=== PATIENT | female | born 1970 | race Caucasian/White ===

== ENCOUNTER 2021-11-19 15:20 | Inpatient (IN) ==
[2021-11-19 16:30] LABS: Basophils # (auto) 0.02 K/uL (0-0.2); Basophils % (auto) 0.1 %; Eosinophils # (auto) 0.03 K/uL (0-0.5); Eosinophils % (auto) 0.2 %; Hematocrit (blood only) 40.8 % (37-47); Hemoglobin 13.4 g/dL (12.0-16.0); Immature Granulocytes # (auto) 0.02 K/uL (0.00-0.02); Immature Granulocytes % (auto) 0.1 %; Lymphocytes # (auto) 1.17 K/uL (1.2-3.4); Lymphocytes % (auto) 8.3 %; Mean Corpuscular Hemoglobin 31.5 pg (25-34); Mean Corpuscular Hgb Conc 32.8 g/dL (32-36); Mean Corpuscular Volume 95.8 fL (80-100); Mean Platelet Volume 9.2 fL (7.4-10.4); Monocytes # (auto) 1.13 K/uL (0.11-0.59); Neutrophils # (auto) 11.68 K/uL (1.4-6.5); Neutrophils % (auto) 83.3 %; Platelet Count 266 K/uL (130-400); RDW Coefficient of Variation 13.1 % (11.5-14.5); RDW Standard Deviation 45.5 fL (36.4-46.3); Red Blood Count 4.26 M/uL (4.2-5.4); White Blood Count 14.05 K/uL (4.8-10.8)
[2021-11-19 16:52] LABS: Albumin Globulin Ratio 1.6 (0.9-2); Albumin Level 4.4 gm/dl (3.4-5.0); BUN Creatinine Ratio 13.8 (10-20); Bilirubin,Total 0.7 mg/dl (0.2-1.0); Calcium 9.5 mg/dl (8.5-10.1); Creatinine Clr Calc Pharmacy 90.8 ml/min; Est GFR (Non-African American) 105.2 ml/min; Globulin 2.8 gm/dl (2.5-4.0); Potassium 3.4 mmol/L (3.5-5.1); Total Protein 7.2 gm/dl (6.0-8.3)
[2021-11-19] MEDS ORDERED: KETOROLAC TROMETHAMINE 15 MG/ML VIAL IV STA ×2 (17:20→19:14)
[2021-11-19] MEDS ORDERED: ONDANSETRON INJ 2 MG/ML 2 ML VIAL IV STA (17:20)
[2021-11-19] MEDS ORDERED: SODIUM CHLORIDE 0.9% 1000ML 1,000 ML IV ONE (17:20)
[2021-11-19] MEDS ORDERED: OPTIRAY 320 100ml IV ONE (17:40)
--- NOTE | 2021-11-19 17:53 | CT Scan Report ---
ABDOMEN AND PELVIS CT WITH IV CONTRAST CT DOSE: 246.55 mGy.cm HISTORY: Left lower quadrant pain. TECHNIQUE: Multiaxial CT images of the abdomen and pelvis were performed following the use of intrave nous contrast. A dose lowering technique was utilized adhering to the principles of ALARA. COMPARISON STUDY: Abdomen and pelvis CT 02/13/2016. FINDINGS: The lung bases are clear. No pneumoperitoneum. No pneumatosis. No fractures within the visu alized osseous structures. The 6 mm stone versus polyp within the gallbladder on image 92. No gallbla dder wall thickening. The liver, spleen, adrenal glands, and pancreas are unremarkable. The kidneys e nhance normally. No hydronephrosis. The bladder, uterus, bilateral adnexa are within normal limits. T here is trace pelvic free fluid. This may be physiologic. No retroperitoneal lymphadenopathy. Normal caliber abdominal aorta. The main portal vein is patent. No pelvic lymphadenopathy. Prior sigmoid shakir stomosis. Scattered colonic diverticula. Focal thickening within the splenic flexure of the colon wit h pericolonic fat stranding within inflamed diverticulum. This is consistent with an acute diverticul itis. No perforation or abscess at this time. IMPRESSION: 1. Acute diverticulitis at the splenic flexure of the colon. No perforation or abscess at this time. Follow-up colonoscopy should be considered once the diverticulitis has resolved to exclude the less l ikely possibility of underlying colonic lesion. 2. A 6 mm stone versus polyp within the gallbladder. This can be further assessed with follow-up none mergent abdominal ultrasound. No gallbladder wall thickening. ACT 112: Positive. There are findings on this exam that require communication between the performing entity and the patient following Patient Test Result Information Act ([place] Act 112) guidelines. Electronically signed by: Tomer Stone M.D. 11/19/2021 5:52 PM
[2021-11-19] MEDS ORDERED: ERTAPENEM SODIUM 10 ML IV STA (18:11)
--- NOTE | 2021-11-19 18:53 | History & Physical Report ---
Date of Service November 19, 2021 History of Present Illness Chief Complaint: Abdominal pain Primary Care Provider: Sheron Gracia DO Patient is 51 y/o F with PMH Allergies Allergy/AdvReac Type Severity Reaction Status Date / Time metronidazole Allergy Severe Lip Verified 11/19/21 18:47 swelling, hives topiramate Allergy Severe SOB/HIVES Unverified 11/19/21 18:47 amoxicillin Allergy Unknown Rash Unverified 11/19/21 18:47 Cipro Allergy Unknown SWELLING Unverified 02/13/16 19:58 ciprofloxacin Allergy Unknown SWELLING Unverified 11/19/21 18:47 clavulanic acid Allergy Unknown RASH Unverified 11/19/21 18:47 propranolol Allergy Unknown Anxiety Unverified 11/19/21 18:47 morphine Allergy Hives Verified 11/19/21 18:47 imipenem AdvReac Mild Nausea Unverified 11/19/21 18:47 Home Medications Medication Instructions Recorded Confirmed Type Estrogen Cream 1 dose VAGINAL 2XWK 07/15/20 11/19/21 History ascorbic acid (vitamin C) 500 mg 500 mg PO QAM 07/15/20 11/19/21 History tablet (Vitamin C) multivitamin 1 tab PO QAM 07/15/20 11/19/21 History psyllium husk 3.4 gram/5.4 gram 1 tbsp PO HS 07/15/20 11/19/21 History oral powder (Metamucil) Turmeric Curcumin 1 tab PO DAILY 11/19/21 11/19/21 History acetaminophen 325 mg tablet 650 mg PO QID PRN 11/19/21 11/19/21 History (Tylenol) cholecalciferol (vitamin D3) 125 125 mcg PO DAILY 11/19/21 11/19/21 History mcg (5,000 unit) tablet (Vitamin D3) ibuprofen 200 mg tablet (Advil) 400 mg PO Q6H PRN 11/19/21 11/19/21 History Past Med/Surg History Medical History (Updated 11/19/21 @ 18:12 by Bryce Ospina) Carpal tunnel syndrome Diverticular disease Hearing deficit Rt HERNANDEZ History of melanoma Migraines Surgical History History of bowel resection History of colonoscopy History of D&C History of ear surgery History of melanoma excision History of wisdom tooth extraction Family History Grandmother (Paternal) Diabetes Other No family history of adverse response to anesthesia Social History Smoking Status: Never smoker Second Hand Exposure: Yes (as a child); Hx Alcohol Use: No Hx Substance Use: No Preferred Language: Portuguese Communication Ability: Effective Chiropractor Assistant Required: No Beliefs That Will Affect Care: None Current Living Situation: Spouse Feels Safe at Home: Yes Assistive Devices: Glasses and Hearing Aid - Right Results & Data Results & Data ([facility]) Vital Signs (Past 12 Hours) Vital Signs Temp Pulse Pulse Resp BP BP Pulse Ox 11/19/21 17:52 104 H 18 129/83 99 11/19/21 17:09 113 H 16 159/90 H 99 11/19/21 15:51 37.2 C 115 H 20 110/72 97
--- NOTE | 2021-11-19 19:42 | Emergency Department Note ---
History of Present Illness General Chief Complaint: GI Assessment Stated Complaint: LLQ ABDOMINAL PAIN, HX DIVERTICULITIS Time Seen by Provider: 11/19/21 16:59 History of Present Illness Provider Complaint: abdominal pain Onset (ago): day(s) Pain Consistency: intermittent Location: diffuse Severity: moderate Maximum Pain Intensity: 4 Current Pain Intensity: 4 Quality: + stabbing and + sharp Relieved By: + nothing Exacerbated By: + nothing Context: + history of similar episodes (Feels like diverticulitis but not located in the left lower quadrant); no foreign travel, no possible food poisoning, no sick contacts, no recent antibiotic use, no recent surger y/procedure or no recent injury Associated Symptoms: + nausea; no vomiting, no diarrhea, no fever, no chills, no constipation, no dysuria, no hematemesis, no hematochezia, no melena, no hematuria, no anorexia, no syncope, no headache, no neck pain, no back pain, no chest pain, no weakness, no breathing difficulty and no numbness Related Data Patient Confirmed : No Home Medications Medication Instructions Recorded Confirmed Type Estrogen Cream 1 dose VAGINAL 2XWK 07/15/20 11/19/21 History ascorbic acid (vitamin C) 500 mg 500 mg PO QAM 07/15/20 11/19/21 History tablet (Vitamin C) multivitamin 1 tab PO QAM 07/15/20 11/19/21 History psyllium husk 3.4 gram/5.4 gram 1 tbsp PO HS 07/15/20 11/19/21 History oral powder (Metamucil) Turmeric Curcumin 1 tab PO DAILY 11/19/21 11/19/21 History acetaminophen 325 mg tablet 650 mg PO QID PRN 11/19/21 11/19/21 History (Tylenol) cholecalciferol (vitamin D3) 125 125 mcg PO DAILY 11/19/21 11/19/21 History mcg (5,000 unit) tablet (Vitamin D3) ibuprofen 200 mg tablet (Advil) 400 mg PO Q6H PRN 11/19/21 11/19/21 History Allergies Allergy/AdvReac Type Severity Reaction Status Date / Time metronidazole Allergy Severe Lip Verified 11/19/21 18:47 swelling, hives topiramate Allergy Severe SOB/HIVES Unverified 11/19/21 18:47 amoxicillin Allergy Unknown Rash Unverified 11/19/21 18:47 Cipro Allergy Unknown SWELLING Unverified 02/13/16 19:58 ciprofloxacin Allergy Unknown SWELLING Unverified 11/19/21 18:47 clavulanic acid Allergy Unknown RASH Unverified 11/19/21 18:47 propranolol Allergy Unknown Anxiety Unverified 11/19/21 18:47 morphine Allergy Hives Verified 11/19/21 18:47 imipenem AdvReac Mild Nausea Unverified 11/19/21 18:47 Past Med/Surg History Medical History Carpal tunnel syndrome Diverticular disease Diverticulitis Hearing deficit Rt HERNANDEZ History of melanoma Migraines Surgical History History of bowel resection History of colonoscopy History of D&C History of ear surgery History of melanoma excision History of wisdom tooth extraction Family History Grandmother (Paternal) Diabetes Other No family history of adverse response to anesthesia Social History Smoking Status: Never smoker Second Hand Exposure: Yes (as a child); Hx Alcohol Use: No Hx Substance Use: No Preferred Language: Chilean Communication Ability: Effective Garment Sorter Required: No Beliefs That Will Affect Care: None Current Living Situation: Spouse Feels Safe at Home: Yes Assistive Devices: Glasses and Hearing Aid - Right Review of Systems A total of 10 systems reviewed and were otherwise negative Physical Exam Vital Signs: Vital Signs - 24 hr 11/19/21 15:51 11/19/21 17:09 11/19/21 17:52 Temperature 37.2 C Temperature Source Skin Pulse Rate 115 H Pulse Rate [Finger ] 113 H 104 H Pulse Rhythm Regular Pulse Strength Normal Respiratory Rate 20 16 18 Respiratory Effort / Characteristics Non-Labored Sponta neous Respiratory Depth Normal Respiratory Patter n Regular Blood Pressure 110/72 Blood Pressure [Le ft Arm] 159/90 H 129/83 Blood Pressure Fabiola n 84 Blood Pressure Fabiola n [Left Arm] 113 98 Pulse Oximetry 97 99 99 Oxygen Delivery Me thod Room Air Sepsis Recent Feve r Within 48 Hours No Sepsis New/Unexpla ined Change in Men lucy Status N/A Sepsis Action Take n by Nursing No Action Required Physical Exam: Physical Exam GENERAL: She is oriented to person, place, and time. She appears well-developed and well-nourished. She does not appear distressed. HENT: Exam performed. -Head: Normocephalic and atraumatic. -Right Ear: External ear normal. No mastoid tenderness. -Left Ear: External ear normal. No mastoid tenderness. -Mouth/Throat: The oropharynx is clear and moist. No trismus in the jaw. No dental abscesses or uvula swelling. No oropharyngeal exudate or tonsillar abscesses. EYES: Conjunctivae and EOM are normal. Pupils are equal, round, and reactive to light. Right eye exhibits no discharge. Left eye exhibits no discharge. No scleral icterus. NECK: Normal range of motion. Neck supple. No JVD present. No spinous process tenderness present. No carotid bruit present. No rigidity. No tracheal deviation and normal range of motion present. No Brudzinski's sign and no Kernig's sign noted. CV: Normal rate, regular rhythm, normal heart sounds and intact distal pulses. There is no peripheral edema. Palpable radial pulses bue. PULM/CHEST: Effort normal and breath sounds normal. No respiratory distress. No stridor. She has no wheezes. She has no rales. -Chest Wall: She exhibits no tenderness. ABD: The abdomen is soft. Bowel sounds are normal. She has no distension. No mass is present. There is tenderness to palpation of the abdomen diffusely There is no rebound, no guarding, no Bernstein's sign and no tenderness at McBurney's point. Rovsig negative MUSC/SKEL: Normal range of motion. There is no peripheral edema, tenderness or deformity. LYMPH: No cervical adenopathy. NEURO: She is alert and oriented to person, place, and time. She has normal strength. No cranial nerve deficit or sensory deficit. Coordination and gait normal. GCS eye subscore is 4. GCS verbal subscore is 5. GCS motor subscore is 6. Cerebellar tests wnl. SKIN: Skin is warm and dry. She is not diaphoretic. PSYCH: She has a normal mood and affect. Behavior is normal. Judgment and thought content normal. Course Course 1658: The patient was evaluated in room C6. A complete history and physical exam was performed Cardiac monitoring: An order was placed for continuous cardiac monitoring. The monitor shows a rate of 120 with sinus tachycardia rhythm 1852: Vital signs stable. Labs show leukocytosis of 14. CT shows sigmoid d iverticulitis. EMR reviewed. Patient has a history of diverticulitis and a history of diverticular perforation. Patient had to be on IV antibiotics for quite some time. Patient had her sigmoid colon removed at [place] due to her recurrent diverticulitis flares. Pharmacy assisted and suggested ertapenem for the patient given her allergies and previous history. Patient be admitted to the [facility] team spoke with Lisette who stated to admit to Dr. Quintero Administered Medications Discontinued Medications Sodium Chloride (Nss 1000ml) 1,000 mls @ 999 mls/hr IV .Q1H1M ONE Stop: 11/19/21 18:20 Last Admin: 11/19/21 17:25 Dose: 999 mls/hr Documented by: [id number] Ertapenem (Invanz) 10 mls @ 2 mls/min IV NOW STA Stop: 11/19/21 18:15 Last Admin: 11/19/21 18:16 Dose: 2 mls/min Documented by: [id number] Ioversol (Optiray 320 100ml) 93 ml IV ONCE ONE Stop: 11/19/21 17:41 Last Admin: 11/19/21 17:41 Dose: 93 ml Documented by: [id number] Ketorolac Tromethamine (Ketorolac Tromethamine 15 Mg/Ml Vial) 15 mg IV NOW STA Stop: 11/19/21 17:21 Last Admin: 11/19/21 17:25 Dose: 15 mg Documented by: [id number] Ketorolac Tromethamine (Ketorolac Tromethamine 15 Mg/Ml Vial) 15 mg IV NOW STA Stop: 11/19/21 19:15 Last Admin: 11/19/21 19:34 Dose: 15 mg Documented by: [id number] Ondansetron HCl (Ondansetron Inj 2 Mg/Ml 2 Ml Vial) 4 mg IV NOW STA Stop: 11/19/21 17:21 Last Admin: 11/19/21 17:25 Dose: 4 mg Documented by: [id number] Medical Decision Making Laboratory Data Result diagrams: 11/19/21 16:16 11/19/21 16:16 Lab Results 11/19/21 11/19/21 11/19/21 Range/Units 16:16 16:16 18:25 WBC 14.05 H (4.8-10.8) K/uL RBC 4.26 (4.2-5.4) M/uL Hgb 13.4 (12.0-16.0) g/dL Hct 40.8 (37-47) % MCV 95.8 (80-100) fL MCH 31.5 (25-34) pg MCHC 32.8 (32-36) g/dL RDW Std Deviation 45.5 (36.4-46.3) fL RDW Coeff of Bartolome 13.1 (11.5-14.5) % Plt Count 266 (130-400) K/uL MPV 9.2 (7.4-10.4) fL Immature Gran % (Auto) 0.1 % Neut % (Auto) 83.3 % Lymph % (Auto) 8.3 % Lynn % (Auto) 8.0 % Eos % (Auto) 0.2 % Baso % (Auto) 0.1 % Neut # (Auto) 11.68 H (1.4-6.5) K/uL Lymph # (Auto) 1.17 L (1.2-3.4) K/uL Lynn # (Auto) 1.13 H (0.11-0.59) K/uL Eos # (Auto) 0.03 (0-0.5) K/uL Baso # (Auto) 0.02 (0-0.2) K/uL Immature Gran # (Auto) 0.02 (0.00-0.02) K/uL Sodium 140 (136-145) mmol/L Potassium 3.4 L (3.5-5.1) mmol/L Chloride 106 (98-107) mmol/L Carbon Dioxide 26 (21-32) mmol/L Anion Gap 8 (3-11) BUN 8 (6-23) mg/dl Creatinine 0.58 L (0.6-1.2) mg/dl Est Cr Clr Drug Dosing 90.8 ml/min Est GFR ( Amer) 122.0 ml/min Est GFR (Non-Af Amer) 105.2 ml/min BUN/Creatinine Ratio 13.8 (10-20) Glucose 108 H (70-99(Fasting)) mg/dl Calcium 9.5 (8.5-10.1) mg/dl Total Bilirubin 0.7 (0.2-1.0) mg/dl AST 38 (13-39) U/L ALT 40 (7-52) U/L Alkaline Phosphatase 98 (34-104) U/L Total Protein 7.2 (6.0-8.3) gm/dl Albumin 4.4 (3.4-5.0) gm/dl Globulin 2.8 (2.5-4.0) gm/dl Albumin/Globulin Ratio 1.6 (0.9-2) Lipase 11 (11-82) U/L SARS-CoV-2, RNA, NAAT NEGATIVE (NEGATIVE) Imaging Data Radiologist's Impression: Abdomen/Pelvis CT 11/19/21 17:[address] WITH IV CONTRAST CT DOSE: 246.55 mGy.cm HISTORY: Left lower quadrant pain. TECHNIQUE: Multiaxial CT images of the abdomen and pelvis were performed following the use of intravenous contrast. A dose lowering technique was utilized adhering to the principles of ALARA. COMPARISON STUDY: Abdomen and pelvis CT 02/13/2016. FINDINGS: The lung bases are clear. No pneumoperitoneum. No pneumatosis. No fractures within the visualized osseous structures. The 6 mm stone versus polyp within the gallbladder on image 92. No gallbladder wall thickening. The liver, spleen, adrenal glands, and pancreas are unremarkable. The kidneys enhance normally. No hydronephrosis. The bladder, uterus, bilateral adnexa are within normal limits. There is trace pelvic free fluid. This may be physiologic. No retroperitoneal lymphadenopathy. Normal caliber abdominal aorta. The main portal vein is patent. No pelvic lymphadenopathy. Prior sigmoid anastomosis. Scattered colonic diverticula. Focal thickening within the splenic flexure of the colon with pericolonic fat stranding within inflamed diverticulum. This is consistent with an acute diverticulitis. No perforation or abscess at this time. IMPRESSION: 1. Acute diverticulitis at the splenic flexure of the colon. No perforation or abscess at this time. Follow-up colonoscopy should be considered once the diverticulitis has resolved to exclude the less likely possibility of underlying colonic lesion. 2. A 6 mm stone versus polyp within the gallbladder. This can be further assessed with follow-up nonemergent abdominal ultrasound. No gallbladder wall thickening. ACT 112: Positive. There are findings on this exam that require communication between the performing entity and the patient following Patient Test Result Information Act ([place] Act 112) guidelines. Electronically signed by: Tomer Stone M.D. 11/19/2021 5:52 PM MDM Narrative Vital signs stable. Labs show leukocytosis of 14. CT shows sigmoid diverticulitis. EMR reviewed. Patient has a history of diverticulitis and a history of diverticular perforation. Patient had to be on IV antibiotics for quite some time. Patient had her sigmoid colon removed at [place] due to her recurrent diverticulitis flares. Pharmacy assisted and suggested ertapenem for the patient given her allergies and previous history. Patient be admitted to the [facility] team spoke with Lisette who stated to admit to Dr. Quintero Impression & Plan Diverticulitis Discharge Plan Visit Data Chief Complaint: GI Assessment Stated Complaint: LLQ ABDOMINAL PAIN, HX DIVERTICULITIS ED Provider: Bryce Ospina Discharge Problem: Diverticulitis Patient Disposition: Admitted As Inpatient Forms Stand Alone Forms: [facility] [employer] Prescriptions Prescriptions: No Action ascorbic acid (vitamin C) [Vitamin C] 500 mg Tablet 500 mg PO QAM RF: 0 Metamucil 3.4 gram/5.4 gram Powder 1 tbsp PO HS RF: 0 Estrogen Cream 1 dose vaginal 2XWK RF: 0 multivitamin Tablet 1 tab PO QAM RF: 0 acetaminophen [Tylenol] 325 mg Tablet 650 mg PO QID PRN (Reason: Pain) RF: 0 ibuprofen [Advil] 200 mg Tablet 400 mg PO Q6H PRN (Reason: Pain) RF: 0 cholecalciferol (vitamin D3) [Vitamin D3] 125 mcg (5,000 unit) Tablet 125 mcg PO DAILY RF: 0 Turmeric Curcumin 1 tab PO DAILY RF: 0 Referrals Referrals: Sheron Gracia DO [Primary Care Provider] -
[2021-11-19] MEDS ORDERED: POTASSIUM CHLORIDE CRTAB 20 MEQ TABCR PO STA (19:54)
--- NOTE | 2021-11-19 20:36 | History and Physical Report ---
DATE OF ADMISSION: 11/19/2021. CHIEF COMPLAINT: Abdominal pain. HISTORY OF PRESENT ILLNESS: A 51-year-old female with past medical history significant for recurrent sinusitis, mixed hearing loss unilateral, eustachian tube dysfunction, seems to have history of diverticulitis, history of malignant melanoma, presents with abdominal pain. The pain started yesterday on the left side of abdomen radiating to the lower abdomen, moderate in severity, associated with nausea, no vomiting, no fever, no chills. She had a bowel movement today, it was normal. No blood in stool or black stools. Normal bladder movements. Currently, resting comfortably, hemodynamically stable. Denies any headache. No blurred visions, no earache, no runny nose, no sore throat, no cough, no chest pain, no shortness of breath. No neck pain. No swelling in the legs. ALLERGIES: METRONIDAZOLE, TOPIRAMATE, AMOXICILLIN, CIPRO, CLAVULANIC ACID, PROPRANOLOL, MORPHINE, IMIPENEM. PAST MEDICAL HISTORY: As mentioned above. PAST SURGICAL HISTORY: Colonoscopy, dental surgery, myringotomy, sigmoidectomy for diverticulitis, injection of lumbosacral spine, left leg knee-stage II melanoma. MEDICATIONS: The patient is on multivitamin daily, vitamin C 500 mg p.o. daily, Tylenol p.r.n. FAMILY HISTORY: Significant for mother had arthritis, hypertension; father has hypertension. Maternal grandmother had bladder and liver cancer, paternal grandmother had diabetes. PHYSICAL EXAMINATION: GENERAL: Alert and awake, not in acute distress. VITAL SIGNS: Temperature 37.2, pulse 104, respiratory rate 18, blood pressure 129/83, oxygen 99% on room air. HEENT: Pupils equal, round and reactive to light. Oral mucosa moist. NECK: No JVD. No neck masses. CARDIOVASCULAR: S1 and S2 heard. Regular rate and rhythm. No murmur, no gallop. RESPIRATORY SYSTEM: Normal AP diameter. No accessory muscle use. No wheezing, no crackles. ABDOMEN: Soft, bowel sounds present. Mild left lower quadrant discomfort, no guarding, no rigidity, no distention. CENTRAL NERVOUS SYSTEM: Cranial nerves II-XII grossly intact, nonfocal. EXTREMITIES: No edema, no erythema. LABORATORY DATA: WBC 14, hemoglobin 13.4, hematocrit 40.8, platelets 266. Sodium 140, potassium 3.4, chloride 106, bicarb 26, BUN 8, creatinine 0.5, serum glucose 108, calcium 9.5, total bilirubin 0.7, AST 38, ALT 40, alkaline phosphatase 98, lipase 11. SARS-CoV-2 negative. IMAGING DATA: CT of abdomen and pelvis shows acute diverticulitis at the splenic flexure of the colon. No perforation or abscess. A 6mm stone versus polyp within the gallbladder. ASSESSMENT AND PLAN: This is a 51-year-old female who presents with acute diverticulitis. 1. Acute diverticulitis: N.p.o., IV fluids, IV antiemetics, IV Invanz. Monitor kidney function while patient is on Invanz for any dose adjustments. Surgical consult in a.m. Pain control, IV fluids.Colonoscopy about 8 weeks later. 2. Gallbladder polyp versus stone: We will get a gallbladder ultrasound. 3. Deep venous thrombosis prophylaxis: Sequential compression devices. DISPOSITION: Admit to medical floor. Expect to discharge home and follow with family doctor. Job ID: [id number] [facility]
[2021-11-19] MEDS ORDERED: ACETAMINOPHEN 325 MG TAB PO PRN (21:03)
[2021-11-19] MEDS ORDERED: ONDANSETRON INJ 2 MG/ML 2 ML VIAL IV PRN (21:03)
[2021-11-19] MEDS: D5W AND 1/2NSS 1,000 ML IV SCH (21:47)
--- NOTE | 2021-11-19 23:58 | Surgery Consultation ---
Date of Consultation November 19, 2021 Assessment & Plan (1) Diverticulitis large intestine: pt is a 51 year-old female who presents to ER with left side abdominal pain, pt had sigmoid colectomy in 2016 at [facility], Plan, I agree with conservative treatment, NPO, IV fluid, iv antibiotic, control pain, repeat labs in morning, U/S study gallbladder, and colonoscopy( wait 2-3 months) out-patient setting, will F/U, pt agrees with the plan, I answered all questions, History of Present Illness Reason for Consultation: diverticulitis Requesting Physician: Ramy Quintero MD Attending Physician: Ramy Quintero MD History of Present Illness CHIEF COMPLAINT: Abdominal pain. HISTORY OF PRESENT ILLNESS: A 51-year-old female with past medical history significant for recurrent sinusitis, mixed hearing loss unilateral, eustachian tube dysfunction, seems to have history of diverticulitis, history of malignant melanoma, presents with abdominal pain. The pain started yesterday on the left side of abdomen radiating to the lower abdomen, moderate in severity, associated with nausea, no vomiting, no fever, no chills. She had a bowel movement today, it was normal. No blood in stool or black stools. Normal bladder movements. Currently, resting comfortably, hemodynamically stable. Denies any headache. No blurred visions, no earache, no runny nose, no sore throat, no cough, no chest pain, no shortness of breath. No neck pain. No swelling in the legs. I ( Luis Jiménez MD ) got a call for consult diverticulitis, I reviewed pt's H/P, labs, CT scan with pt, pt had sigmoid colo resection for diverticulitis in 2016, ALLERGIES: METRONIDAZOLE, TOPIRAMATE, AMOXICILLIN, CIPRO, CLAVULANIC ACID, PROPRANOLOL, MORPHINE, IMIPENEM. PAST MEDICAL HISTORY: As mentioned above. PAST SURGICAL HISTORY: Colonoscopy, dental surgery, myringotomy, sigmoidectomy for diverticulitis, injection of lumbosacral spine, left leg knee-stage II melanoma. MEDICATIONS: The patient is on multivitamin daily, vitamin C 500 mg p.o. daily, Tylenol p.r.n. FAMILY HISTORY: Significant for mother had arthritis, hypertension; father has hypertension. Maternal grandmother had bladder and liver cancer, paternal grandmother had diabetes. Allergies Allergy/AdvReac Type Severity Reaction Status Date / Time metronidazole Allergy Severe Lip Verified 11/19/21 18:47 swelling, hives topiramate Allergy Severe SOB/HIVES Unverified 11/19/21 18:47 amoxicillin Allergy Unknown Rash Unverified 11/19/21 18:47 Cipro Allergy Unknown SWELLING Unverified 02/13/16 19:58 ciprofloxacin Allergy Unknown SWELLING Unverified 11/19/21 18:47 clavulanic acid Allergy Unknown RASH Unverified 11/19/21 18:47 propranolol Allergy Unknown Anxiety Unverified 11/19/21 18:47 morphine Allergy Hives Verified 11/19/21 18:47 imipenem AdvReac Mild Nausea Unverified 11/19/21 18:47 Home Medications Medication Instructions Recorded Confirmed Type Estrogen Cream 1 dose VAGINAL [id number] 07/15/20 11/19/21 History ascorbic acid (vitamin C) 500 mg 500 mg PO QAM 07/15/20 11/19/21 History tablet (Vitamin C) multivitamin 1 tab PO QAM 07/15/20 11/19/21 History psyllium husk 3.4 gram/5.4 gram 1 tbsp PO HS 07/15/20 11/19/21 History oral powder (Metamucil) Turmeric Curcumin 1 tab PO DAILY 11/19/21 11/19/21 History acetaminophen 325 mg tablet 650 mg PO QID PRN 11/19/21 11/19/21 History (Tylenol) cholecalciferol (vitamin D3) 125 125 mcg PO DAILY 11/19/21 11/19/21 History mcg (5,000 unit) tablet (Vitamin D3) ibuprofen 200 mg tablet (Advil) 400 mg PO Q6H PRN 11/19/21 11/19/21 History Patient History Medical History Carpal tunnel syndrome Diverticular disease Diverticulitis Hearing deficit Rt HERNANDEZ History of melanoma Migraines Surgical History History of bowel resection History of colonoscopy History of D&C History of ear surgery History of melanoma excision History of wisdom tooth extraction Family History Grandmother (Paternal) Diabetes Other No family history of adverse response to anesthesia Social History Smoking Status: Never smoker Second Hand Exposure: No; Do You Dip or Chew Tobacco: No; Tobacco Cessation Education Requested by Patient: No Hx Alcohol Use: No Hx Substance Use: No Preferred Language: Nepalese Communication Ability: Effective Pens And Pencils Repairer Required: No Beliefs That Will Affect Care: None Current Living Situation: Spouse Other Information That Helps Us Care for You: No Feels Safe at Home: Yes Safety Concerns: Feels Safe At This Time Assistive Devices: Glasses and Hearing Aid - Right Physical Exam Constitutional: WD/WN, vitals as above Eyes: PERRL, conjunctivae normal, anicteric sclerae Neck: trachea midline, no thyromegaly Respiratory: normal respiratory effort, lungs clear to auscultation Cardiovascular: RRR, no murmur, no edema Gastrointestinal (Abdomen): soft, mild tenderness at left side abdomen, no rebound pain, no distend, BS + Musculoskeletal: no cyanosis or clubbing, extremities motor strength 5/5 Neurologic: patellar DTR's 2+ bilat, sensation intact Psychiatric: A+Ox3, euthymic affect Results & Data ([facility]) Vital Signs (Past 12 Hours) Vital Signs Temp Pulse Pulse Resp BP BP Pulse Ox 11/19/21 21:04 37.1 C 81 18 121/75 97 11/19/21 20:12 92 H 19 134/85 97 11/19/21 17:52 104 H 18 129/83 99 11/19/21 17:09 113 H 16 159/90 H 99 11/19/21 15:51 37.2 C 115 H 20 110/72 97 Laboratory Results Abnormal lab results 11/19/21 11/19/21 Range/Units 16:16 16:16 WBC 14.05 H (4.8-10.8) K/uL Neut # (Auto) 11.68 H (1.4-6.5) K/uL Lymph # (Auto) 1.17 L (1.2-3.4) K/uL [place] # (Auto) 1.13 H (0.11-0.59) K/uL Potassium 3.4 L (3.5-5.1) mmol/L Creatinine 0.58 L (0.6-1.2) mg/dl Glucose 108 H (70-99(Fasting)) mg/dl Diagnostic Findings ABDOMEN AND PELVIS CT WITH IV CONTRAST CT DOSE: 246.55 mGy.cm HISTORY: Left lower quadrant pain. TECHNIQUE: Multiaxial CT images of the abdomen and pelvis were performed following the use of intravenous contrast. A dose lowering technique was utilized adhering to the principles of ALARA. COMPARISON STUDY: Abdomen and pelvis CT 02/13/2016. FINDINGS: The lung bases are clear. No pneumoperitoneum. No pneumatosis. No fractures within the visualized osseous structures. The 6 mm stone versus polyp within the gallbladder on image 92. No gallbladder wall thickening. The liver, spleen, adrenal glands, and pancreas are unremarkable. The kidneys enhance normally. No hydronephrosis. The bladder, uterus, bilateral adnexa are within normal limits. There is trace pelvic free fluid. This may be physiologic. No retroperitoneal lymphadenopathy. Normal caliber abdominal aorta. The main portal vein is patent. No pelvic lymphadenopathy. Prior sigmoid anastomosis. Scattered colonic diverticula. Focal thickening within the splenic flexure of the colon with pericolonic fat stranding within inflamed diverticulum. This is consistent with an acute diverticulitis. No perforation or abscess at this time. IMPRESSION: 1. Acute diverticulitis at the splenic flexure of the colon. No perforation or abscess at this time. Follow-up colonoscopy should be considered once the diverticulitis has resolved to exclude the less likely possibility of underlying colonic lesion. 2. A 6 mm stone versus polyp within the gallbladder. This can be further assessed with follow-up nonemergent abdominal ultrasound. No gallbladder wall thickening.
[2021-11-20] MEDS: KETOROLAC 30 MG/ML VIAL IV PRN ×2 (03:30→15:10)
[2021-11-20] MEDS: D5W AND 1/2NSS 1,000 ML IV SCH ×3 (05:26→20:05)
[2021-11-20 06:07] LABS: Basophils # (auto) 0.02 K/uL (0-0.2); Basophils % (auto) 0.2 %; Eosinophils # (auto) 0.15 K/uL (0-0.5); Eosinophils % (auto) 1.4 %; Hematocrit (blood only) 34.4 % (37-47); Hemoglobin 11.1 g/dL (12.0-16.0); Immature Granulocytes # (auto) 0.02 K/uL (0.00-0.02); Immature Granulocytes % (auto) 0.2 %; Lymphocytes % (auto) 12.3 %; Mean Corpuscular Hemoglobin 31.3 pg (25-34); Mean Corpuscular Hgb Conc 32.3 g/dL (32-36); Mean Corpuscular Volume 96.9 fL (80-100); Mean Platelet Volume 9.4 fL (7.4-10.4); Monocytes # (auto) 0.96 K/uL (0.11-0.59); Monocytes % (auto) 9.1 %; Neutrophils # (auto) 8.11 K/uL (1.4-6.5); Neutrophils % (auto) 76.8 %; Platelet Count 239 K/uL (130-400); RDW Coefficient of Variation 13.3 % (11.5-14.5); RDW Standard Deviation 46.5 fL (36.4-46.3); Red Blood Count 3.55 M/uL (4.2-5.4); White Blood Count 10.56 K/uL (4.8-10.8)
[2021-11-20 06:41] LABS: Calcium 8.5 mg/dl (8.5-10.1); Creatinine Clr Calc Pharmacy 114.5 ml/min; Est GFR (African American) 131.6 ml/min; Est GFR (Non-African American) 113.6 ml/min; Magnesium 1.9 mg/dl (1.7-2.4); Potassium 3.5 mmol/L (3.5-5.1)
--- NOTE | 2021-11-20 10:29 | Ultrasound Report ---
US gallbladder CLINICAL HISTORY: gallbladder polyp vs stone COMPARISON STUDY: CT of the abdomen and pelvis November 19, 2021. FINDINGS: Liver is sonographically normal. There is no biliary ductal dilatation. Common bile duct me asures 3 mm in caliber. There is no gallbladder wall thickening. No sonographic Bernstein sign was elici mc. Multiple nonmobile echogenic foci adherent to the gallbladder wall are suggestive of polyps. The largest measures 1.3 cm. This contains color flow. No gallstones are identified. Pancreas is unremar kable by sonography. There is no right hydronephrosis. IMPRESSION: 1. Multiple gallbladder polyps that measure up to 1.3 cm. Nonemergent Surgical consultation is recomm ended as cholecystectomy is typically indicated for polyps larger than 1 cm. 2. No biliary ductal dilatation. ACT 112: Negative or not required by law. Electronically signed by: Johnny Perez M.D. 11/20/2021 10:28 AM
[2021-11-20] MEDS: ADVANCED PROBIOTIC 1250 MG CAPSULE PO SCH (10:51)
[2021-11-20] MEDS: MULTIVITAMIN TAB PO SCH (10:52)
[2021-11-20] MEDS: CHOLECALCIFEROL 5,000 UNITS 125 MCG TAB PO SCH (10:53)
--- NOTE | 2021-11-20 12:48 | Hospitalist Progress Note ---
Date of Service November 20, 2021 Assessment & Plan (1) Diverticulitis large intestine: Plan: 51-year-old female with past medical history significant for recurrent sinusitis, mixed hearing loss unilateral, eustachian tube dysfunction,rec diverticulitis, malignant melanoma, C. 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 She is being managed for the followin. Acute diverticulitis: History of recurrent diverticulitis, allergies to metronidazole/ciprofloxacin/Augmentin in the past. History of recurrent C. difficile in the past. History of colon resection 2016 for complicated diverticulitis with perforation. Patient does not smoke tobacco/does not drink alcohol/does not use illegal drugs. Patient uses laxatives daily to avoid constipation. Admitting CTAP: Acute diverticulitis at the splenic flexure of the colon. Surgery on board, appreciate recommendations. N.p.o., plan to transition to clear liquid diet if pain improves. Patient reports improving pain, IV fluids, IV antibiotics, IV ertapenem, monitor kidney function while patient on ertapenem Follow-up with GI or surgery as an outpatient for colonoscopy in 2 to 3 months. 2. Gallbladder polyp: 11/20 USG gallbladder: Multiple gallbladder polyps that measures up to 1.3 cm Follow-up with surgery for likely cholecystectomy. Surgery on board, appreciate recommendations. 3. Deep venous thrombosis prophylaxis: Heparin Disposition: Downgrade to MedSurg, likely DC in 1 to 2 days with improvement of pain and if she tolerates diet. She will likely need current IV antibiotics upon discharge. Admission and Anticipated Discharge Date Admission Date: November 19, 2021 Subjective Patient seen and examined at bedside as a follow-up for acute diverticulitis and gallbladder polyp. Patient lying in bed, on room air, NAD, no new acute events overnight. Patient reports improving belly pain. Patient has not moved bowel since yesterday morning. Patient remains n.p.o. Plan to initiate clear liquid diet later in the day if pain continues to be better. Patient reports headache [patient does have migraine and she gets those headaches on and off with lack of sleep and lack of caffeine], patient given Tylenol, continue to monitor. Patient denies dizziness/cough/chest pain/palpitations/pain or burning with passing urine/other review of symptoms. Physical Exam Physical Exam: GENERAL: Alert and oriented x3. NAD, on RA. HEENT: No pallor, no icterus. Pupils equal, round and reactive to light. Oral mucosa moist. NECK: No JVD, no neck masses. HEART: S1 and S2 heard. Regular rate and rhythm. No murmur, no gallop. RESPIRATORY SYSTEM: Normal AP diameter. No accessory muscle use. No wheezing, no crackles. ABDOMEN: Soft, bowel sounds present, LLQ tender, no distention. CENTRAL NERVOUS SYSTEM: No facial droop. Speech is clear. Obeys simple commands. Moves extremities. EXTREMITIES: No edema, no erythema seen. Results & Data Results & Data ([facility]) Vital Signs (Past 12 Hours) Vital Signs Temp Pulse Pulse Resp BP BP Pulse Ox 11/20/21 07:32 90 11/20/21 07:20 36.6 C 76 19 114/75 96 11/20/21 04:11 36.9 C 85 20 124/85 98 11/20/21 03:56 82
--- NOTE | 2021-11-20 13:26 | Surgery Progress Note ---
Date of Service November 20, 2021 Assessment & Plan (1) Diverticulitis large intestine: Plan: pt is a 51 year-old female who presents to ER with left side abdominal pain, pt had sigmoid colectomy in 2016 at [facility], Plan, I agree with conservative treatment, NPO, IV fluid, iv antibiotic, control pain, repeat labs in morning, U/S study gallbladder, and colonoscopy( wait 2-3 months) out-patient setting, will F/U, pt agrees with the plan, I answered all questions, 11/20/2021 1:24PM, Dr. Jiménez F/U diverticulitis, doing better, less abdominal pain, clear diet today, possible D/C home tomorrow with po antibiotic will F/U Admission and Anticipated Discharge Date Admission Date: November 19, 2021 Subjective Patient seen and examined at bedside as a follow-up for acute diverticulitis and gallbladder polyp. Patient lying in bed, on room air, NAD, no new acute events overnight. Patient reports improving belly pain. Patient has not moved bowel since yesterday morning. Patient remains n.p.o. Plan to initiate clear liquid diet later in the day if pain continues to be better. Patient reports headache [patient does have migraine and she gets those headaches on and off with lack of sleep and lack of caffeine], patient given Tylenol, continue to monitor. Patient denies dizziness/cough/chest pain/palpitations/pain or burning with passing urine/other review of symptoms. 11/20/2021 1:22PM, Dr. Jiménez, F/U diverticulitis, pt feels better, less abdominal pain, no fever, Physical Exam Constitutional: WD/WN, vitals as above Eyes: PERRL, conjunctivae normal, anicteric sclerae Neck: trachea midline, no thyromegaly Respiratory: normal respiratory effort, lungs clear to auscultation Cardiovascular: RRR, no murmur, no edema Gastrointestinal (Abdomen): soft, mild tenderness at left side abdomen, no rebound pain, no distend, BS + Musculoskeletal: no cyanosis or clubbing, extremities motor strength 5/5 Neurologic: patellar DTR's 2+ bilat, sensation intact Psychiatric: A+Ox3, euthymic affect Results & Data ([facility]) Vital Signs (Past 12 Hours) Vital Signs Temp Pulse Pulse Resp BP BP Pulse Ox 11/20/21 07:32 90 11/20/21 07:20 36.6 C 76 19 114/75 96 11/20/21 04:11 36.9 C 85 20 124/85 98 11/20/21 03:56 82 Laboratory Results Abnormal lab results 11/19/21 11/19/21 11/20/21 Range/Units 16:16 16:16 05:22 WBC 14.05 H (4.8-10.8) K/uL RBC 3.55 L (4.2-5.4) M/uL Hgb 11.1 L (12.0-16.0) g/dL Hct 34.4 L (37-47) % RDW Std Deviation 46.5 H (36.4-46.3) fL Neut # (Auto) 11.68 H 8.11 H (1.4-6.5) K/uL Lymph # (Auto) 1.17 L (1.2-3.4) K/uL [place] # (Auto) 1.13 H 0.96 H (0.11-0.59) K/uL Potassium 3.4 L (3.5-5.1) mmol/L Ch[place]ide (98-107) mmol/L Creatinine 0.58 L (0.6-1.2) mg/dl Glucose 108 H (70-99(Fasting)) mg/dl 11/20/21 Range/Units 05:22 WBC (4.8-10.8) K/uL RBC (4.2-5.4) M/uL Hgb (12.0-16.0) g/dL Hct (37-47) % RDW Std Deviation (36.4-46.3) fL Neut # (Auto) (1.4-6.5) K/uL Lymph # (Auto) (1.2-3.4) K/uL [place] # (Auto) (0.11-0.59) K/uL Potassium (3.5-5.1) mmol/L Chloride 111 H (98-107) mmol/L Creatinine 0.46 L (0.6-1.2) mg/dl Glucose 109 H (70-99(Fasting)) mg/dl
[2021-11-20] MEDS: ERTAPENEM SODIUM 1,000 MG in SYRINGE 0 ML IV SCH (17:44)
[2021-11-20] MEDS: HEPARIN SOD 5,000 UNIT/0.5 ML VIAL SQ SCH (20:05)
[2021-11-21] MEDS: D5W AND 1/2NSS 1,000 ML IV SCH ×2 (03:48→11:50)
[2021-11-21 06:27] LABS: Hematocrit (blood only) 34.9 % (37-47); Hemoglobin 11.1 g/dL (12.0-16.0); Mean Corpuscular Hgb Conc 31.8 g/dL (32-36); Mean Corpuscular Volume 97.5 fL (80-100); Platelet Count 237 K/uL (130-400); RDW Coefficient of Variation 13.1 % (11.5-14.5); RDW Standard Deviation 46.9 fL (36.4-46.3); Red Blood Count 3.58 M/uL (4.2-5.4); White Blood Count 5.61 K/uL (4.8-10.8)
[2021-11-21 06:48] LABS: BUN Creatinine Ratio 8.2 (10-20); Calcium 8.5 mg/dl (8.5-10.1); Creatinine Clr Calc Pharmacy 109.2 ml/min; Est GFR (African American) 128.9 ml/min; Est GFR (Non-African American) 111.2 ml/min; Magnesium 1.8 mg/dl (1.7-2.4); Phosphorus 2.6 mg/dl (2.5-4.9); Potassium 3.8 mmol/L (3.5-5.1)
[2021-11-21] MEDS: MULTIVITAMIN TAB PO SCH (09:54)
[2021-11-21] MEDS: CHOLECALCIFEROL 5,000 UNITS 125 MCG TAB PO SCH (09:54)
[2021-11-21] MEDS: HEPARIN SOD 5,000 UNIT/0.5 ML VIAL SQ SCH ×2 (09:54→20:48)
[2021-11-21] MEDS: ADVANCED PROBIOTIC 1250 MG CAPSULE PO SCH (09:54)
--- NOTE | 2021-11-21 13:47 | Surgery Progress Note ---
Date of Service November 21, 2021 Assessment & Plan (1) Diverticulitis large intestine: Plan: pt is a 51 year-old female who presents to ER with left side abdominal pain, pt had sigmoid colectomy in 2016 at [facility], Plan, I agree with conservative treatment, NPO, IV fluid, iv antibiotic, control pain, repeat labs in morning, U/S study gallbladder, and colonoscopy( wait 2-3 months) out-patient setting, will F/U, pt agrees with the plan, I answered all questions, 11/20/2021 1:24PM, Dr. Jiménez F/Jacquelyn diverticulitis, doing better, less abdominal pain, clear diet today, possible D/C home tomorrow with po antibiotic will F/U 11/21/2021 1: 48PM Dr. Jiménez, uncomplicated diverticulitis,- tolerated diet, continue antibiotic treatment, sign off today, gallbladder polyps- recommend to do cholecystectomy out-patient sitting, F/U me or other surgeon in 2-4 weeks, , please call with questions, thanks, Admission and Anticipated Discharge Date Admission Date: November 19, 2021 Subjective Patient seen and examined at bedside as a follow-up for acute diverticulitis and gallbladder polyp. Patient lying in bed, on room air, NAD, no new acute events overnight. Patient reports improving belly pain. Patient has not moved bowel since yesterday morning. Patient remains n.p.o. Plan to initiate clear liquid diet later in the day if pain continues to be better. Patient reports headache [patient does have migraine and she gets those headaches on and off with lack of sleep and lack of caffeine], patient given Tylenol, continue to monitor. Patient denies dizziness/cough/chest pain/palpitations/pain or burning with passing urine/other review of symptoms. 11/20/2021 1:22PM, Dr. Jiménez, Valentine/Jacquelyn diverticulitis, pt feels better, less abdominal pain, no fever, 11/21/2021 1;46Pm, Dr. anais Grijalva/Jacquelyn diverticulitis, pt feels better, less abdominal pain, no fever, tolerated clear diet, Physical Exam Constitutional: WD/WN, vitals as above Eyes: PERRL, conjunctivae normal, anicteric sclerae Neck: trachea midline, no thyromegaly Respiratory: normal respiratory effort, lungs clear to auscultation Cardiovascular: RRR, no murmur, no edema Gastrointestinal (Abdomen): soft, mild tenderness at left side abdomen, no rebound pain, no distend, Bs + Musculoskeletal: no cyanosis or clubbing, extremities motor strength 5/5 Neurologic: patellar DTR's 2+ bilat, sensation intact Psychiatric: A+Ox3, euthymic affect Results & Data ([facility]) Vital Signs (Past 12 Hours) Vital Signs Temp Pulse Pulse Resp BP BP Pulse Ox 11/21/21 11:29 77 11/21/21 11:10 36.7 C 71 21 133/82 99 11/21/21 04:10 36.9 C 78 18 109/69 97 11/21/21 01:48 69 Laboratory Results Abnormal lab results 11/21/21 11/21/21 Range/Units 06:09 06:09 RBC 3.58 L (4.2-5.4) M/uL Hgb 11.1 L (12.0-16.0) g/dL Hct 34.9 L (37-47) % MCHC 31.8 L (32-36) g/dL RDW Std Deviation 46.9 H (36.4-46.3) fL Chloride 111 H (98-107) mmol/L BUN 4 L (6-23) mg/dl Creatinine 0.49 L (0.6-1.2) mg/dl BUN/Creatinine Ratio 8.2 L (10-20) Glucose 102 H (70-99(Fasting)) mg/dl Diagnostic Findings US gallbladder CLINICAL HISTORY: gallbladder polyp vs stone COMPARISON STUDY: CT of the abdomen and pelvis November 19, 2021. FINDINGS: Liver is sonographically normal. There is no biliary ductal dilatation. Common bile duct measures 3 mm in caliber. There is no gallbladder wall thickening. No sonographic Bernstein sign was elicited. Multiple nonmobile echogenic foci adherent to the gallbladder wall are suggestive of polyps. The largest measures 1.3 cm. This contains color flow. No gallstones are identified. Pancreas is unremarkable by sonography. There is no right hydronephrosis. IMPRESSION: 1. Multiple gallbladder polyps that measure up to 1.3 cm. Nonemergent Surgical consultation is recommended as cholecystectomy is typically indicated for polyps larger than 1 cm. 2. No biliary ductal dilatation.
--- NOTE | 2021-11-21 18:31 | Hospitalist Progress Note ---
Date of Service November 21, 2021 Assessment & Plan (1) Diverticulitis large intestine: Plan: 51-year-old female with past medical history significant for recurrent sinusitis, mixed hearing loss unilateral, eustachian tube dysfunction,rec diverticulitis, malignant melanoma, C. 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 She is being managed for the followin. Acute diverticulitis: History of recurrent diverticulitis, allergies to metronidazole/ciprofloxacin/Augmentin in the past. History of recurrent C. difficile in the past. History of colon resection 2016 for complicated diverticulitis with perforation. Patient does not smoke tobacco/does not drink alcohol/does not use illegal drugs. Patient uses laxatives daily to avoid constipation. Admitting CTAP: Acute diverticulitis at the splenic flexure of the colon. Surgery on board, appreciate recommendations. Tolerating diet, patient had 2 diarrheal movements in the evening, send C. difficile if multiple diarrheal movements. Patient reports improving pain, IV antibiotics, IV ertapenem, monitor kidney function while patient on ertapenem Follow-up with GI or surgery as an outpatient for colonoscopy in 2 to 3 months. 2. Gallbladder polyp: 11/20 USG gallbladder: Multiple gallbladder polyps that measures up to 1.3 cm Follow-up with surgery for likely cholecystectomy. Surgery on board, appreciate recommendations. Follow-up with surgery as an outpatient. 3. Deep venous thrombosis prophylaxis: Heparin Disposition: Downgrade to [facility], was probable DC today, patient started having diarrhea in the evening, patient concerned, will observe overnight. Admission and Anticipated Discharge Date Admission Date: November 19, 2021 Subjective Patient seen and examined at bedside as a follow-up for acute diverticulitis and gallbladder polyp. Patient lying in bed, on room air, NAD, no new acute events overnight. Patient reports improving belly pain. Patient tolerating advancement of diet. Patient reports having 2 diarrheal bowel movements in the evening, hence discharge held, observe overnight. Patient denies dizziness/cough/chest pain/palpitations/pain or burning with passing urine/other review of symptoms. Physical Exam Physical Exam: GENERAL: Alert and oriented x3. NAD, on RA. HEENT: No pallor, no icterus. Pupils equal, round and reactive to light. Oral mucosa moist. NECK: No JVD, no neck masses. HEART: S1 and S2 heard. Regular rate and rhythm. No murmur, no gallop. RESPIRATORY SYSTEM: Normal AP diameter. No accessory muscle use. No wheezing, no crackles. ABDOMEN: Soft, bowel sounds present, LLQ tender--> improved, no distention. CENTRAL NERVOUS SYSTEM: No facial droop. Speech is clear. Obeys simple commands. Moves extremities. EXTREMITIES: No edema, no erythema seen. Results & Data Results & Data ([facility]) Vital Signs (Past 12 Hours) Vital Signs Temp Pulse Pulse Resp BP Pulse Ox 11/21/21 17:27 82 11/21/21 15:27 36.5 C 84 20 135/88 96 11/21/21 11:29 77 11/21/21 11:10 36.7 C 71 21 133/82 99
[2021-11-21] MEDS: ERTAPENEM SODIUM 1,000 MG in SYRINGE 0 ML IV SCH (18:50)
[2021-11-22 06:59] LABS: Hematocrit (blood only) 36.9 % (37-47); Mean Corpuscular Hemoglobin 31.3 pg (25-34); Mean Corpuscular Hgb Conc 32.5 g/dL (32-36); Mean Corpuscular Volume 96.1 fL (80-100); Mean Platelet Volume 9.2 fL (7.4-10.4); Platelet Count 282 K/uL (130-400); RDW Standard Deviation 45.1 fL (36.4-46.3); Red Blood Count 3.84 M/uL (4.2-5.4)
[2021-11-22 07:32] LABS: BUN Creatinine Ratio 14.1 (10-20); Calcium 8.8 mg/dl (8.5-10.1); Creatinine Clr Calc Pharmacy 83.6 ml/min; Est GFR (African American) 118.1 ml/min; Est GFR (Non-African American) 101.9 ml/min; Magnesium 1.8 mg/dl (1.7-2.4); Potassium 3.5 mmol/L (3.5-5.1)
[2021-11-22] MEDS: MULTIVITAMIN TAB PO SCH (08:41)
[2021-11-22] MEDS: CHOLECALCIFEROL 5,000 UNITS 125 MCG TAB PO SCH (08:41)
[2021-11-22] MEDS: ADVANCED PROBIOTIC 1250 MG CAPSULE PO SCH (08:41)
[2021-11-22] MEDS: HEPARIN SOD 5,000 UNIT/0.5 ML VIAL SQ SCH (12:55)
--- NOTE | 2021-11-22 13:33 | Discharge Summary ---
Date of Service November 22, 2021 Admission HPI Per Admitting Provider DATE OF ADMISSION: 11/19/2021. CHIEF COMPLAINT: Abdominal pain. HISTORY OF PRESENT ILLNESS: A 51-year-old female with past medical history significant for recurrent sinusitis, mixed hearing loss unilateral, eustachian tube dysfunction, seems to have history of diverticulitis, history of malignant melanoma, presents with abdominal pain. The pain started yesterday on the left side of abdomen radiating to the lower abdomen, moderate in severity, associated with nausea, no vomiting, no fever, no chills. She had a bowel movement today, it was normal. No blood in stool or black stools. Normal bladder movements. Currently, resting comfortably, hemodynamically stable. Denies any headache. No blurred visions, no earache, no runny nose, no sore throat, no cough, no chest pain, no shortness of breath. No neck pain. No swelling in the legs. ALLERGIES: METRONIDAZOLE, TOPIRAMATE, AMOXICILLIN, CIPRO, CLAVULANIC ACID, PROPRANOLOL, MORPHINE, IMIPENEM. PAST MEDICAL HISTORY: As mentioned above. PAST SURGICAL HISTORY: Colonoscopy, dental surgery, myringotomy, sigmoidectomy for diverticulitis, injection of lumbosacral spine, left leg knee-stage II melanoma. MEDICATIONS: The patient is on multivitamin daily, vitamin C 500 mg p.o. daily, Tylenol p.r.n. FAMILY HISTORY: Significant for mother had arthritis, hypertension; father has hypertension. Maternal grandmother had bladder and liver cancer, paternal grandmother had diabetes. Admission Exam Per Admitting Provider GENERAL: Alert and awake, not in acute distress. VITAL SIGNS: Temperature 37.2, pulse 104, respiratory rate 18, blood pressure 129/83, oxygen 99% on room air. HEENT: Pupils equal, round and reactive to light. Oral mucosa moist. NECK: No JVD. No neck masses. CARDIOVASCULAR: S1 and S2 heard. Regular rate and rhythm. No murmur, no gallop. RESPIRATORY SYSTEM: Normal AP diameter. No accessory muscle use. No wheezing, no crackles. ABDOMEN: Soft, bowel sounds present. Mild left lower quadrant discomfort, no guarding, no rigidity, no distention. CENTRAL NERVOUS SYSTEM: Cranial nerves II-XII grossly intact, nonfocal. EXTREMITIES: No edema, no erythema. Principal Diagnosis Acute diverticulitis Gallbladder polyp Discharge Exam GENERAL: Alert and oriented x3. NAD, on RA. HEENT: No pallor, no icterus. Pupils equal, round and reactive to light. Oral mucosa moist. NECK: No JVD, no neck masses. HEART: S1 and S2 heard. Regular rate and rhythm. No murmur, no gallop. RESPIRATORY SYSTEM: Normal AP diameter. No accessory muscle use. No wheezing, no crackles. ABDOMEN: Soft, bowel sounds present, LLQ non tender, no distention. CENTRAL NERVOUS SYSTEM: No facial droop. Speech is clear. Obeys simple commands. Moves extremities. EXTREMITIES: No edema, no erythema seen. Discharge Data Allergies Allergy/AdvReac Type Severity Reaction Status Date / Time metronidazole Allergy Severe Lip Verified 11/19/21 18:47 swelling, hives topiramate Allergy Severe SOB/HIVES Unverified 11/19/21 18:47 amoxicillin Allergy Unknown Rash Unverified 11/19/21 18:47 Cipro Allergy Unknown SWELLING Unverified 02/13/16 19:58 ciprofloxacin Allergy Unknown SWELLING Unverified 11/19/21 18:47 clavulanic acid Allergy Unknown RASH Unverified 11/19/21 18:47 propranolol Allergy Unknown Anxiety Unverified 11/19/21 18:47 morphine Allergy Hives Verified 11/19/21 18:47 imipenem AdvReac Mild Nausea Unverified 11/19/21 18:47 Consultations 11/19/21 18:20 ED Decision to Admit Stat 11/20/21 08:00 Consult General Surgery Routine Ordered Studies 11/19/21 17:00 CT abd pelvis IV con only Stat 11/20/21 08:00 US gallbladder Routine Hospital Course (1) Diverticulitis large intestine: 51-year-old female with past medical history significant for recurrent sinusitis, mixed hearing loss unilateral, eustachian tube dysfunction,rec diverticulitis, malignant melanoma, C. diff x2 in the past presented 11/19 with abdominal pain x 1 day FOREIGN DIPLOMAT X LLQ and a/w N but no V, fever or chills. She was being managed for the followin. Acute diverticulitis: History of recurrent diverticulitis, allergies to metronidazol e/ciprofloxacin/Augmentin in the past. History of recurrent C. difficile in the past. History of colon resection 2016 for complicated diverticulitis with perforation. Patient does not smoke tobacco/does not drink alcohol/does not use illegal drugs. Patient uses laxatives daily to avoid constipation. Admitting CTAP: Acute diverticulitis at the splenic flexure of the colon. Surgery evaluated, appreciate recommendations. Tolerating diet, pt reporting improvement in bowel movements Patient reports no pain, IV antibiotics, IV ertapenem, monitor kidney function while patient on ertapenem Follow-up with GI or surgery as an outpatient for colonoscopy in 2 to 3 months. IV ertapenem upon DC. US guided peripheral iv line. 2. Gallbladder polyp: 11/20 USG gallbladder: Multiple gallbladder polyps that measures up to 1.3 cm Follow-up with surgery for likely cholecystectomy. Surgery evaluated, appreciate recommendations. Follow-up with surgery as an outpatient. Patient being discharged home with following instruction at the point of discharge: Follow-up with your primary care physician within a week time. Continue with IV antibiotics as an outpatient. You will need to follow-up with GI in 6 to 8 weeks due to your recent diverticulitis. You will need to follow-up with surgery as an outpatient for setting of cholecystectomy for your gallbladder polyp. Get your blood work CMP done 1 week upon discharge and at the completion of your IV antibiotic. Continue with probiotic for the same duration of your antibiotic. Take medications as prescribed. Total Time Total Time Spent Total Time Spent (In Minutes): 33 Discharge Plan Discharge Items Patient Disposition: Home - Self-Care Reason For Visit: DIVERTICULITIS Discharge Diagnosis: Acute diverticulitis Gallbladder polyp Activity: Resume your previous activity Non-emergency contact: Primary Care Provider Call non-emergency contact if: you have any medication questions, your symptoms worsen, your pain is not controlled and your temperature is above 101 Follow-up/Referrals: [facility] [Other] (The [facility] Office will call you for an appointment ) Medical Treatment Unit [Other] ([facility] 11/22/21 @1430 for outpatient eErtapenem daily for 10 days) Sheron Gracia DO [Primary Care Provider] - (Date & Time 11/29/2021 11:20 AM Provider Sheron Gracia DO Department [facility] ) Luis Jiménez MD [Physician] - (The [facility] Surgery Office will call you for an appointment for follow up ) Diet: Regular Diet Texture: Dental soft (bite-sized) Diet Comment: Soft diet upon discharge, advance as tolerated. Addtl Attending Provider Instructions: Follow-up with your primary care physician within a week time. Continue with IV antibiotics as an outpatient. You will need to follow-up with GI in 6 to 8 weeks due to your recent diverticulitis. You will need to follow-up with surgery as an outpatient for setting of cholecystectomy for your gallbladder polyp. Get your blood work CMP done 1 week upon discharge and at the completion of your IV antibiotic. Continue with probiotic for the same duration of your antibiotic. Take medications as prescribed. Pending Studies at Discharge: No Stand-Alone Forms: [facility] [employer], Smoking Cessation Medications and DC Order Prescriptions: New ertapenem 1 gram recon soln 1 g IV DAILY 10 Days Qty: 10 RF: 0 Advanced Probiotic 625 mg (10 billion cell) Capsule 2 cap PO DAILY 10 Days Qty: 20 RF: 0 Continued ascorbic acid (vitamin C) [Vitamin C] 500 mg Tablet 500 mg PO QAM RF: 0 Metamucil 3.4 gram/5.4 gram Powder 1 tbsp PO HS RF: 0 Estrogen Cream 1 dose vaginal [id number] RF: 0 multivitamin Tablet 1 tab PO QAM RF: 0 acetaminophen [Tylenol] 325 mg Tablet 650 mg PO QID PRN (Reason: Pain) RF: 0 ibuprofen [Advil] 200 mg Tablet 400 mg PO Q6H PRN (Reason: Pain) RF: 0 cholecalciferol (vitamin D3) [Vitamin D3] 125 mcg (5,000 unit) Tablet 125 mcg PO DAILY RF: 0 Turmeric Curcumin 1 tab PO DAILY RF: 0 Discharge Orders: Discharge Order (Routine); Ordered 11/22/21 Ordered By: Vincenzo Vasquez Admission Data Admit Date/Time: 11/19/21 19:04 Attending Provider: Vincenzo Vasquez Admit Provider: Ramy Quintero Primary Care Provider: Sheron Gracia Other Providers: Ramy Quintero ; Yevgeniy Garcia ; Taj Real ; Delmy Hamm ; Alicia Rainey ; Javi Queen ; Marco Coello ; Crystal Williamson ; Leena Schulz ; Jarrod Stern Jr ; Luis Jiménez ; Felix Qiu ; Padma Walton
[2021-11-22] MEDS: ERTAPENEM SODIUM 1,000 MG in SYRINGE 0 ML IV SCH (15:36)
== END 2021-11-22 16:31 | disposition home or self-care (01) | DRG 392 ==
LOC: ED 15:20 → SUATTDRO 19:04 → 2N 19:04 → UNDODISIN 11-22 14:28

== ENCOUNTER 2023-02-28 23:08 | Inpatient (IN) ==
[2023-02-28] MEDS ORDERED: SODIUM CHLORIDE 0.9% 1000ML 1,000 ML IV STA (23:22)
[2023-02-28] MEDS ORDERED: KETOROLAC 30 MG/ML VIAL IV STA (23:27)
--- NOTE | 2023-02-28 23:30 | Emergency Department Note ---
History of Present Illness General Chief complaint: Abdominal Pain Stated complaint: ABD PAIN,HX DIVERTICULITIS Time Seen by Provider: 02/28/23 23:21 History of Present Illness Maximum Pain Intensity: 8 52-year-old female with a history of diverticulitis and some chronic diarrhea presents with knee 10-hour history of lower quadrant abdominal pain with associated diarrhea. Patient is followed by GI and had taken cholestyramine this morning after she had diarrhea. Patient denies any nausea vomiting denies back pain denies urinary symptoms denies fever. Patient states that the crampy abdominal pain is located in the lower quadrants. There are no other mitigating or alleviating factors. Patient denies bloody diarrhea. Home Medications Medication Instructions Recorded Confirmed Type multivitamin 1 tab PO QAM 07/15/20 02/28/23 History psyllium husk 3.4 gram/5.4 gram 1 tbsp PO HS 07/15/20 02/28/23 History oral powder (Metamucil) acetaminophen 325 mg tablet 650 mg PO QID PRN Pain 11/19/21 02/28/23 History (Tylenol) cholecalciferol (vitamin D3) 125 125 mcg PO QAM 11/19/21 02/28/23 History mcg (5,000 unit) tablet (Vitamin D3) loratadine 10 mg capsule 10 mg PO QAM PRN Congestion 01/13/22 02/28/23 History lorazepam 0.5 mg tablet 0.5 mg PO HS PRN Sleep 01/13/22 02/28/23 History Calcium Gummy 1 tab PO DAILY 10/12/22 02/28/23 History cholestyramine (with sugar) 4 gram 1 ea PO DAILY 02/28/23 02/28/23 History powder for susp in a packet clobetasol 0.05 % topical cream 1 applic topical DIRECTED PRN 02/28/23 02/28/23 History Skin Irritation estradiol 10 mcg vaginal tablet 10 mcg vaginal DIRECTED 02/28/23 02/28/23 History fluticasone propionate 50 2 spray intranasal DAILY PRN 02/28/23 02/28/23 History mcg/actuation nasal Congestion spray,suspension omeprazole 20 mg capsule,delayed 20 mg PO DAILY 02/28/23 02/28/23 History release rimegepant 75 mg disintegrating 75 mg PO DIRECTED PRN Migraine 02/28/23 02/28/23 History tablet (Nurtec ODT) Headache Allergies Allergy/AdvReac Type Severity Reaction Status Date / Time metronidazole Allergy Severe Lip Verified 02/28/23 23:41 swelling, hives topiramate Allergy Severe SOB/HIVES Verified 02/28/23 23:41 amoxicillin Allergy Intermediate Rash Verified 02/28/23 23:41 ciprofloxacin Allergy Intermediate SWELLING Verified 02/28/23 23:41 clavulanic acid Allergy Intermediate RASH Verified 02/28/23 23:41 morphine Allergy Intermediate Hives Verified 02/28/23 23:41 imipenem AdvReac Intermediate Nausea Verified 02/28/23 23:41 propranolol AdvReac Intermediate Anxiety Verified 02/28/23 23:41 Past Med/Surg History Medical History Anxiety Carpal tunnel syndrome Diverticular disease Diverticulitis Hearing deficit Rt HERNANDEZ History of melanoma Migraines HX Surgical History History of anesthesia reaction VERTIGO DAY ONE POST OP WITH BOWEL RESECTION History of bowel resection 2016 History of carpal tunnel release LEFT History of cholecystectomy History of colonoscopy 2006 History of D&C History of ear surgery RIGHT TYMPANOPLASTY WITH PROSTHESIS History of melanoma excision LEFT LEG/ARM History of wisdom tooth extraction Family History Grandmother (Paternal) Diabetes Other No family history of adverse response to anesthesia Social History Smoking Status: Never smoker Second Hand Exposure: No; Do You Dip or Chew Tobacco: No; Hx Alcohol Use: Yes Alcohol type: wine and hard liquor Hx Substance Use: No Preferred Language: Libyan Communication Ability: Effective Skin Care Therapist Required: No Beliefs That Will Affect Care: None marital status: Current Living Situation: Spouse and Family current occupational status: employed 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 How many Children do You have: 1 Feels Safe at Home: Yes Assistive Devices: Glasses and Hearing Aid - Right Review of Systems A total of 10 systems reviewed and were otherwise negative Gastrointestinal: + abdominal pain and + diarrhea/loose stools; no nausea Physical Exam Vital Signs Vital Signs - 24 hr 02/28/23 23:11 02/28/23 23:29 02/28/23 23:29 Temperature 36.4 C L Temperature Source Temporal Artery Scan Pulse Rate 103 H Pulse Rate [Finger] 98 H Pulse Rhythm [Finger] Regular Respiratory Rate 18 18 Respiratory Effort / Characteristics Non-Labored Spontaneous Non-Labored Spontaneous Respiratory Depth Normal Normal Respiratory Pattern Regular Blood Pressure 114/88 Blood Pressure [Left Arm] 143/87 H Blood Pressure Mean 96 Blood Pressure Mean [Left Arm] 105 Blood Pressure Position Sitting Pulse Oximetry 97 98 Oxygen Delivery Method Room Air Room Air Room Air Sepsis Recent Fever Within 48 Hours No Sepsis New/Unexplained Change in Mental Status N/A Sepsis Action Taken by Nursing No Action Required 02/28/23 23:36 Temperature Temperature Source Pulse Rate 87 Pulse Rate [Finger] Pulse Rhythm [Finger] Respiratory Rate Respiratory Effort / Characteristics Respiratory Depth Respiratory Pattern Blood Pressure Blood Pressure [Left Arm] Blood Pressure Mean Blood Pressure Mean [Left Arm] Blood Pressure Position Pulse Oximetry Oxygen Delivery Method Sepsis Recent Fever Within 48 Hours Sepsis New/Unexplained Change in Mental Status Sepsis Action Taken by Nursing GENERAL: Patient is awake alert in no acute distress patient is resting comfortably and showing no signs of anxiety EYES: The conjunctivae are clear. The pupils are round and reactive. EARS, NOSE, MOUTH AND THROAT: The nose is without any evidence of any deformity. Mucous membranes are moist. Tongue is midline. NECK: The neck is nontender and supple. RESPIRATORY: Normal respiratory effort is noted there is no evidence of wheezing rhonchi or rales CARDIOVASCULAR: Regular rate and rhythm noted there no murmurs rubs or gallops normal S1 normal S2. GASTROINTESTINAL: The abdomen is soft. Abdomen is nontender. There is no rebound rigidity guarding; there are no masses palpated BACK: Full range of motion MUSCULOSKELETAL/EXTREMITIES: There is no evidence of gross deformity full range of motion is noted in the hips and shoulders. SKIN: There is no obvious evidence of any rash. There are no petechiae, pallor or cyanosis noted. NEUROLOGIC: Patient is awake alert and oriented x3 strength is symmetric Course Reevaluation(s) Reevaluation #1: Patient was started on IV fluids IV Toradol. Patient has significant allergies to multiple antibiotics used to treat diverticulitis. I discussed evaluation with the patient at bedside; she states that she is required admission before due to her allergies to receive IV antibiotics. Time: 01:56 Consultations Consultation #1: Case was discussed with the [facility] Hospitalist for admission Time: 01:57 Administered Medications Discontinued Medications Sodium Chloride (Nss 1000ml) 1,000 mls @ 999 mls/hr IV .Q1H1M STA Stop: 03/01/23 00:22 Last Infusion: 03/01/23 01:25 Dose: 0 mls/hr Documented By: Admin: 02/28/23 23:34 Dose: 999 mls/hr Documented By: LIBERTY Ioversol (Optiray 320 500ml) 100 ml IV ONCE ONE Stop: 03/01/23 00:53 Last Admin: 03/01/23 00:52 Dose: 95 ml Documented By: GERBER Ketorolac Tromethamine (Ketorolac 30 Mg/Ml Vial) 30 mg IV NOW STA Stop: 02/28/23 23:28 Last Admin: 02/28/23 23:34 Dose: 30 mg Documented By: LIBERTY Medical Decision Making Medical Records Attestation: I reviewed the patient's medical records. Home Medications Current Medication List: was personally reviewed by Laboratory Data Attestation: I reviewed the patient's lab results. Patient has an elevated white blood cell count as interpreted by me 02/28/23 23:33 02/28/23 23:33 Lab Results 02/28/23 02/28/23 02/28/23 Range/Units 23:33 23:33 23:33 WBC 14.40 H (4.8-10.8) K/ul RBC 4.18 L (4.20-5.40) M/uL Hgb 13.2 (12.0-16.0) g/dl Hct 39.8 (37.0-47.0) % MCV 95.2 (80.0-100.0) fL MCH 31.6 (25.0-34.0) pg MCHC 33.2 (32.0-36.0) g/dL RDW Std Deviation 43.5 (36.4-46.3) fL RDW Coeff of Bartolome 12.4 (11.5-14.5) % Plt Count 253 (130-400) K/uL MPV 9.5 (9.4-12.4) fL Immature Gran % (Auto) 0.5 % Neut % (Auto) 74.4 % Lymph % (Auto) 15.6 % [place] % (Auto) 8.2 % Eos % (Auto) 0.9 % Baso % (Auto) 0.4 % Neut # (Auto) 10.71 H (1.40-6.50) K/uL Lymph # (Auto) 2.25 (1.2-3.4) K/uL [place] # (Auto) 1.18 H (0.11-0.59) K/uL Eos # (Auto) 0.13 (0-0.50) K/uL Baso # (Auto) 0.06 (0-0.2) K/uL Immature Gran # (Auto) 0.07 (0.01-0.20) K/uL Sodium 139 (136-145) mmol/L Potassium 3.4 L (3.5-5.1) mmol/L Chloride 106 (98-107) mmol/L Carbon Dioxide 26 (21-32) mmol/L Anion Gap 7 (3-11) BUN 17 (6-23) mg/dl Creatinine 0.68 (0.6-1.2) mg/dl Est Cr Clr Drug Dosing 67.9 ml/min Est GFR ( Amer) 114.9 ml/min Est GFR (Non-Af Amer) 99.2 ml/min BUN/Creatinine Ratio 25.0 H (10-20) Glucose 108 H (70-99(Fasting)) mg/dl Calcium 9.5 (8.6-10.3) mg/dl Magnesium 2.0 (1.7-2.4) mg/dl Total Bilirubin 0.5 (0.2-1.0) mg/dl AST 20 (13-39) U/L ALT 27 (7-52) U/L Alkaline Phosphatase 80 (34-104) U/L Total Protein 7.0 (6.0-8.3) gm/dl Albumin 4.5 (3.4-5.0) gm/dl Globulin 2.5 (2.5-4.0) gm/dl Albumin/Globulin Ratio 1.8 (0.9-2) Urine Color Yellow Urine Appearance Clear (Clear) Urine pH 6.0 (4.5-7.5) Ur Specific [place] 1.006 (1.000-1.030) Urine Protein Negative (Negative) Urine Glucose (UA) Negative (Negative) Urine Ketones Negative (Negative) Urine Blood Trace H (Negative) Urine Nitrite Negative (Negative) Urine Bilirubin Negative (Negative) Urine Urobilinogen Negative (Negative) Ur Leukocyte Esterase 1+ H (Negative) Urine WBC (Auto) 0 (0-5) /hpf Urine RBC (Auto) 0-4 (0-4) /hpf U Hyaline Cast (Auto) 0 (0-5) /lpf U Epithel Cells (Auto) 0-5 (0-5) /lpf Urine Bacteria (Auto) Negative (Negative) Imaging Data My Impression: CT abdomen pelvis interpreted by me negative for bowel obstruction Radiologist's Impression: Abdomen/Pelvis CT 02/28/23 23:22 Exam(s): CT ABDOMEN + PELVIS With Contrast IV Amt: 95 ML OPTIRAY 320 EXAM: CT Abdomen and Pelvis With Intravenous Contrast CLINICAL HISTORY: Reason for exam: lower abd pain, diverticulitis hx. TECHNIQUE: Axial computed tomography images of the abdomen and pelvis with intravenous contrast. CTDI is I have always found a fire to reach somebody and I do not trust them within the first couple minutes I just hang up; and then get someone else. 7.29 mGy and DLP is 319.38 mGy-cm. Automated exposure control was utilized for the study. A dose lowering technique was utilized adhering to the principles of ALARA. CONTRAST: Patient received 95 ML OPTIRAY 320 of IV contrast COMPARISON: CT November 30, 2021 FINDINGS: Lung bases: Unremarkable. No mass. No consolidation. ABDOMEN: Liver: Unremarkable. No mass. Gallbladder and bile ducts: Cholecystectomy. No ductal dilation. Pancreas: Unremarkable. No mass. No ductal dilation. Spleen: Unremarkable. No splenomegaly. Adrenals: Unremarkable. No mass. Kidneys and ureters: Unremarkable. No solid mass. No hydronephrosis. Stomach and bowel: Diverticulosis. There is no lesion affecting a short segment of the proximal sigmoid colon consistent with diverticulitis. No obstruction. PELVIS: Appendix: No findings to suggest acute appendicitis. Bladder: Unremarkable. No mass. Reproductive: Unremarkable as visualized. ABDOMEN and PELVIS: Intraperitoneal space: Unremarkable. No free air. No significant fluid collection. Bones/joints: No acute fracture. No dislocation. Soft tissues: Unremarkable. Vasculature: Unremarkable. No abdominal aortic aneurysm. Lymph nodes: Unremarkable. No enlarged lymph nodes. IMPRESSION: Sigmoid diverticulitis. No evidence of abscess or perforation. Electronically signed by: Jarrod Peng MD 03/01/23 01:23 AM [facility] Narrative Medical decision making differential diagnosis includes gastritis, gastroenteritis, colitis, diverticulitis, electrolyte abnormality, small bowel obstruction Plan is to check labs, CT abdomen pelvis, give IV fluids, IV Toradol External medical records were reviewed by me Patient will be admitted for IV antibiotics, the case was discussed with the [facility] hospitalist who accepts the patient for admission. The patient requires admission to the fact that she has a multitude of allergies of antibiotics that would typically treat diverticulitis that is uncomplicated as an outpatient. Impression & Plan Diverticulitis Discharge Plan Visit Data Chief Complaint: Abdominal Pain Stated Complaint: ABD PAIN,HX DIVERTICULITIS ED Provider: Walter Pearce Discharge Problem: Diverticulitis Patient Disposition: Admitted As Inpatient Forms Stand Alone Forms: [facility] [place] [employer] Prescriptions Prescriptions: No Action Metamucil 3.4 gram/5.4 gram Powder 1 tbsp PO HS multivitamin Tablet 1 tab PO QAM Calcium Gummy 1 tab PO DAILY clobetasol 0.05 % cream 1 applic TOPICAL DIRECTED PRN (Reason: Skin Irritation) omeprazole 20 mg capsule,delayed release(DR/EC) 20 mg PO DAILY fluticasone propionate 50 mcg/actuation spray,suspension 2 spray INTRANASAL DAILY PRN (Reason: Congestion) cholestyramine (with sugar) 4 gram powder in packet 1 ea PO DAILY estradiol 10 mcg tablet 10 mcg VAGINAL DIRECTED Rx Instructions: PER PT "HAVEN'T USED IN A WHILE". Nurtec ODT 75 mg tablet,disintegrating 75 mg PO DIRECTED PRN (Reason: Migraine Headache) acetaminophen [Tylenol] 325 mg Tablet 650 mg PO QID PRN (Reason: Pain) cholecalciferol (vitamin D3) [Vitamin D3] 125 mcg (5,000 unit) Tablet 125 mcg PO QAM loratadine 10 mg Capsule 10 mg PO QAM PRN (Reason: Congestion) lorazepam 0.5 mg Tablet 0.5 mg PO HS PRN (Reason: Sleep) Referrals Referrals: Sheron Gracia, [Primary Care Provider] -
[2023-02-28 23:48] LABS: Appearance Urine Clear (Clear); Bilirubin Urine Negative (Negative); Blood Urine Trace (Negative); Color Urine Yellow; Glucose Urine UA Negative (Negative); Ketones Urine Negative (Negative); Leukocyte Esterase Urine 1+ (Negative); Nitrite Urine Negative (Negative); Protein Urine Negative (Negative); Specific Gravity Urine 1.006 (1.000-1.030); Urobilinogen Urine Negative (Negative)
[2023-02-28 23:54] LABS: Basophils # (auto) 0.06 K/uL (0-0.2); Basophils % (auto) 0.4 %; Eosinophils # (auto) 0.13 K/uL (0-0.50); Eosinophils % (auto) 0.9 %; Hematocrit (blood only) 39.8 % (37.0-47.0); Hemoglobin 13.2 g/dl (12.0-16.0); Immature Granulocytes # (auto) 0.07 K/uL (0.01-0.20); Immature Granulocytes % (auto) 0.5 %; Lymphocytes # (auto) 2.25 K/uL (1.2-3.4); Lymphocytes % (auto) 15.6 %; Mean Corpuscular Hemoglobin 31.6 pg (25.0-34.0); Mean Corpuscular Hgb Conc 33.2 g/dL (32.0-36.0); Mean Corpuscular Volume 95.2 fL (80.0-100.0); Mean Platelet Volume 9.5 fL (9.4-12.4); Monocytes # (auto) 1.18 K/uL (0.11-0.59); Monocytes % (auto) 8.2 %; Neutrophils # (auto) 10.71 K/uL (1.40-6.50); Neutrophils % (auto) 74.4 %; Platelet Count 253 K/uL (130-400); RDW Coefficient of Variation 12.4 % (11.5-14.5); RDW Standard Deviation 43.5 fL (36.4-46.3); Red Blood Count 4.18 M/uL (4.20-5.40)
[2023-03-01 00:06] LABS: Albumin Globulin Ratio 1.8 (0.9-2); Albumin Level 4.5 gm/dl (3.4-5.0); Bilirubin,Total 0.5 mg/dl (0.2-1.0); Calcium 9.5 mg/dl (8.6-10.3); Creatinine Clr Calc Pharmacy 67.9 ml/min; Est GFR (African American) 114.9 ml/min; Est GFR (Non-African American) 99.2 ml/min; Globulin 2.5 gm/dl (2.5-4.0); Potassium 3.4 mmol/L (3.5-5.1)
[2023-03-01 00:09] LABS: Bacteria Urine Automated Negative (Negative); Cast Urine Automated 0 /lpf (0-5); Epithelial Cell Urine Auto 0-5 /lpf (0-5); RBC Urine Automated 0-4 /hpf (0-4); WBC Urine Automated 0 /hpf (0-5)
[2023-03-01] MEDS ORDERED: OPTIRAY 320 500ml IV ONE (00:52)
--- NOTE | 2023-03-01 01:24 | CT Scan Report ---
Exam(s): CT ABDOMEN + PELVIS With Contrast IV Amt: 95 ML OPTIRAY 320 EXAM: CT Abdomen and Pelvis With Intravenous Contrast CLINICAL HISTORY: Reason for exam: lower abd pain, diverticulitis hx. TECHNIQUE: Axial computed tomography images of the abdomen and pelvis with intravenous contrast. CTDI is I have always found a fire to reach somebody and I do not trust them within the first couple minutes I just hang up; and then get someone else. 7.29 mGy and DLP is 319.38 mGy-cm. Automated exposure control was utilized for the study. A dose lowering technique was utilized adhering to the principles of ALARA. CONTRAST: Patient received 95 ML OPTIRAY 320 of IV contrast COMPARISON: CT November 30, 2021 FINDINGS: Lung bases: Unremarkable. No mass. No consolidation. ABDOMEN: Liver: Unremarkable. No mass. Gallbladder and bile ducts: Cholecystectomy. No ductal dilation. Pancreas: Unremarkable. No mass. No ductal dilation. Spleen: Unremarkable. No splenomegaly. Adrenals: Unremarkable. No mass. Kidneys and ureters: Unremarkable. No solid mass. No hydronephrosis. Stomach and bowel: Diverticulosis. There is no lesion affecting a short segment of the proximal sigmoid colon consistent with diverticulitis. No obstruction. PELVIS: Appendix: No findings to suggest acute appendicitis. Bladder: Unremarkable. No mass. Reproductive: Unremarkable as visualized. ABDOMEN and PELVIS: Intraperitoneal space: Unremarkable. No free air. No significant fluid collection. Bones/joints: No acute fracture. No dislocation. Soft tissues: Unremarkable. Vasculature: Unremarkable. No abdominal aortic aneurysm. Lymph nodes: Unremarkable. No enlarged lymph nodes. IMPRESSION: Sigmoid diverticulitis. No evidence of abscess or perforation. Electronically signed by: Jarrod Peng MD 03/01/23 01:23 AM
[2023-03-01] MEDS ORDERED: ERTAPENEM SODIUM 10 ML IV STA (01:49)
[2023-03-01] MEDS ORDERED: POTASSIUM CHLORIDE CRTAB 20 MEQ TABCR PO STA (01:52)
[2023-03-01] MEDS ORDERED: NSS + 20MEQ KCL 20 MEQ/1,000 ML BAG IV ONE (01:52)
--- NOTE | 2023-03-01 02:21 | History & Physical Report ---
Date of Service March 01, 2023 Assessment & Plan (1) Sepsis: Plan: Secondary to recurrent diverticulitis History bowel surgery Chronic diarrhea Noted 1 year postcholecystectomy Patient presenting with malnutrition/low BMI. hx malignant melanoma status post surgery Hypokalemia secondary diarrhea GMF CS, Ertapenem (owing to patient's multiple allergies) GI consult Re: Recurrent diverticulitis Stool work-up as requested by GI outpatient Replace potassium Nutrition consult Re: Low BMI DVT prophylaxis. Heparin subcu Full code Text document was generated using [employer] voice recognition software. It may contain grammatical or spelling errors. Kindly contact undersigned for clarification of any documentation item in question. History of Present Illness Chief Complaint: Abdominal pain Primary Care Provider: Sheron Gracia, History obtained from patient, family, and records. Medical history significant for recurrent diverticulitis status post surgery, past history C. difficile as per records, malignant melanoma status post surgery, migraine, anxiety disorder. Last confinement October 2021 for recurrent diverticulitis. IV ertapenem course completed due to patient's multiple antibiotic allergies. Patient has had diarrhea, poor appetite since cholecystectomy last year. About 20 pound weight loss. On colonoscopy last year. Denies depression. Patient seen at [facility] office last week. Provider recommended imaging and endoscopy, stool work-up. Patient prescribed PPI in question trial. Patient had first dose of Questran yesterday morning. She later on noted achy lower abdominal pain reminiscent of diverticulitis attack. Some nausea, no vomiting. No fever, no chills. Patient brought to ER by for evaluation. IV Ertapenem administered at the ER for diverticulitis due to patient's multiple allergies. Medical History as above 2021 colonoscopy showed diverticulosis, end-to-side anastomosis at 15 cm. Ascending colon polyp. Hemorrhoids. 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 Allergies Allergy/AdvReac Type Severity Reaction Status Date / Time metronidazole Allergy Severe Lip Verified 02/28/23 23:41 swelling, hives topiramate Allergy Severe SOB/HIVES Verified 02/28/23 23:41 amoxicillin Allergy Intermediate Rash Verified 02/28/23 23:41 ciprofloxacin Allergy Intermediate SWELLING Verified 02/28/23 23:41 clavulanic acid Allergy Intermediate RASH Verified 02/28/23 23:41 morphine Allergy Intermediate Hives Verified 02/28/23 23:41 imipenem AdvReac Intermediate Nausea Verified 02/28/23 23:41 propranolol AdvReac Intermediate Anxiety Verified 02/28/23 23:41 Home Medications Medication Instructions Recorded Confirmed Type multivitamin 1 tab PO QAM 07/15/20 02/28/23 History psyllium husk 3.4 gram/5.4 gram 1 tbsp PO HS 07/15/20 02/28/23 History oral powder (Metamucil) acetaminophen 325 mg tablet 650 mg PO QID PRN Pain 11/19/21 02/28/23 History (Tylenol) cholecalciferol (vitamin D3) 125 125 mcg PO QAM 11/19/21 02/28/23 History mcg (5,000 unit) tablet (Vitamin D3) loratadine 10 mg capsule 10 mg PO QAM PRN Congestion 01/13/22 02/28/23 History lorazepam 0.5 mg tablet 0.5 mg PO HS PRN Sleep 01/13/22 02/28/23 History Calcium Gummy 1 tab PO DAILY 10/12/22 02/28/23 History cholestyramine (with sugar) 4 gram 1 ea PO DAILY 02/28/23 02/28/23 History powder for susp in a packet clobetasol 0.05 % topical cream 1 applic topical DIRECTED PRN 02/28/23 02/28/23 History Skin Irritation estradiol 10 mcg vaginal tablet 10 mcg vaginal DIRECTED 02/28/23 02/28/23 History fluticasone propionate 50 2 spray intranasal DAILY PRN 02/28/23 02/28/23 History mcg/actuation nasal Congestion spray,suspension omeprazole 20 mg capsule,delayed 20 mg PO DAILY 02/28/23 02/28/23 History release rimegepant 75 mg disintegrating 75 mg PO DIRECTED PRN Migraine 02/28/23 02/28/23 History tablet (Nurtec ODT) Headache Past Med/Surg History Medical History Anxiety Carpal tunnel syndrome Diverticular disease Diverticulitis Hearing deficit Rt HERNNADEZ History of melanoma Migraines HX Surgical History History of anesthesia reaction VERTIGO DAY ONE POST OP WITH BOWEL RESECTION History of bowel resection 2016 History of carpal tunnel release LEFT History of cholecystectomy History of colonoscopy 2006 History of D&C History of ear surgery RIGHT TYMPANOPLASTY WITH PROSTHESIS History of melanoma excision LEFT LEG/ARM History of wisdom tooth extraction Family History Grandmother (Paternal) Diabetes Other No family history of adverse response to anesthesia Social History Smoking Status: Never smoker Second Hand Exposure: No; Do You Dip or Chew Tobacco: No; Hx Alcohol Use: Yes Alcohol type: wine and hard liquor Hx Substance Use: No Preferred Language: Kazakh Communication Ability: Effective Soda Worker Required: No Beliefs That Will Affect Care: None marital status: Current Living Situation: Spouse current occupational status: employed 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 How many Children do You have: 1 Other Information That Helps Us Care for You: No Feels Safe at Home: Yes Safety Concerns: Feels Safe At This Time Assistive Devices: None Review of Systems Review of Systems: As per HPI, all other systems reviewed and negative Physical Exam Physical Exam: GENERAL: Comfortable, pleasant, slightly anxious, underweight, no respiratory distress SKIN: Normal color, warm HEENT: [place] palpebral conjunctivae, no ptosis, dry buccal mucosa NECK : Supple, no tenderness CHEST : CTA, no tenderness HEART : RRR, no obvious murmurs ABDOMEN: Some distention, minimal hypogastric tenderness EXTREMITIES : No LE swelling/tenderness, no other conspicuous deformities noted NEUROLOGIC : Coherent, no facial asymmetry, no other gross focality Results & Data Results & Data Vital Signs (Past 12 Hours) Vital Signs Temp Pulse Pulse Resp BP BP Pulse Ox 02/28/23 23:36 87 02/28/23 23:29 02/28/23 23:29 98 H 18 143/87 H 98 02/28/23 23:11 36.4 C L 103 H 18 114/88 97 O2 Del Method 02/28/23 23:36 02/28/23 23:29 Room Air 02/28/23 23:29 Room Air 02/28/23 23:11 Room Air Laboratory Results Laboratory Results WBC 14.40 K/ul (4.8-10.8) H 02/28/23 23:33 RBC 4.18 M/uL (4.20-5.40) L 02/28/23 23:33 Hgb 13.2 g/dl (12.0-16.0) 02/28/23 23: Hct 39.8 % (37.0-47.0) 02/28/23 23:33 MCV 95.2 fL (80.0-100.0) 02/28/23 23: MCH 31.6 pg (25.0-34.0) 02/28/23 23: MCHC 33.2 g/dL (32.0-36.0) 02/28/23: RDW Std Deviation 43.5 fL (36.4-46.3) 02/28/23: RDW Coeff of Bartolome 12.4 % (11.5-14.5) 02/28/23: Plt Count 253 K/uL (130-400) 02/28/23: MPV 9.5 fL (9.4-12.4) 02/28/23 23:33 Immature Gran % (Auto) 0.5 % 02/28/23 23:33 Neut % (Auto) 74.4 % 02/28/23 23:33 Lymph % (Auto) 15.6 % 02/28/23 23:33 [place] % (Auto) 8.2 % 02/28/23 23:33 Eos % (Auto) 0.9 % 02/28/23 23: Baso % (Auto) 0.4 % 02/28/23 23:33 Neut # (Auto) 10.71 K/uL (1.40-6.50) H 02/28/23 23:33 Lymph # (Auto) 2.25 K/uL (1.2-3.4) 02/28/23 23:33 [place] # (Auto) 1.18 K/uL (0.11-0.59) H 02/28/23 23:33 Eos # (Auto) 0.13 K/uL (0-0.50) 02/28/23 23:33 Baso # (Auto) 0.06 K/uL (0-0.2) 02/28/23 23: Immature Gran # (Auto) 0.07 K/uL (0.01-0.20) 02/28/23 23:33 Sodium 139 mmol/L (136-145) 02/28/23 23:33 Potassium 3.4 mmol/L (3.5-5.1) L 02/28/23 23:33 Chloride 106 mmol/L (98-107) 02/28/23 23:33 Carbon Dioxide 26 mmol/L (21-32) 02/28/23 23:33 Anion Gap 7 (3-11) 02/28/23 23:33 BUN 17 mg/dl (6-23) 02/28/23 23:33 Creatinine 0.68 mg/dl (0.6-1.2) 02/28/23 23:33 Est Cr Clr Drug Dosing 67.9 ml/min 02/28/23 23:33 Est GFR ( Amer) 114.9 ml/min 02/28/23 23:33 Est GFR (Non-Af Amer) 99.2 ml/min 02/28/23 23:33 BUN/Creatinine Ratio 25.0 (10-20) H 02/28/23 23:33 Glucose 108 mg/dl (70-99(Fasting)) H 02/28/23 23:33 Calcium 9.5 mg/dl (8.6-10.3) 02/28/23 23:33 Total Bilirubin 0.5 mg/dl (0.2-1.0) 02/28/23 23:33 AST 20 U/L (13-39) 02/28/23 23:33 ALT 27 U/L (7-52) 02/28/23 23:33 Alkaline Phosphatase 80 U/L (34-104) 02/28/23 23:33 Total Protein 7.0 gm/dl (6.0-8.3) 02/28/23 23:33 Albumin 4.5 gm/dl (3.4-5.0) 02/28/23 23:33 Globulin 2.5 gm/dl (2.5-4.0) 02/28/23 23:33 Albumin/Globulin Ratio 1.8 (0.9-2) 02/28/23 23:33 Urine Color Yellow 02/28/23 23:33 Urine Appearance Clear (Clear) 02/28/23 23:33 Urine pH 6.0 (4.5-7.5) 02/28/23 23:33 Ur Specific [place] 1.006 (1.000-1.030) 02/28/23 23:33 Urine Protein Negative (Negative) 02/28/23 23:33 Urine Glucose (UA) Negative (Negative) 02/28/23 23:33 Urine Ketones Negative (Negative) 02/28/23 23:33 Urine Blood Trace (Negative) H 02/28/23 23:33 Urine Nitrite Negative (Negative) 02/28/23 23:33 Urine Bilirubin Negative (Negative) 02/28/23 23:33 Urine Urobilinogen Negative (Negative) 02/28/23 23:33 Ur Leukocyte Esterase 1+ (Negative) H 02/28/23 23:33 Urine WBC (Auto) 0 /hpf (0-5) 02/28/23 23:33 Urine RBC (Auto) 0-4 /hpf (0-4) 02/28/23 23:33 U Hyaline Cast (Auto) 0 /lpf (0-5) 02/28/23 23:33 U Epithel Cells (Auto) 0-5 /lpf (0-5) 02/28/23 23:33 Urine Bacteria (Auto) Negative (Negative) 02/28/23 23:33 Impressions Abdomen/Pelvis CT 02/28/23 23:22 Exam(s): CT ABDOMEN + PELVIS With Contrast IV Amt: 95 ML OPTIRAY 320 EXAM: CT Abdomen and Pelvis With Intravenous Contrast CLINICAL HISTORY: Reason for exam: lower abd pain, diverticulitis hx. TECHNIQUE: Axial computed tomography images of the abdomen and pelvis with intravenous contrast. CTDI is I have always found a fire to reach somebody and I do not trust them within the first couple minutes I just hang up; and then get someone else. 7.29 mGy and DLP is 319.38 mGy-cm. Automated exposure control was utilized for the study. A dose lowering technique was utilized adhering to the principles of ALARA. CONTRAST: Patient received 95 ML OPTIRAY 320 of IV contrast COMPARISON: CT November 30, 2021 FINDINGS: Lung bases: Unremarkable. No mass. No consolidation. ABDOMEN: Liver: Unremarkable. No mass. Gallbladder and bile ducts: Cholecystectomy. No ductal dilation. Pancreas: Unremarkable. No mass. No ductal dilation. Spleen: Unremarkable. No splenomegaly. Adrenals: Unremarkable. No mass. Kidneys and ureters: Unremarkable. No solid mass. No hydronephrosis. Stomach and bowel: Diverticulosis. There is no lesion affecting a short segment of the proximal sigmoid colon consistent with diverticulitis. No obstruction. PELVIS: Appendix: No findings to suggest acute appendicitis. Bladder: Unremarkable. No mass. Reproductive: Unremarkable as visualized. ABDOMEN and PELVIS: Intraperitoneal space: Unremarkable. No free air. No significant fluid collection. Bones/joints: No acute fracture. No dislocation. Soft tissues: Unremarkable. Vasculature: Unremarkable. No abdominal aortic aneurysm. Lymph nodes: Unremarkable. No enlarged lymph nodes. IMPRESSION: Sigmoid diverticulitis. No evidence of abscess or perforation. Electronically signed by: Jarrod Peng MD 03/01/23 01:23 AM
[2023-03-01] MEDS ORDERED: KETOROLAC TROMETHAMINE 15 MG/ML VIAL IV PRN (02:31)
[2023-03-01] MEDS ORDERED: LORazepam 0.5 MG TAB PO PRN ×2 (02:31→04:25)
[2023-03-01] MEDS ORDERED: traMADol HCL 50 MG TABLET PO PRN (02:31)
[2023-03-01] MEDS ORDERED: PROMETHAZINE HCL 6.25 MG in SODIUM CHLORIDE 0.9% 50 ML IV PRN (02:31)
[2023-03-01] MEDS: PROMETHAZINE 6.25 MG/50.25 ML NSS IV ONE ×2 (03:33→03:55)
[2023-03-01] MEDS ORDERED: FLUTICASONE PROPIONATE NA SPR 16 GM BTL PRN (04:25)
[2023-03-01] MEDS ORDERED: ACETAMINOPHEN 325 MG TAB PO PRN (04:25)
[2023-03-01] MEDS ORDERED: LORATADINE 10 MG TAB PO PRN (04:27)
[2023-03-01] MEDS: HEPARIN SOD 5,000 UNIT/0.5 ML VIAL SQ SCH ×3 (06:27→19:52)
[2023-03-01] MEDS: PANTOprazole 40 MG TAB PO SCH (08:00)
[2023-03-01] MEDS: MULTIVITAMIN TAB PO SCH (08:00)
[2023-03-01 09:35] LABS: Basophils # (auto) 0.04 K/uL (0-0.2); Basophils % (auto) 0.4 %; Eosinophils # (auto) 0.08 K/uL (0-0.50); Eosinophils % (auto) 0.7 %; Hematocrit (blood only) 33.8 % (37.0-47.0); Hemoglobin 10.9 g/dl (12.0-16.0); Immature Granulocytes # (auto) 0.03 K/uL (0.01-0.20); Immature Granulocytes % (auto) 0.3 %; Lymphocytes % (auto) 12.8 %; Mean Corpuscular Hemoglobin 31.3 pg (25.0-34.0); Mean Corpuscular Hgb Conc 32.2 g/dL (32.0-36.0); Mean Corpuscular Volume 97.1 fL (80.0-100.0); Mean Platelet Volume 9.4 fL (9.4-12.4); Monocytes # (auto) 0.88 K/uL (0.11-0.59); Neutrophils # (auto) 8.54 K/uL (1.40-6.50); Neutrophils % (auto) 77.8 %; Platelet Count 214 K/uL (130-400); RDW Coefficient of Variation 12.4 % (11.5-14.5); RDW Standard Deviation 43.8 fL (36.4-46.3); Red Blood Count 3.48 M/uL (4.20-5.40); White Blood Count 10.97 K/ul (4.8-10.8)
[2023-03-01 10:02] LABS: BUN Creatinine Ratio 15.5 (10-20); Calcium 8.4 mg/dl (8.6-10.3); Creatinine Clr Calc Pharmacy 78.7 ml/min; Est GFR (African American) 121.1 ml/min; Est GFR (Non-African American) 104.5 ml/min; Potassium 3.8 mmol/L (3.5-5.1)
--- NOTE | 2023-03-01 10:31 | Gastrointestinal Consultation ---
Date of Consultation March 01, 2023 Assessment & Plan (1) Diverticulitis: Pt is a 52 yo female w symptoms of lower abd cramping, nausea wo vomiting, noted to have sigmoid diverticulitis on CT w contrast study, without perforation or abscess. Hx of L hemicolectomy in 2016 for diverticulitis. Last diverticulitis before this admission was 11/2021. She is already taking fiber daily at home. - Advance diet as tolerated - Continue Ertapenem IV - Monitor blood ct, leukocytosis - Last colonoscopy within 1 year - If 3 or more episode of diverticulitis within a year, will refer to Surgery for surgical intervention - GI to sign off; pls recall prn Supervising Physician Co-Signing Physician Notes Sleepy but arousable on my exam, agree with pe as documented Prior presumed anastomosis at 15 cm noted on last colonoscopy presumed distal resection with preserved left side/sigmoid. History of diverticulitis at the splenic flexure in 2021, current episode in the sigmoid area. If additional recurrence after this admission, consider surgical input. Given recent colonoscopy- would not repeat unless patient wants to in 6-8 weeks times. Agree with further plan of care as documented. History of Present Illness Reason for Consultation: Recurrent diverticulitis Requesting Physician: Dr. All Larose Attending Physician: Dr. Padma Gonzalez History of Present Illness Patient is a 52 years old female who presented yesterday with complaints of lower abdominal cramping and pain similar to previous diverticulitis attack. She had been seen in outpatient GI clinic last week with suspected bile acid diarrhea and weight loss. She had cholecystectomy in December 2021, since then states that her stools are always on the looser side and she has poor appetite and weight loss up to 20 pounds within the last year. She was given a trial of Questran and just started it yesterday morning. Later on during the day she started having lower abdominal cramping with some nausea but no vomiting. Denies any associated fever or chills. She eventually passed a bowel movement that is loose but without any rectal bleeding. Upon evaluation, labs showed that she has leukocytosis but mild anemia. Chemistry panel including electroly armin, kidney and liver functions are all unremarkable. CT abdomen pelvis with contrast showed signs of sigmoid diverticulitis but no abscess or perforation. Patient reports that she had a history of left hemicolectomy for diverticulitis. Since November 2021 she has had 2 episodes of diverticulitis. She has multiple antibiotic allergies and had been treated previously with ertapenem IV during her diverticulitis episode. She is currently on this antibiotic as well. Her last colonoscopy was in 2021 which showed diverticulosis entire colon. She is taking fiber on a daily basis. Denies any family history of IBD or colorectal cancer. Allergies Allergy/AdvReac Type Severity Reaction Status Date / Time metronidazole Allergy Severe Lip Verified 02/28/23 23:41 swelling, hives topiramate Allergy Severe SOB/HIVES Verified 02/28/23 23:41 amoxicillin Allergy Intermediate Rash Verified 02/28/23 23:41 ciprofloxacin Allergy Intermediate SWELLING Verified 02/28/23 23:41 clavulanic acid Allergy Intermediate RASH Verified 02/28/23 23:41 morphine Allergy Intermediate Hives Verified 02/28/23 23:41 imipenem AdvReac Intermediate Nausea Verified 02/28/23 23:41 propranolol AdvReac Intermediate Anxiety Verified 02/28/23 23:41 Home Medications Medication Instructions Recorded Confirmed Type multivitamin 1 tab PO QAM 07/15/20 02/28/23 History psyllium husk 3.4 gram/5.4 gram 1 tbsp PO HS 07/15/20 02/28/23 History oral powder (Metamucil) acetaminophen 325 mg tablet 650 mg PO QID PRN Pain 11/19/21 02/28/23 History (Tylenol) cholecalciferol (vitamin D3) 125 125 mcg PO QAM 11/19/21 02/28/23 History mcg (5,000 unit) tablet (Vitamin D3) loratadine 10 mg capsule 10 mg PO QAM PRN Congestion 01/13/22 02/28/23 History lorazepam 0.5 mg tablet 0.5 mg PO HS PRN Sleep 01/13/22 02/28/23 History Calcium Gummy 1 tab PO DAILY 10/12/22 02/28/23 History cholestyramine (with sugar) 4 gram 1 ea PO DAILY 02/28/23 02/28/23 History powder for susp in a packet clobetasol 0.05 % topical cream 1 applic topical DIRECTED PRN 02/28/23 02/28/23 History Skin Irritation estradiol 10 mcg vaginal tablet 10 mcg vaginal DIRECTED 02/28/23 02/28/23 History fluticasone propionate 50 2 spray intranasal DAILY PRN 02/28/23 02/28/23 History mcg/actuation nasal Congestion spray,suspension omeprazole 20 mg capsule,delayed 20 mg PO DAILY 02/28/23 02/28/23 History release rimegepant 75 mg disintegrating 75 mg PO DIRECTED PRN Migraine 02/28/23 02/28/23 History tablet (Nurtec ODT) Headache Patient History Medical History Anxiety Carpal tunnel syndrome Diverticular disease Diverticulitis Hearing deficit Rt HERNANDEZ History of melanoma Migraines HX Surgical History History of anesthesia reaction VERTIGO DAY ONE POST OP WITH BOWEL RESECTION History of bowel resection 2016 History of carpal tunnel release LEFT History of cholecystectomy History of colonoscopy 2005 History of D&C History of ear surgery RIGHT TYMPANOPLASTY WITH PROSTHESIS History of melanoma excision LEFT LEG/ARM History of wisdom tooth extraction Family History Grandmother (Paternal) Diabetes Other No family history of adverse response to anesthesia Social History Smoking Status: Never smoker Second Hand Exposure: No; Do You Dip or Chew Tobacco: No; Hx Alcohol Use: Yes Alcohol type: wine and hard liquor Hx Substance Use: No Preferred Language: Surinamese Communication Ability: Effective High Lift Mule Operator Required: No Beliefs That Will Affect Care: None marital status: Current Living Situation: Spouse 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 occupational status: 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 How many Children do You have: 1 Other Information That Helps Us Care for You: No Feels Safe at Home: Yes Safety Concerns: Feels Safe At This Time Assistive Devices: None Review of Systems Review of Systems: All systems reviewed & are unremarkable except as noted in HPI & below Physical Exam Constitutional: WD/WN, vitals as above well groomed, cooperative and comfortable Eyes: PERRL, conjunctivae normal, anicteric sclerae ENMT: external ear and nose normal, oropharynx normal Respiratory: normal respiratory effort, lungs clear to auscultation Cardiovascular: RRR, no murmur, no edema Gastrointestinal (Abdomen): TTP across lower abd, soft, BS present Skin: no rashes, warm and dry no jaundice Psychiatric: A+Ox3, euthymic affect Lymphatic: no lymphedema Results & Data Vital Signs (Past 12 Hours) Vital Signs Temp Pulse Pulse Pulse Resp BP BP 03/01/23 07:30 37.3 C 89 16 115/71 03/01/23 05:12 36.8 C 84 20 129/76 03/01/23 04:25 36.8 C 84 18 129/76 03/01/23 03:31 88 18 03/01/23 02:30 85 12 03/01/23 02:30 125/84 03/01/23 02:00 87 17 03/01/23 02:00 131/85 03/01/23 01:30 84 14 03/01/23 01:30 118/77 03/01/23 01:00 93 H 20 03/01/23 01:00 129/86 03/01/23 00:58 103 H 25 H 03/01/23 00:00 89 12 03/01/23 00:00 122/76 02/28/23 23:36 89 18 02/28/23 23:36 87 02/28/23 23:29 02/28/23 23:29 98 H 18 143/87 H 02/28/23 23:11 36.4 C L 103 H 18 114/88 Pulse Ox O2 Del Method 03/01/23 07:30 98 Room Air 03/01/23 05:12 99 Room Air 03/01/23 04:25 99 Room Air 03/01/23 03:31 03/01/23 02:30 97 03/01/23 02:30 03/01/23 02:00 98 03/01/23 02:00 03/01/23 01:30 97 03/01/23 01:30 03/01/23 01:00 97 03/01/23 01:00 03/01/23 00:58 03/01/23 00:00 99 03/01/23 00:00 02/28/23 23:36 98 02/28/23 23:36 02/28/23 23:29 Room Air 02/28/23 23:29 98 Room Air 02/28/23 23:11 97 Room Air
[2023-03-01] MEDS: NSS + 20MEQ KCL 20 MEQ/1,000 ML BAG IV SCH (15:37)
[2023-03-01 15:53] LABS: Adenovirus F 40/41 PCR Not Detected (NotDetected); Astrovirus PCR Not Detected (NotDetected); Campylobacter PCR Not Detected (NotDetected); Cryptosporidium PCR Not Detected (NotDetected); Cyclospora cayetanensis PCR Not Detected (NotDetected); Entamoeba histolytica PCR Not Detected (NotDetected); Enteroaggregative E.coli(EAEC) Not Detected (NotDetected); Enteropathogenic E.coli (EPEC) Not Detected (NotDetected); Enterotoxigenic E.coli (ETEC) Not Detected (NotDetected); Giardia lamblia PCR Not Detected (NotDetected); Norovirus GI/GII PCR Not Detected (NotDetected); Plesiomonas shigelloides PCR Not Detected (NotDetected); Rotavirus A PCR Not Detected (NotDetected); Salmonella PCR Not Detected (NotDetected); Sapovirus PCR Not Detected (NotDetected); Shiga-like Toxin E.coli (STEC) Not Detected (NotDetected); Shigella/Enteroinvasive E.coli Not Detected (NotDetected); Vibrio cholerae PCR Not Detected (NotDetected); Vibrio species PCR Not Detected (NotDetected); Yersinia enterocolitica PCR Not Detected (NotDetected)
[2023-03-02] MEDS ORDERED: ERTAPENEM SODIUM 1,000 MG in SYRINGE 0 ML IV SCH (03:00)
[2023-03-02] MEDS: NSS + 20MEQ KCL 20 MEQ/1,000 ML BAG IV SCH (04:41)
[2023-03-02] MEDS: HEPARIN SOD 5,000 UNIT/0.5 ML VIAL SQ SCH ×2 (05:26→14:59)
[2023-03-02] MEDS: PANTOprazole 40 MG TAB PO SCH (08:27)
[2023-03-02] MEDS: MULTIVITAMIN TAB PO SCH (08:27)
[2023-03-02 08:49] LABS: Hematocrit (blood only) 35.7 % (37.0-47.0); Hemoglobin 11.5 g/dl (12.0-16.0); Mean Corpuscular Hemoglobin 31.3 pg (25.0-34.0); Mean Corpuscular Hgb Conc 32.2 g/dL (32.0-36.0); Mean Platelet Volume 9.8 fL (9.4-12.4); Platelet Count 226 K/uL (130-400); RDW Coefficient of Variation 12.4 % (11.5-14.5); RDW Standard Deviation 44.1 fL (36.4-46.3); Red Blood Count 3.68 M/uL (4.20-5.40); White Blood Count 5.49 K/ul (4.8-10.8)
[2023-03-02 09:52] LABS: HBSAG NON-REACTIVE (NON-REACTIVE); Hepatitis A Antibody IgM NON-REACTIVE (NON-REACTIVE); Hepatitis B Core Antibody IgM NON-REACTIVE (NON-REACTIVE)
[2023-03-02 09:53] LABS: Calcium 9.1 mg/dl (8.6-10.3); Magnesium 1.9 mg/dl (1.7-2.4); Potassium 4.1 mmol/L (3.5-5.1)
[2023-03-02 09:59] LABS: BUN Creatinine Ratio 14.5 (10-20); Est GFR (African American) 123.2 ml/min; Est GFR (Non-African American) 106.3 ml/min; Phosphorus 2.6 mg/dl (2.5-4.9)
--- NOTE | 2023-03-02 15:57 | Discharge Summary ---
Date of Service March 02, 2023 Admission HPI Per Admitting Provider History obtained from patient, family, and records. Medical history significant for recurrent diverticulitis status post surgery, past history C. difficile as per records, malignant melanoma status post surgery, migraine, anxiety disorder. Last confinement October 2021 for recurrent diverticulitis. IV ertapenem course completed due to patient's multiple antibiotic allergies. Patient has had diarrhea, poor appetite since cholecystectomy last year. About 20 pound weight loss. On colonoscopy last year. Denies depression. Patient seen at [facility] office last week. Provider recommended imaging and endoscopy, stool work-up. Patient prescribed PPI in question trial. Patient had first dose of Questran yesterday morning. She later on noted achy lower abdominal pain reminiscent of diverticulitis attack. Some nausea, no vomiting. No fever, no chills. Patient brought to ER by for evaluation. IV Ertapenem administered at the ER for diverticulitis due to patient's multiple allergies. Medical History as above 2021 colonoscopy showed diverticulosis, end-to-side anastomosis at 15 cm. Ascending colon polyp. Hemorrhoids. 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 Exam Per Admitting Provider GENERAL: Comfortable, pleasant, slightly anxious, underweight, no respiratory distress SKIN: Normal color, warm HEENT: [place] palpebral conjunctivae, no ptosis, dry buccal mucosa NECK : Supple, no tenderness CHEST : CTA, no tenderness HEART : RRR, no obvious murmurs ABDOMEN: Some distention, minimal hypogastric tenderness EXTREMITIES : No LE swelling/tenderness, no other conspicuous deformities noted NEUROLOGIC : Coherent, no facial asymmetry, no other gross focality Principal Diagnosis Diverticulitis Discharge Exam Constitutional + thin; no acute distress ENMT external ear and nose normal, oropharynx normal Respiratory normal respiratory effort, lungs clear to auscultation Cardiovascular Rate/Rhythm: regular rate and regular rhythm Vessels: normal peripheral pulses Extremities: no edema Gastrointestinal (Abdomen) normal bowel sounds, soft, nontender, no hepatosplenomegaly Skin no rashes, warm and dry Neurologic no focal motor deficits Psychiatric A+Ox3, euthymic affect Discharge Data Allergies Allergy/AdvReac Type Severity Reaction Status Date / Time metronidazole Allergy Severe Lip Verified 02/28/23 23:41 swelling, hives topiramate Allergy Severe SOB/HIVES Verified 02/28/23 23:41 amoxicillin Allergy Intermediate Rash Verified 02/28/23 23:41 ciprofloxacin Allergy Intermediate SWELLING Verified 02/28/23 23:41 clavulanic acid Allergy Intermediate RASH Verified 02/28/23 23:41 morphine Allergy Intermediate Hives Verified 02/28/23 23:41 imipenem AdvReac Intermediate Nausea Verified 02/28/23 23:41 propranolol AdvReac Intermediate Anxiety Verified 02/28/23 23:41 Consultations 03/01/23 04:25 Consult Gastroenterology Routine Ordered Studies Laboratory Results WBC 5.49 K/ul (4.8-10.8) 03/02/23 08:00 RBC 3.68 M/uL (4.20-5.40) L 03/02/23 08:00 Hgb 11.5 g/dl (12.0-16.0) L 03/02/23 08:00 Hct 35.7 % (37.0-47.0) L 03/02/23 08:00 MCV 97.0 fL (80.0-100.0) 03/02/23 08:00 MCH 31.3 pg (25.0-34.0) 03/02/23 08:00 MCHC 32.2 g/dL (32.0-36.0) 03/02/23 08:00 RDW Std Deviation 44.1 fL (36.4-46.3) 03/02/23 08:00 RDW Coeff of Bartol[place] 12.4 % (11.5-14.5) 03/02/23 08:00 Plt Count 226 K/uL (130-400) 03/02/23 08:00 MPV 9.8 fL (9.4-12.4) 03/02/23 08:00 Immature Gran % (Auto) 0.3 % 03/01/23 09:13 Neut % (Auto) 77.8 % 03/01/23 09:13 Lymph % (Auto) 12.8 % 03/01/23 09:13 [place] % (Auto) 8.0 % 03/01/23 09:13 Eos % (Auto) 0.7 % 03/01/23 09:13 Baso % (Auto) 0.4 % 03/01/23 09:13 Neut # (Auto) 8.54 K/uL (1.40-6.50) H 03/01/23 09:13 Lymph # (Auto) 1.40 K/uL (1.2-3.4) 03/01/23 09:13 [place] # (Auto) 0.88 K/uL (0.11-0.59) H 03/01/23 09:13 Eos # (Auto) 0.08 K/uL (0-0.50) 03/01/23 09:13 Baso # (Auto) 0.04 K/uL (0-0.2) 03/01/23 09:13 Immature Gran # (Auto) 0.03 K/uL (0.01-0.20) 03/01/23 09:13 Sodium 139 mmol/L (136-145) 03/02/23 08:00 Potassium 4.1 mmol/L (3.5-5.1) 03/02/23 08:00 Chloride 109 mmol/L (98-107) H 03/02/23 08:00 Carbon Dioxide 27 mmol/L (21-32) 03/02/23 08:00 Anion Gap 3 (3-11) 03/02/23 08:00 BUN 8 mg/dl (6-23) 03/02/23 08:00 Creatinine 0.55 mg/dl (0.6-1.2) L 03/02/23 08:00 Est Cr Clr Drug Dosing 83.0 ml/min 03/02/23 08:00 Est GFR ( Amer) 123.2 ml/min 03/02/23 08:00 Est GFR (Non-Af Amer) 106.3 ml/min 03/02/23 08:00 BUN/Creatinine Ratio 14.5 (10-20) 03/02/23 08:00 Glucose 89 mg/dl (70-99(Fasting)) 03/02/23 08:00 Calcium 9.1 mg/dl (8.6-10.3) 03/02/23 08:00 Phosphorus 2.6 mg/dl (2.5-4.9) 03/02/23 08:00 Magnesium 1.9 mg/dl (1.7-2.4) 03/02/23 08:00 Total Bilirubin 0.5 mg/dl (0.2-1.0) 02/28/23 23:33 AST 20 U/L (13-39) 02/28/23 23:33 ALT 27 U/L (7-52) 02/28/23 23:33 Alkaline Phosphatase 80 U/L (34-104) 02/28/23 23:33 Total Protein 7.0 gm/dl (6.0-8.3) 02/28/23 23:33 Albumin 4.5 gm/dl (3.4-5.0) 02/28/23 23: Globulin 2.5 gm/dl (2.5-4.0) 02/28/23 23:33 Albumin/Globulin Ratio 1.8 (0.9-2) 02/28/23 23:33 Urine Color Yellow 02/28/23 23:33 Urine Appearance Clear (Clear) 02/28/23 23:33 Urine pH 6.0 (4.5-7.5) 02/28/23 23:33 Ur Specific [place] 1.006 (1.000-1.030) 02/28/23 23:33 Urine Protein Negative (Negative) 02/28/23 23:33 Urine Glucose (UA) Negative (Negative) 02/28/23 23:33 Urine Ketones Negative (Negative) 02/28/23 23:33 Urine Blood Trace (Negative) H 02/28/23 23:33 Urine Nitrite Negative (Negative) 02/28/23 23:33 Urine Bilirubin Negative (Negative) 02/28/23 23:33 Urine Urobilinogen Negative (Negative) 02/28/23 23:33 Ur Leukocyte Esterase 1+ (Negative) H 02/28/23 23:33 Urine WBC (Auto) 0 /hpf (0-5) 02/28/23 23:33 Urine RBC (Auto) 0-4 /hpf (0-4) 02/28/23 23:33 U Hyaline Cast (Auto) 0 /lpf (0-5) 02/28/23 23:33 U Epithel Cells (Auto) 0-5 /lpf (0-5) 02/28/23 23:33 Urine Bacteria (Auto) Negative (Negative) 02/28/23 23:33 Stl C. cayetanensis PCR Not Detected (NotDetected) 03/01/23 Unknown Stool Rotavirus A PCR Not Detected (NotDetected) 03/01/23 Unknown Stl Adenov F 40/41 PCR Not Detected (NotDetected) 03/01/23 Unknown Stool Astrovirus (PCR) Not Detected (NotDetected) 03/01/23 Unknown Stool Campylobacter PCR Not Detected (NotDetected) 03/01/23 Unknown Stl C. diff Tox B Gene TNP 03/01/23 Unknown Stool Cryptosporidium PCR Not Detected (NotDetected) 03/01/23 Unknown Stl E.coli Shiga Tox PCR Not Detected (NotDetected) 03/01/23 Unknown Stl Enterotoxigenic E PCR Not Detected (NotDetected) 03/01/23 Unknown Stool EPEC (PCR) Not Detected (NotDetected) 03/01/23 Unknown Stool EAEC (PCR) Not Detected (NotDetected) 03/01/23 Unknown Stl E. histolytica PCR Not Detected (NotDetected) 03/01/23 Unknown Stool Giardia Lamblia PCR Not Detected (NotDetected) 03/01/23 Unknown Stool Salmonella PCR Not Detected (NotDetected) 03/01/23 Unknown Stool Sapovirus (PCR) Not Detected (NotDetected) 03/01/23 Unknown Stl P. shigelloides PCR Not Detected (NotDetected) 03/01/23 Unknown Stl Shigella/EIEC PCR Not Detected (NotDetected) 03/01/[address].enterocolitica PCR Not Detected (NotDetected) 03/01/23 Unknown Stool Vibrio (PCR) Not Detected (NotDetected) 03/01/23 Unknown Stl Vibrio cholerae PCR Not Detected (NotDetected) 03/01/23 Unknown Stl Norovirus GI/GII PCR Not Detected (NotDetected) 03/01/23 Unknown Hepatitis A IgM Ab NON-REACTIVE (NON-REACTIVE) 03/01/23 12:21 Hep Bs Antigen NON-REACTIVE (NON-REACTIVE) 03/01/23 12:21 Hep Bs Ag Confirmation TNP 03/01/23 12:21 Hep B Core IgM Ab NON-REACTIVE (NON-REACTIVE) 03/01/23 12:21 Hepatitis C Ab (EIA) NON-REACTIVE (NON-REACTIVE) 03/01/23 12:21 Hep C Ab Signal/Cutoff 0.03 (<1.00) 03/01/23 12:21 SARS-CoV-2, RNA, NAAT NEGATIVE (NEGATIVE) 03/01/23 02:44 Impressions Abdomen/Pelvis CT 02/28/23 23:22 Exam(s): CT ABDOMEN + PELVIS With Contrast IV Amt: 95 ML OPTIRAY 320 EXAM: CT Abdomen and Pelvis With Intravenous Contrast CLINICAL HISTORY: Reason for exam: lower abd pain, diverticulitis hx. TECHNIQUE: Axial computed tomography images of the abdomen and pelvis with intravenous contrast. CTDI is I have always found a fire to reach somebody and I do not trust them within the first couple minutes I just hang up; and then get someone else. 7.29 mGy and DLP is 319.38 mGy-cm. Automated exposure control was utilized for the study. A dose lowering technique was utilized adhering to the principles of ALARA. CONTRAST: Patient received 95 ML OPTIRAY 320 of IV contrast COMPARISON: CT November 30, 2021 FINDINGS: Lung bases: Unremarkable. No mass. No consolidation. ABDOMEN: Liver: Unremarkable. No mass. Gallbladder and bile ducts: Cholecystectomy. No ductal dilation. Pancreas: Unremarkable. No mass. No ductal dilation. Spleen: Unremarkable. No splenomegaly. Adrenals: Unremarkable. No mass. Kidneys and ureters: Unremarkable. No solid mass. No hydronephrosis. Stomach and bowel: Diverticulosis. There is no lesion affecting a short segment of the proximal sigmoid colon consistent with diverticulitis. No obstruction. PELVIS: Appendix: No findings to suggest acute appendicitis. Bladder: Unremarkable. No mass. Reproductive: Unremarkable as visualized. ABDOMEN and PELVIS: Intraperitoneal space: Unremarkable. No free air. No significant fluid collection. Bones/joints: No acute fracture. No dislocation. Soft tissues: Unremarkable. Vasculature: Unremarkable. No abdominal aortic aneurysm. Lymph nodes: Unremarkable. No enlarged lymph nodes. IMPRESSION: Sigmoid diverticulitis. No evidence of abscess or perforation. Electronically signed by: Jarrod Peng MD 03/01/23 01:23 AM Hospital Course (1) Sigmoid diverticulitis: Presented with abdominal pain reminiscent of prior diverticulitis attacks. History of recurrent diverticulitis s/p bowel resection. CT ABD/pelvis showed sigmoid diverticulitis without evidence of abscess or perforation. Stool studies negative Started on IV ertapenem due to patient's allergy profile. IV ertapenem 1 g daily to be continued at discharge to complete a 10-day course (last dose on 03/10/2023). Midline placed. Patient will receive through [facility]. Low-fat, low fiber diet History of chronic diarrhea since cholecystectomy last year. Started on Questran recently for bile acid diarrhea. Discussed with GI, patient can resume Questran in 2 weeks. Total Time Total Time Spent Total Time Spent (In Minutes): 35 Discharge Plan Discharge Items Patient Disposition: Home - Self-Care Reason For Visit: Abdominal pain Discharge Diagnosis: Diverticulitis Activity: Per Instructions section Non-emergency contact: Primary Care Provider and New Car Make Ready Mechanic Call non-emergency contact if: you have any medication questions, your symptoms worsen, your pain is not controlled and you have a fever Follow-up/Referrals: Sheron Gracia DO [Primary Care Provider] - 03/07/23 10:20 am (Date & Time 03/07/2023 10:20 AM Provider Sheron Gracia DO Department [facility] ) Nesha Leos CRNP [Nurse Practitioner] - (Date & Time 04/03/2023 8:00 AM Provider [facility] Diet: Low Fiber and Low Fat Addtl Attending Provider Instructions: You came to the hospital for evaluation abdominal pain and was found to have diverticulitis. Due to allergies, you received antibiotic IV ertapenem and will be discharged on IV ertapenem until 03/10/23. You will receive this medication at the medical treatment unit here at the hospital, next dose on 03/03/2023. Your appointment time is 7 AM. You had a midline IV catheter placed to receive your IV antibiotic. Limit the use of this arm while IV catheter is in place. Take a probiotic daily for the next 10 days. You were given a prescription for Diflucan if needed for yeast infection. You may resume taking Questran in 2 weeks. Follow-up with PCP and GI as scheduled. It was a pleasure taking care of you. If you need to reach a member of the [facility] hospitalist team at [facility], please call [phone]. SHANKAR Kumar Pending Studies at Discharge: No Stand-Alone Forms: [facility], Smoking Cessation Medications and DC Order Prescriptions: New Probiotic 3 billion cell capsule 3,000 mmu cells PO DAILY Qty: 10 0RF Rx Instructions: administer with a meal fluconazole [Diflucan] 150 mg tablet 150 mg PO DAILY PRN (Reason: yeast infection) 2 Days Qty: 2 0RF Rx Instructions: Take 1 tablet for a single dose at the onset of vaginal yeast infection. Continued multivitamin Tablet 1 tab PO QAM Calcium Gummy 1 tab PO DAILY clobetasol 0.05 % cream 1 applic TOPICAL DIRECTED PRN (Reason: Skin Irritation) omeprazole 20 mg capsule,delayed release(DR/EC) 20 mg PO DAILY fluticasone propionate 50 mcg/actuation spray,suspension 2 spray INTRANASAL DAILY PRN (Reason: Congestion) estradiol 10 mcg tablet 10 mcg VAGINAL DIRECTED Rx Instructions: PER PT "HAVEN'T USED IN A WHILE". Nurtec ODT 75 mg tablet,disintegrating 75 mg PO DIRECTED PRN (Reason: Migraine Headache) acetaminophen [Tylenol] 325 mg Tablet 650 mg PO QID PRN (Reason: Pain) cholecalciferol (vitamin D3) [Vitamin D3] 125 mcg (5,000 unit) Tablet 125 mcg PO QAM loratadine 10 mg Capsule 10 mg PO QAM PRN (Reason: Congestion) lorazepam 0.5 mg Tablet 0.5 mg PO HS PRN (Reason: Sleep) Held Metamucil 3.4 gram/5.4 gram Powder 1 tbsp PO HS Hold Instructions: until you receive instruction from GI cholestyramine (with sugar) 4 gram powder in packet 1 ea PO DAILY Hold Instructions: Resume on 03/16/23. Discharge Orders: Discharge Order (Routine); Ordered 03/02/23 Ordered By: Edie Walker/Other Patient Handouts: Midline Catheter Dc, Diverticulosis and Dive rticulitis, Anatomy of the Digestive System Admission Data Admit Date/Time: 03/01/23 02:29 Attending Provider: All Larose Admit Provider: Pepito Begum Primary Care Provider: Sheron Gracia Other Providers: Pepito Begum ; Vivian Ahmadi ; Steve Lara ; Corrine Pierson ; Leena Bolton ; Jennifer Pedraza ; Ramila Cadet ; Preston Chadwick ; Atul Mina ; Dominguez Rainey ; Keven Scott ; Eduard Michael ; Nesha Leos ; Treva Allred ; Keyana Khan ; Padma Gonzalez ; Leigh Saeed ; Justin Gould ; Jonathon Harris ; Peri Gilliam ; Daysi Larios Jr Other Interventions: Discharge Summary Assessment (RN) Last Done: 03/02/23 16:46 Supervising Physician Co-Signing Physician Notes Patient seen and examined by me, care coordinated with SHANKAR Kumar, please refer to her note above for further detail. Patient was admitted due to recurrent diverticulitis, she is currently sitting up in bed, in no acute distress, abdominal pain much improved, and also on physical exam abdominal tenderness improved on palpation. She is able to tolerate low fiber diet. She is having bowel movements. No blood in the stool. No fevers chills, no chest pain shortness of breath. Discussed in detail IV antibiotics due to her multiple antibiotic allergies. [facility] was set up. Patient will need to follow-up with PCP and GI upon discharge. MD Thuan
--- NOTE | 2023-03-04 09:54 | Coding Query ---
MALNUTRITION To promote full compliance with coding requirements relating to patient care, physician participation is requested in all cases of glass enamel mixer uncertainty. Please assist us with the question(s) below: Please place an X within the parenthesis (x). If other, please document: "Malnutrition" is documented in this record. The H/P stated malnutrition with low BMI. Pt adm with acute sigmoid diverticulitis. If possible, please check the box that provides a more specific diagnosis: ( ) Mild malnutrition (x ) Moderate malnutrition ( ) Severe malnutrition ( ) Protein malnutrition (kwashiorkor) ( ) Severe protein calorie malnutrition ( ) Protein calorie malnutrition, unspecified ( ) Other (please specify): Was this diagnosis present on admission? Please place an X within the parenthesis (x). ( ) Present on admission ( ) Not present on admission ( ) Unable to be clinically determined Thank you MILLER Greco [facility]
== END 2023-03-02 18:08 | disposition home or self-care (01) | DRG 392 ==
LOC: ED 23:08 → 3W 03-01 02:29

== ENCOUNTER 2023-03-06 16:00 | Observation (INO) ==
[2023-03-06] MEDS ORDERED: SODIUM CHLORIDE 0.9% 1000ML 1,000 ML IV STA (16:15)
--- NOTE | 2023-03-06 16:23 | Emergency Department Note ---
ED Provider Note History of Present Illness Chief Complaint: Abdominal Pain Stated Complaint: NAUSEA, ABDOMINAL PAIN Time Seen by Provider: 03/06/23 16:04 52-year-old female, recent history of uncomplicated diverticulitis, who was admitted to our hospital for diverticulitis, and discharged on . The patient has multiple antibiotic allergies, and is currently being treated with IV ertapenem through the [facility]. The patient reports worsening left lower quadrant pain, generalized abdominal cramping, persistent nausea and fatigue. The patient did take some Zofran at 2:50 PM (15 minutes prior to arrival), and does have some relief of her nausea. Patient does report some pain radiating into the left lower back. The patient was seen by her chiropractor today without any relief of her back symptoms. Patient denies any urinary symptoms. The patient rates her discomfort a 6 out of 10. The patient has a prior history of bowel resection due to diverticulitis. She also has a prior history of C. difficile colitis. Home Medications Medication Instructions Recorded Confirmed Type multivitamin 1 tab PO QAM 07/15/20 03/06/23 History psyllium husk 3.4 gram/5.4 gram 1 tbsp PO HS 07/15/20 03/06/23 History oral powder (Metamucil) acetaminophen 325 mg tablet 650 mg PO QID PRN Pain 11/19/21 03/06/23 History (Tylenol) cholecalciferol (vitamin D3) 125 125 mcg PO QAM 11/19/21 03/06/23 History mcg (5,000 unit) tablet (Vitamin D3) loratadine 10 mg capsule 10 mg PO QAM PRN Congestion 01/13/22 03/06/23 History lorazepam 0.5 mg tablet 0.5 mg PO HS PRN Sleep 01/13/22 03/06/23 History Calcium Gummy 1 tab PO DAILY 10/12/22 03/06/23 History cholestyramine (with sugar) 4 gram 1 ea PO DAILY 02/28/23 03/06/23 History powder for susp in a packet clobetasol 0.05 % topical cream 1 applic topical DIRECTED PRN 02/28/23 03/06/23 History Skin Irritation fluticasone propionate 50 2 spray intranasal DAILY PRN 02/28/23 03/06/23 History mcg/actuation nasal Congestion spray,suspension omeprazole 20 mg capsule,delayed 20 mg PO DAILY 02/28/23 03/06/23 History release rimegepant 75 mg disintegrating 75 mg PO DIRECTED PRN Migraine 02/28/23 03/06/23 History tablet (Nurtec ODT) Headache lactobacillus combination no.4 3 3,000 mmu cells PO DAILY #10 caps 03/02/23 03/06/23 Rx billion cell capsule (Probiotic) etodolac 200 mg capsule 200 mg PO Q12H PRN pain #14 caps 03/03/23 03/06/23 Rx ondansetron 4 mg disintegrating 4 mg PO Q8H PRN nausea and 03/03/23 03/06/23 Rx tablet vomiting #30 tabs Allergies Allergy/AdvReac Type Severity Reaction Status Date / Time metronidazole Allergy Severe Lip Verified 03/06/23 17:50 swelling, hives topiramate Allergy Severe SOB/HIVES Verified 03/06/23 17:50 amoxicillin Allergy Intermediate Rash Verified 03/06/23 17:50 ciprofloxacin Allergy Intermediate SWELLING Verified 03/06/23 17:50 clavulanic acid Allergy Intermediate RASH Verified 03/06/23 17:50 morphine Allergy Intermediate Hives Verified 03/06/23 17:50 imipenem AdvReac Intermediate Nausea Verified 03/06/23 17:50 propranolol AdvReac Intermediate Anxiety Verified 03/06/23 17:50 Past Med/Surg History Medical History Anxiety Carpal tunnel syndrome Diverticular disease Diverticulitis Hearing deficit Rt HERNANDEZ History of Clostridioides difficile infection History of melanoma Migraines HX Surgical History History of anesthesia reaction VERTIGO DAY ONE POST OP WITH BOWEL RESECTION History of bowel resection 2016 History of carpal tunnel release LEFT History of cholecystectomy History of colonoscopy 2006 History of D&C History of ear surgery RIGHT TYMPANOPLASTY WITH PROSTHESIS History of melanoma excision LEFT LEG/ARM History of wisdom tooth extraction Family History Grandmother (Paternal) Diabetes Other No family history of adverse response to anesthesia Social History Smoking Status: Never smoker Second Hand Exposure: No; Do You Dip or Chew Tobacco: No; Hx Alcohol Use: Yes Alcohol type: wine and hard liquor Hx Substance Use: No Preferred Language: Romanian Communication Ability: Effective Electric[employer] Required: No Beliefs That Will Affect Care: None marital status: Current Living Situation: Spouse current occupational status: employed 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 How many Children do You have: 1 Feels Safe at Home: Yes Assistive Devices: None Physical Exam Vital Signs Vital Signs - 24 hr 03/06/23 16:00 03/06/23 16:20 03/06/23 17:53 Temperature 37.2 C Temperature Source Temporal Artery Scan Pulse Rate 103 H 102 H 95 H Respiratory Rate 20 20 Respiratory Effort / Characteristics Non-Labored Spontaneous Respiratory Depth Normal Blood Pressure 155/100 H 137/87 Blood Pressure Mean 118 103 Pulse Oximetry 97 98 Oxygen Delivery Method Room Air Room Air Sepsis Recent Fever Within 48 Hours No Sepsis New/Unexplained Change in Mental Status No Sepsis Action Taken by Nursing No Action Required 03/06/23 18:00 Temperature Temperature Source Pulse Rate 98 H Respiratory Rate 16 Respiratory Effort / Characteristics Respiratory Depth Blood Pressure 134/85 Blood Pressure Mean 101 Pulse Oximetry 99 Oxygen Delivery Method Room Air Sepsis Recent Fever Within 48 Hours Sepsis New/Unexplained Change in Mental Status Sepsis Action Taken by Nursing CONSTITUTIONAL: Healthy and well nourished. Alert and oriented X 3. Patient appears in moderate discomfort. HEENT: No scleral icterus or conjunctival injection. Mucous membranes are dry. RESPIRATORY: Clear to auscultation bilaterally with no wheezing, crackles, rhonchi or stridor. CARDIOVASCULAR: Regular rate and rhythm with no murmurs, rubs or gallops. GASTROINTESTINAL: Bowel sounds present in all quadrants. Patient has minimal left lower quadrant tenderness to palpation without rigidity, guarding or rebound. MUSCULOSKELETAL: Full range of motion of all joints without discomfort. INTEGUMENTARY: No rash or other significant dermatologic conditions noted. HEMATOLOGIC: No ecchymosis or petechiae. PSYCHIATRIC: Positive affect. NEUROLOGIC: No focal neurologic deficits noted. Course Course Patient history and physical exam were performed. Nurses notes were reviewed. Vital signs were reviewed and, showing an elevated blood pressure. The patient is mildly tachycardic. She is not febrile. I did review prior medical records, including the patient's last admission to our facility for an uncomplicated diverticulitis. She was discharged from our facility on 03/02, and has been following through [facility] for daily ertapenem 1 g IV injections. IV access was established, and labs were drawn. The patient was hydrated with a liter normal saline. She initially refused any analgesics or antiemetics. Review of labs shows a bump in the patient's lipase of 479, with no prior history of an elevated lipase. Remaining CMP does not show any transaminitis or elevated total bilirubin. CBC was normal. Repeat CT with IV contrast of the abdomen and pelvis shows an improving diverticulitis, and no evidence for pancreatitis, bowel obstruction or other concerning findings. Findings were discussed with the patient. She did request something for pain, and was administered IV Toradol. She continued to refuse any antiemetics. At this point, I discussed the case further with the patient, as well as Case Management, who [facility] They will come to evaluate the patient. Please see their dictation for further treatment and final disposition. Administered Medications Lactated Ringer's (Lr) 1,000 mls @ 150 mls/hr IV .Q6H40M LUIS Stop: 04/05/23 20:43 Last Admin: 03/06/23 20:52 Dose: 150 mls/hr Documented By: GANGA Discontinued Medications Sodium Chloride (Nss 1000ml) 1,000 mls @ 999 mls/hr IV .Q1H1M STA Stop: 03/06/23 17:15 Last Infusion: 03/06/23 17:36 Dose: 0 mls/hr Documented By: Admin: 03/06/23 16:30 Dose: 999 mls/hr Documented By: [facility] Ioversol (Optiray 320 100ml) 90 ml IV ONCE ONE Stop: 03/06/23 17:29 Last Admin: 03/06/23 17:29 Dose: 90 ml Documented By: SHARRON Ketorolac Tromethamine (Ketorolac Tromethamine 15 Mg/Ml Vial) 15 mg IV NOW STA Stop: 03/06/23 18:10 Last Admin: 03/06/23 18:14 Dose: 15 mg Documented By: [facility] Medical Decision Making Medical Records Attestation: I reviewed the patient's medical records. Home Medications was personally reviewed by me Laboratory Data Attestation: I reviewed the patient's lab results. 03/06/23 16:19 03/06/23 16:19 Lab Results 03/06/23 03/06/23 03/06/23 Range/Units 16:19 16:19 18:16 WBC 8.43 (4.8-10.8) K/ul RBC 4.02 L (4.20-5.40) M/uL Hgb 12.5 (12.0-16.0) g/dl Hct 38.9 (37.0-47.0) % MCV 96.8 (80.0-100.0) fL MCH 31.1 (25.0-34.0) pg MCHC 32.1 (32.0-36.0) g/dL RDW Std Deviation 43.1 (36.4-46.3) fL RDW Coeff of Bartolome 12.1 (11.5-14.5) % Plt Count 294 (130-400) K/uL MPV 9.8 (9.4-12.4) fL Immature Gran % (Auto) 0.2 % Neut % (Auto) 72.8 % Lymph % (Auto) 17.3 % [place] % (Auto) 7.8 % Eos % (Auto) 1.1 % Baso % (Auto) 0.8 % Neut # (Auto) 6.13 (1.40-6.50) K/uL Lymph # (Auto) 1.46 (1.2-3.4) K/uL [place] # (Auto) 0.66 H (0.11-0.59) K/uL Eos # (Auto) 0.09 (0-0.50) K/uL Baso # (Auto) 0.07 (0-0.2) K/uL Immature Gran # (Auto) 0.02 (0.01-0.20) K/uL Sodium 141 (136-145) mmol/L Potassium 3.7 (3.5-5.1) mmol/L Chloride 107 (98-107) mmol/L Carbon Dioxide 27 (21-32) mmol/L Anion Gap 7 (3-11) BUN 17 (6-23) mg/dl Creatinine 0.65 (0.6-1.2) mg/dl Est Cr Clr Drug Dosing 70.0 ml/min Est GFR ( Amer) 116.7 ml/min Est GFR (Non-Af Amer) 100.7 ml/min BUN/Creatinine Ratio 26.2 H (10-20) Glucose 102 H (70-99(Fasting)) mg/dl Calcium 9.6 (8.6-10.3) mg/dl Total Bilirubin 0.3 (0.2-1.0) mg/dl AST 22 (13-39) U/L ALT 33 (7-52) U/L Alkaline Phosphatase 88 (34-104) U/L Total Protein 6.8 (6.0-8.3) gm/dl Albumin 4.3 (3.4-5.0) gm/dl Globulin 2.5 (2.5-4.0) gm/dl Albumin/Globulin Ratio 1.7 (0.9-2) Lipase 479 H (11-82) U/L SARS-CoV-2, RNA, NAAT NEGATIVE (NEGATIVE) Imaging Data Attestation: I personally reviewed and interpreted this imaging study as follows: My Impression: My interpretation of the CT with IV contrast of the abdomen and pelvis shows improving diverticulitis without any evidence for acute pancreatitis, bowel o bstruction, free air or appendicitis. Radiologist report was also reviewed with concurrence. Radiologist's Impression: Abdomen/Pelvis CT 03/06/23 16:[address] WITH IV CONTRAST CT DOSE: 407.23 mGy.cm HISTORY: Acute left lower quadrant abdominal pain LLQ pain - worsening diverticulitis pain TECHNIQUE: Multiaxial CT images of the abdomen and pelvis were performed following the IV administration of 90 cc of Optiray, A dose lowering technique was utilized adhering to the principles of ALARA. COMPARISON STUDY: 03/01/2023 FINDINGS: Clear lung bases. Unremarkable spleen, pancreas and adrenal glands. Cholecystectomy. Unremarkable liver. Patency of the hepatic and portal veins. Unchanged appearance of the mild bilateral hydroureteronephrosis. Urinary bladder wall thickening with partial distention. Unchanged appearance of uterus and adnexa. No abdominal aortic aneurysm or lymphadenopathy. No bowel obstruction. Colonic diverticulosis. Partial sigmoidectomy with choledocho colonic anastomosis. Resolving acute sigmoid diverticulitis. No abscess or pneumoperitoneum. No CT evidence of acute appendicitis. Unremarkable soft tissues. Lumbar levoscoliosis. No acute fracture. IMPRESSION: 1. Resolving acute sigmoid diverticulitis. 2. No bowel obstruction, pneumoperitoneum or fluid collection to suggest abscess. 3. Mild bilateral hydroureteronephrosis. ACT 112: Negative or not required by law. The above report was generated using voice recognition software. It may contain grammatical, syntax or spelling errors. Electronically signed by: Drew Mcgowan M.D. 03/06/2023 5:52 PM MDM Narrative See ED Course section for further details of today's visit. The patient has had a recent history of diverticulitis, and was admitted to our facility with recent discharge and outpatient administration of IV ertapenem through our [facility]. Patient presents with worsening abdominal pain now rating into the left lower b ack region. Today's work-up shows an elevated lipase of unknown etiology. CT does not show evidence for acute pancreatitis. The patient was hydrated with normal saline in case she may be dry. She does have a mild hyponatremia as well. CT imaging also shows an improving diverticulitis. Impression Acute pancreatitis, Diverticulitis Discharge Plan Visit Data Chief Complaint: Abdominal Pain Stated Complaint: NAUSEA, ABDOMINAL PAIN ED Provider: Jeffrey Lopez ED Midlevel Provider: Young Richard Discharge Problem: Acute pancreatitis, Diverticulitis Patient Disposition: Admitted As Inpatient Discharge Instructions Interventions: ED Discharge Assessment Last Done: 03/06/23 20:32
[2023-03-06 16:56] LABS: Albumin Globulin Ratio 1.7 (0.9-2); Albumin Level 4.3 gm/dl (3.4-5.0); BUN Creatinine Ratio 26.2 (10-20); Bilirubin,Total 0.3 mg/dl (0.2-1.0); Calcium 9.6 mg/dl (8.6-10.3); Est GFR (African American) 116.7 ml/min; Est GFR (Non-African American) 100.7 ml/min; Globulin 2.5 gm/dl (2.5-4.0); Potassium 3.7 mmol/L (3.5-5.1); Total Protein 6.8 gm/dl (6.0-8.3)
[2023-03-06 17:06] LABS: Basophils # (auto) 0.07 K/uL (0-0.2); Basophils % (auto) 0.8 %; Eosinophils # (auto) 0.09 K/uL (0-0.50); Eosinophils % (auto) 1.1 %; Hematocrit (blood only) 38.9 % (37.0-47.0); Hemoglobin 12.5 g/dl (12.0-16.0); Immature Granulocytes # (auto) 0.02 K/uL (0.01-0.20); Immature Granulocytes % (auto) 0.2 %; Lymphocytes # (auto) 1.46 K/uL (1.2-3.4); Lymphocytes % (auto) 17.3 %; Mean Corpuscular Hemoglobin 31.1 pg (25.0-34.0); Mean Corpuscular Hgb Conc 32.1 g/dL (32.0-36.0); Mean Corpuscular Volume 96.8 fL (80.0-100.0); Mean Platelet Volume 9.8 fL (9.4-12.4); Monocytes # (auto) 0.66 K/uL (0.11-0.59); Monocytes % (auto) 7.8 %; Neutrophils # (auto) 6.13 K/uL (1.40-6.50); Neutrophils % (auto) 72.8 %; Platelet Count 294 K/uL (130-400); RDW Coefficient of Variation 12.1 % (11.5-14.5); RDW Standard Deviation 43.1 fL (36.4-46.3); Red Blood Count 4.02 M/uL (4.20-5.40); White Blood Count 8.43 K/ul (4.8-10.8)
[2023-03-06] MEDS ORDERED: OPTIRAY 320 100ml IV ONE (17:28)
--- NOTE | 2023-03-06 17:54 | CT Scan Report ---
ABDOMEN AND PELVIS CT WITH IV CONTRAST CT DOSE: 407.23 mGy.cm HISTORY: Acute left lower quadrant abdominal pain LLQ pain - worsening diverticulitis pain TECHNIQUE: Multiaxial CT images of the abdomen and pelvis were performed following the IV administrat ion of 90 cc of Optiray, A dose lowering technique was utilized adhering to the principles of ALARA. COMPARISON STUDY: 03/01/2023 FINDINGS: Clear lung bases. Unremarkable spleen, pancreas and adrenal glands. Cholecystectomy. Unrema rkable liver. Patency of the hepatic and portal veins. Unchanged appearance of the mild bilateral hyd roureteronephrosis. Urinary bladder wall thickening with partial distention. Unchanged appearance of uterus and adnexa. No abdominal aortic aneurysm or lymphadenopathy. No bowel obstruction. Colonic diverticulosis. Partial sigmoidectomy with choledocho colonic anastomos is. Resolving acute sigmoid diverticulitis. No abscess or pneumoperitoneum. No CT evidence of acute a ppendicitis. Unremarkable soft tissues. Lumbar levoscoliosis. No acute fracture. IMPRESSION: 1. Resolving acute sigmoid diverticulitis. 2. No bowel obstruction, pneumoperitoneum or fluid collection to suggest abscess. 3. Mild bilateral hydroureteronephrosis. ACT 112: Negative or not required by law. The above report was generated using voice recognition software. It may contain grammatical, syntax o r spelling errors. Electronically signed by: Drew Mcgowan M.D. 03/06/2023 5:52 PM
[2023-03-06] MEDS ORDERED: KETOROLAC TROMETHAMINE 15 MG/ML VIAL IV STA (18:09)
--- NOTE | 2023-03-06 20:19 | History & Physical Report ---
Date of Service March 06, 2023 Assessment & Plan (1) Abdominal pain: Plan: Admit to [facility] Patient presenting from home with reports of recurring abdominal pain after being recently admitted for acute sigmoid diverticulitis. In the ED, labs show lipase 479. No evidence of acute pancreatitis on CT scan, shows resolving acute sigmoid diverticulitis. LFTs WNL ? elevated lipase due to ongoing nausea/poor oral intake/dehydration Continue supportive care with IVF, pain and nausea control, repeat labs in AM GI consult (2) Elevated lipase: (3) Sigmoid diverticulitis: Plan: Discharged on 03/02 on IV ertapenem to complete a 10-day course. IV ertapenem use due to extensive allergy profile and history of recurring diverticulitis. Continue IV ertapenem to complete course (4) Diarrhea: Plan: Hx of chronic bilious diarrhea since cholecystectomy last year No change per patient Stool studies negative during last admission, will repeat GI recommended holding Questran for 2 weeks after diverticulitis flare DVT PROPHYLAXIS SCDs Patient seen in collaboration with Dr. Altamirano. I spent a total of 75 minutes coordinating, documenting, and providing care for this patient excluding time spent in the performance of separately billed services. This included personally reviewing all current laboratories and imaging studies, medication reconciliation, outpatient chart review, and discussion with specialists. History of Present Illness Chief Complaint: Abdominal pain Primary Care Provider: Sheron Gracia, 52-year-old female with PMH recurrent diverticulitis s/p bowel resection in 2016, anxiety, history of cholecystectomy, and other problems listed below who presents to the ED for evaluation of abdominal pain. History obtained from the patient and review of outpatient PCP and recent admission records. Patient recently admitted to [facility] 03/01 through 03/02 for acute sigmoid diverticulitis. Due to large allergy profile, patient was discharged on IV ertapenem to complete a 10-day course. Patient was seen in the ED on 03/03 for complaints of abdominal pain. Patient's lab work was unremarkable and she was discharged home. Patient reports ongoing lower cramping abdominal pain. She also reports severe nausea and poor p.o. intake. No vomiting. Reports bilious like diarrhea which has been ongoing since her cholecystectomy last year. She denies bright red bleeding per rectum and dark tarry stools. No fevers or chills. Denies chest pain or shortness of breath. No lightheadedness, dizziness, diaphoresis, syncopal events. No urinary symptoms. In the ED today, patient is hemodynamically stable. Labs are unremarkable with the exception of lipase 479. CT ABD/pelvis shows resolving acute sigmoid diverticulitis. Patient was given IVF and IV ketorolac. Allergies Allergy/AdvReac Type Severity Reaction Status Date / Time metronidazole Allergy Severe Lip Verified 03/06/23 17:50 swelling, hives topiramate Allergy Severe SOB/HIVES Verified 03/06/23 17:50 amoxicillin Allergy Intermediate Rash Verified 03/06/23 17:50 ciprofloxacin Allergy Intermediate SWELLING Verified 03/06/23 17:50 clavulanic acid Allergy Intermediate RASH Verified 03/06/23 17:50 morphine Allergy Intermediate Hives Verified 03/06/23 17:50 imipenem AdvReac Intermediate Nausea Verified 03/06/23 17:50 propranolol AdvReac Intermediate Anxiety Verified 03/06/23 17:50 Home Medications Medication Instructions Recorded Confirmed Type multivitamin 1 tab PO QAM 07/15/20 03/06/23 History psyllium husk 3.4 gram/5.4 gram 1 tbsp PO HS 07/15/20 03/06/23 History oral powder (Metamucil) acetaminophen 325 mg tablet 650 mg PO QID PRN Pain 11/19/21 03/06/23 History (Tylenol) cholecalciferol (vitamin D3) 125 125 mcg PO QAM 11/19/21 03/06/23 History mcg (5,000 unit) tablet (Vitamin D3) loratadine 10 mg capsule 10 mg PO QAM PRN Congestion 01/13/22 03/06/23 History lorazepam 0.5 mg tablet 0.5 mg PO HS PRN Sleep 01/13/22 03/06/23 History Calcium Gummy 1 tab PO DAILY 10/12/22 03/06/23 History cholestyramine (with sugar) 4 gram 1 ea PO DAILY 02/28/23 03/06/23 History powder for susp in a packet clobetasol 0.05 % topical cream 1 applic topical DIRECTED PRN 02/28/23 03/06/23 History Skin Irritation fluticasone propionate 50 2 spray intranasal DAILY PRN 02/28/23 03/06/23 History mcg/actuation nasal Congestion spray,suspension omeprazole 20 mg capsule,delayed 20 mg PO DAILY 02/28/23 03/06/23 History release rimegepant 75 mg disintegrating 75 mg PO DIRECTED PRN Migraine 02/28/23 03/06/23 History tablet (Nurtec ODT) Headache lactobacillus combination no.4 3 3,000 mmu cells PO DAILY #10 caps 03/02/23 03/06/23 Rx billion cell capsule (Probiotic) etodolac 200 mg capsule 200 mg PO Q12H PRN pain #14 caps 03/03/23 03/06/23 Rx ondansetron 4 mg disintegrating 4 mg PO Q8H PRN nausea and 03/03/23 03/06/23 Rx tablet vomiting #30 tabs Past Med/Surg History Medical History Anxiety Carpal tunnel syndrome Diverticular disease Diverticulitis Hearing deficit Rt HERNANDEZ History of Clostridioides difficile infection History of melanoma Migraines HX Surgical History History of anesthesia reaction VERTIGO DAY ONE POST OP WITH BOWEL RESECTION History of bowel resection 2016 History of carpal tunnel release LEFT History of cholecystectomy History of colonoscopy 2005 History of D&C History of ear surgery RIGHT TYMPANOPLASTY WITH PROSTHESIS History of melanoma excision LEFT LEG/ARM History of wisdom tooth extraction Family History Grandmother (Paternal) Diabetes Other No family history of adverse response to anesthesia Social History Smoking Status: Never smoker Second Hand Exposure: No; Do You Dip or Chew Tobacco: No; Hx Alcohol Use: Yes Alcohol type: wine and hard liquor Hx Substance Use: No Preferred Language: [place] Communication Ability: Effective Cook Helper Dessert Required: No Beliefs That Will Affect Care: None marital status: Current Living Situation: Spouse current occupational status: employed 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 How many Children do You have: 1 Feels Safe at Home: Yes Assistive Devices: None Review of Systems Review of Systems: ROS per HPI, all other systems reviewed and negative Physical Exam Constitutional: WD/WN, vitals as above Eyes: PERRL, conjunctivae normal, anicteric sclerae ENMT: external ear and nose normal, oropharynx normal Respiratory: normal respiratory effort, lungs clear to auscultation Cardiovascular: Rate/Rhythm: regular rate and regular rhythm Vessels: normal peripheral pulses Extremities: no edema Gastrointestinal (Abdomen): normal bowel sounds, soft, nontender, no hepatosplenomegaly Musculoskeletal: no cyanosis or clubbing, extremities motor strength 5/5 Skin: no rashes, warm and dry Neurologic: PERRL, EOMI, accommodation nl, no face palsy, no dysarthria Psychiatric: A+Ox3, euthymic affect Results & Data Results & Data Vital Signs (Past 12 Hours) Vital Signs Temp Pulse Resp BP Pulse Ox O2 Del Method 03/06/23 19:00 84 17 127/83 96 03/06/23 18:00 98 H 16 134/85 99 Room Air 03/06/23 17:53 95 H 20 137/87 98 Room Air 03/06/23 16:20 102 H 03/06/23 16:00 37.2 C 103 H 20 155/100 H 97 Room Air Laboratory Results Short CBC 03/06/23 Range/Units 16:19 WBC 8.43 (4.8-10.8) K/ul Hgb 12.5 (12.0-16.0) g/dl Hct 38.9 (37.0-47.0) % Plt Count 294 (130-400) K/uL BMP 03/06/23 16:19 Sodium 141 Potassium 3.7 Chloride 107 Carbon Dioxide 27 BUN 17 Creatinine 0.65 Glucose 102 H Calcium 9.6 Liver Function 03/06/23 Range/Units 16:19 Total Bilirubin 0.3 (0.2-1.0) mg/dl AST 22 (13-39) U/L ALT 33 (7-52) U/L Alkaline Phosphatase 88 (34-104) U/L Albumin 4.3 (3.4-5.0) gm/dl Diagnostic Findings Abdomen/Pelvis CT 03/06/23 16:[address] WITH IV CONTRAST CT DOSE: 407.23 mGy.cm HISTORY: Acute left lower quadrant abdominal pain LLQ pain - worsening diverticulitis pain TECHNIQUE: Multiaxial CT images of the abdomen and pelvis were performed following the IV administration of 90 cc of Optiray, A dose lowering technique was utilized adhering to the principles of ALARA. COMPARISON STUDY: 03/01/2023 FINDINGS: Clear lung bases. Unremarkable spleen, pancreas and adrenal glands. Cholecystectomy. Unremarkable liver. Patency of the hepatic and portal veins. Unchanged appearance of the mild bilateral hydroureteronephrosis. Urinary bladder wall thickening with partial distention. Unchanged appearance of uterus and adnexa. No abdominal aortic aneurysm or lymphadenopathy. No bowel obstruction. Colonic diverticulosis. Partial sigmoidectomy with choledocho colonic anastomosis. Resolving acute sigmoid diverticulitis. No abscess or pneumoperitoneum. No CT evidence of acute appendicitis. Unremarkable soft tissues. Lumbar levoscoliosis. No acute fracture. IMPRESSION: 1. Resolving acute sigmoid diverticulitis. 2. No bowel obstruction, pneumoperitoneum or fluid collection to suggest abscess. 3. Mild bilateral hydroureteronephrosis. ACT 112: Negative or not required by law. The above report was generated using voice recognition software. It may contain grammatical, syntax or spelling errors. Electronically signed by: Drew Mcgowan M.D. 03/06/2023 5:52 PM Supervising Physician Co-Signing Physician Notes I have seen and examined the patient and have discussed the case with the provider above. I agree with the assessment and plan as stated with the following exceptions. 52-year-old female with chronic diarrhea presents with crampy abdominal pain. She was recently admitted for acute diverticulitis as noted above and discharged on daily IV ertapenem. She reports feeling better on day of discharge and tolerating the antibiotic without issue until the last couple of days. Today she reports worsening abdominal cramping that was generalized but in the upper abdomen along with dry heaving. She denies any hematemesis. She denies any blood per rectum. As noted diarrhea is chronic status postcholecystectomy. She has had recurrent diverticulitis historically and is seen by [facility] gastroenterology. She is underweight with a BMI of 17 and has reportedly lost 20 pounds since 2020. She takes omeprazole, Questran regularly. After Zofran and Toradol given in the ER, she reports no further nausea and is reporting some hunger. She does report poor p.o. intake over the last couple of days. Physical exam reveals a thin female in no acute distress. Abdomen is soft nontender nondistended. Cardiopulmonary exam is within normal limits. No gross focal neurologic deficits. Skin is warm and dry. Work-up includes a CBC within normal limits with no evidence of leukocytosis. CHEM panel is normal, lipase is elevated at 479 in the setting of dry heaving. A repeat CT of the abdomen pelvis with IV contrast reveals a resolving acute direct sigmoid diverticulitis with no bowel obstruction no pneumoperitoneum or fluid collection to suggest abscess. Overall she is a 52-year-old female with crampy abdominal pain after treatment for sigmoid diverticulitis with ongoing daily ertapenem. Abdominal pain may be secondary to side effect from the antibiotic in the setting of chronic diarrhea, resolving inflammation in the sigmoid colon, or other issue. It appears her pain is now resolved after treatment in the ER and she is hungry. We will continue to monitor and give supportive care overnight. Continue ertapenem as scheduled until Monday. However, if patient continues to have abdominal cramping after her morning dose of ertapenem, consider discontinuation of antibiotics. DO Adarsh (1) Abdominal pain Abdominal location: unspecified location Qualified Code(s): R10.9 - Unspecified abdominal pain
[2023-03-06] MEDS ORDERED: ACETAMINOPHEN 325 MG TAB PO PRN (20:44)
[2023-03-06] MEDS ORDERED: KETOROLAC TROMETHAMINE 15 MG/ML VIAL IV PRN (20:44)
[2023-03-06] MEDS ORDERED: ONDANSETRON INJ 2 MG/ML 2 ML VIAL IV PRN (20:44)
[2023-03-06] MEDS: LACTATED RINGER'S 1,000 ML IV SCH (20:52)
[2023-03-06] MEDS: LORazepam 0.5 MG TAB PO PRN (21:56)
[2023-03-07 02:32] LABS: Appearance Urine Clear (Clear); Bilirubin Urine Negative (Negative); Blood Urine Negative (Negative); Color Urine Yellow; Glucose Urine UA Negative (Negative); Ketones Urine Negative (Negative); Leukocyte Esterase Urine Negative (Negative); Nitrite Urine Negative (Negative); Protein Urine Negative (Negative); Specific Gravity Urine 1.044 (1.000-1.030); Urobilinogen Urine Negative (Negative); pH Urine 7.5 (4.5-7.5)
[2023-03-07] MEDS: LACTATED RINGER'S 1,000 ML IV SCH ×3 (03:51→17:25)
[2023-03-07 06:49] LABS: Hematocrit (blood only) 32.5 % (37.0-47.0); Hemoglobin 10.6 g/dl (12.0-16.0); Mean Corpuscular Hemoglobin 31.1 pg (25.0-34.0); Mean Corpuscular Hgb Conc 32.6 g/dL (32.0-36.0); Mean Corpuscular Volume 95.3 fL (80.0-100.0); Mean Platelet Volume 9.3 fL (9.4-12.4); Platelet Count 231 K/uL (130-400); RDW Coefficient of Variation 12.2 % (11.5-14.5); RDW Standard Deviation 42.2 fL (36.4-46.3); Red Blood Count 3.41 M/uL (4.20-5.40); White Blood Count 5.96 K/ul (4.8-10.8)
[2023-03-07 07:11] LABS: Albumin Globulin Ratio 1.8 (0.9-2); Albumin Level 3.5 gm/dl (3.4-5.0); BUN Creatinine Ratio 16.4 (10-20); Bilirubin,Total 0.4 mg/dl (0.2-1.0); Calcium 8.7 mg/dl (8.6-10.3); Creatinine Clr Calc Pharmacy 82.1 ml/min; Est GFR (African American) 123.2 ml/min; Est GFR (Non-African American) 106.3 ml/min; Potassium 3.9 mmol/L (3.5-5.1); Total Protein 5.5 gm/dl (6.0-8.3)
[2023-03-07 08:03] LABS: Adenovirus F 40/41 PCR Not Detected (NotDetected); Astrovirus PCR Not Detected (NotDetected); Campylobacter PCR Not Detected (NotDetected); Cryptosporidium PCR Not Detected (NotDetected); Cyclospora cayetanensis PCR Not Detected (NotDetected); Entamoeba histolytica PCR Not Detected (NotDetected); Enteroaggregative E.coli(EAEC) Not Detected (NotDetected); Enteropathogenic E.coli (EPEC) Not Detected (NotDetected); Enterotoxigenic E.coli (ETEC) Not Detected (NotDetected); Giardia lamblia PCR Not Detected (NotDetected); Norovirus GI/GII PCR Not Detected (NotDetected); Plesiomonas shigelloides PCR Not Detected (NotDetected); Rotavirus A PCR Not Detected (NotDetected); Salmonella PCR Not Detected (NotDetected); Sapovirus PCR Not Detected (NotDetected); Shiga-like Toxin E.coli (STEC) Not Detected (NotDetected); Shigella/Enteroinvasive E.coli Not Detected (NotDetected); Vibrio cholerae PCR Not Detected (NotDetected); Vibrio species PCR Not Detected (NotDetected); Yersinia enterocolitica PCR Not Detected (NotDetected)
[2023-03-07] MEDS ORDERED: ERTAPENEM SODIUM 1,000 MG in SYRINGE 0 ML IV SCH (09:00)
--- NOTE | 2023-03-07 09:09 | Gastrointestinal Consultation ---
Date of Consultation March 07, 2023 Assessment & Plan (1) Elevated lipase: 52 year old female admitted with abd pain, nausea following IV ABX for treatment of diverticulitis. On admission, CTAP without any acute findings, improving known diverticulitis without any other pathology identified. Her lipase this AM has returned to normal. For persistent symptoms, consider OP EUS History of diverticulitis - numerous ABX allergies - not tolerating ertapenem - No abscess, fluid collection or perforation on intial CT - Updated imaging showing improvement of diverticulitis - Would continue holding future doses of ertapenemas she is on day 8 of ABX therapy - Low residue diet for now --> then advance to high fiber over the next 2-4 weeks Thank you for allowing us to participate in the care of this patient. Please call with any acute changes, questions or concerns. Please see addendum below with additional recommendation from my supervising physician. Supervising Physician Co-Signing Physician Notes Attending attestation I have seen, examined this patient, and agree with the findings and above by our mid-level provider SHANKAR Ibanez, with the following additions: Pain totally resolved ? Possible mild pancreatitis Eating solid foods Ok for d/c to home and d/c of abx History of Present Illness Reason for Consultation: abd pain Requesting Physician: Thuan Attending Physician: All Larose MD History of Present Illness 52 year old female with history of left hemicolectomy in 2015 for diverticulitis, s/p CCY in 2021 for gallbladder polyps and recent admission 03/01 for diverticulitis, discharged on IV Ertapenem admitted through the ED with abd pain. GI was asked to evaluate. She notes that her lower abd pain which she associated with diverticulitis episode resolved. Monday, when she was getting her IV ABX she felt nauseated and had mid/upper abd pain/cramping. There was no vomiting but did feel quite close. Reports she has a semi-formed BM in the morning followed by 1-2 looser stools but no report of black or bloody stools. Lipase 479 --> 34 LFTs normal CTAP 2022:Unremarkable spleen, pancreas and adrenal glands. Cholecystectomy Resolving acute sigmoid diverticulitis. No bowel obstruction, pneumoperitoneum or fluid collection to suggest abscess.Mild bilateral hydroureteronephrosis. CTAP 2022: sigmoid diverticulitis. No evidence of abscess or perforation. Allergies Allergy/AdvReac Type Severity Reaction Status Date / Time metronidazole Allergy Severe Lip Verified 03/06/23 17:50 swelling, hives topiramate Allergy Severe SOB/HIVES Verified 03/06/23 17:50 amoxicillin Allergy Intermediate Rash Verified 03/06/23 17:50 ciprofloxacin Allergy Intermediate SWELLING Verified 03/06/23 17:50 clavulanic acid Allergy Intermediate RASH Verified 03/06/23 17:50 morphine Allergy Intermediate Hives Verified 03/06/23 17:50 imipenem AdvReac Intermediate Nausea Verified 03/06/23 17:50 propranolol AdvReac Intermediate Anxiety Verified 03/06/23 17:50 Home Medications Medication Instructions Recorded Confirmed Type multivitamin 1 tab PO QAM 07/15/20 03/06/23 History psyllium husk 3.4 gram/5.4 gram 1 tbsp PO HS 07/15/20 03/06/23 History oral powder (Metamucil) acetaminophen 325 mg tablet 650 mg PO QID PRN Pain 11/19/21 03/06/23 History (Tylenol) cholecalciferol (vitamin D3) 125 125 mcg PO QAM 11/19/21 03/06/23 History mcg (5,000 unit) tablet (Vitamin D3) loratadine 10 mg capsule 10 mg PO QAM PRN Congestion 01/13/22 03/06/23 History lorazepam 0.5 mg tablet 0.5 mg PO HS PRN Sleep 01/13/22 03/06/23 History Calcium Gummy 1 tab PO DAILY 10/12/22 03/06/23 History cholestyramine (with sugar) 4 gram 1 ea PO DAILY 02/28/23 03/06/23 History powder for susp in a packet clobetasol 0.05 % topical cream 1 applic topical DIRECTED PRN 02/28/23 03/06/23 History Skin Irritation fluticasone propionate 50 2 spray intranasal DAILY PRN 02/28/23 03/06/23 History mcg/actuation nasal Congestion spray,suspension omeprazole 20 mg capsule,delayed 20 mg PO DAILY 02/28/23 03/06/23 History release rimegepant 75 mg disintegrating 75 mg PO DIRECTED PRN Migraine 02/28/23 03/06/23 History tablet (Nurtec ODT) Headache lactobacillus combination no.4 3 3,000 mmu cells PO DAILY #10 caps 03/02/23 03/06/23 Rx billion cell capsule (Probiotic) etodolac 200 mg capsule 200 mg PO Q12H PRN pain #14 caps 03/03/23 03/06/23 Rx ondansetron 4 mg disintegrating 4 mg PO Q8H PRN nausea and 03/03/23 03/06/23 Rx tablet vomiting #30 tabs Patient History Medical History Anxiety Carpal tunnel syndrome Diverticular disease Diverticulitis Hearing deficit Rt HERNANDEZ History of Clostridioides difficile infection History of melanoma Migraines HX Surgical History History of anesthesia reaction VERTIGO DAY ONE POST OP WITH BOWEL RESECTION History of bowel resection 2016 History of carpal tunnel release LEFT History of cholecystectomy History of colonoscopy 2005 History of D&C History of ear surgery RIGHT TYMPANOPLASTY WITH PROSTHESIS History of melanoma excision LEFT LEG/ARM History of wisdom tooth extraction Family History Grandmother (Paternal) Diabetes Other No family history of adverse response to anesthesia Social History Smoking Status: Never smoker Second Hand Exposure: No; Do You Dip or Chew Tobacco: No; Hx Alcohol Use: No Hx Substance Use: No Preferred Language: Divehi Communication Ability: Effective Forest Products Gat[employer]r Required: No Beliefs That Will Affect Care: None marital status: Current Living Situation: Spouse current occupational status: employed 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 How many Children do You have: 1 Other Information That Helps Us Care for You: No Feels Safe at Home: Yes Safety Concerns: Feels Safe At This Time Assistive Devices: None Review of Systems Review of Systems: All systems reviewed & are unremarkable except as noted in HPI & below Physical Exam Constitutional: WD/WN, vitals as above Respiratory: normal respiratory effort, lungs clear to auscultation Cardiovascular: Rate/Rhythm: regular rate and regular rhythm Gastrointestinal (Abdomen): normal bowel sounds, soft, nontender, no hepatosplenomegaly Skin: no rashes, warm and dry Results & Data Vital Signs (Past 12 Hours) Vital Signs Temp Pulse Resp BP Pulse Ox O2 Del Method 03/07/23 07:31 36.8 C 74 16 112/73 97 Room Air Laboratory Results 03/07/23 03/07/23 03/07/23 Range/Units 06:22 06:22 06:05 WBC (4.8-10.8) K/ul RBC (4.20-5.40) M/uL Hgb (12.0-16.0) g/dl Hct (37.0-47.0) % MCV (80.0-100.0) fL MCH (25.0-34.0) pg MCHC (32.0-36.0) g/dL RDW Std Deviation (36.4-46.3) fL RDW Coeff of Bartolome (11.5-14.5) % Plt Count (130-400) K/uL MPV (9.4-12.4) fL Immature Gran % (Auto) % Neut % (Auto) % Lymph % (Auto) % [place] % (Auto) % Eos % (Auto) % Baso % (Auto) % Neut # (Auto) (1.40-6.50) K/uL Lymph # (Auto) (1.2-3.4) K/uL [place] # (Auto) (0.11-0.59) K/uL Eos # (Auto) (0-0.50) K/uL Baso # (Auto) (0-0.2) K/uL Immature Gran # (Auto) (0.01-0.20) K/uL Sodium 142 (136-145) mmol/L Potassium 3.9 (3.5-5.1) mmol/L Chloride 111 H (98-107) mmol/L Carbon Dioxide 27 (21-32) mmol/L Anion Gap 4 (3-11) BUN 9 (6-23) mg/dl Creatinine 0.55 L (0.6-1.2) mg/dl Est Cr Clr Drug Dosing 82.1 ml/min Est GFR ( Amer) 123.2 ml/min Est GFR (Non-Af Amer) 106.3 ml/min BUN/Creatinine Ratio 16.4 (10-20) Glucose 88 (70-99(Fasting)) mg/dl Calcium 8.7 (8.6-10.3) mg/dl Total Bilirubin 0.4 (0.2-1.0) mg/dl AST 24 (13-39) U/L ALT 30 (7-52) U/L Alkaline Phosphatase 73 (34-104) U/L Total Protein 5.5 L (6.0-8.3) gm/dl Albumin 3.5 (3.4-5.0) gm/dl Globulin 2.0 L (2.5-4.0) gm/dl Albumin/Globulin Ratio 1.8 (0.9-2) Lipase 34 (11-82) U/L Urine Color Urine Appearance (Clear) Urine pH (4.5-7.5) Ur Specific [place] (1.000-1.030) Urine Protein (Negative) Urine Glucose (UA) (Negative) Urine Ketones (Negative) Urine Blood (Negative) Urine Nitrite (Negative) Urine Bilirubin (Negative) Urine Urobilinogen (Negative) Ur Leukocyte Esterase (Negative) Stl C. cayetanensis PCR Not Detected (NotDetected) Stool Rotavirus A PCR Not Detected (NotDetected) Stl Adenov F 40/41 PCR Not Detected (NotDetected) Stool Astrovirus (PCR) Not Detected (NotDetected) Stool Campylobacter PCR Not Detected (NotDetected) Stl C. diff Tox B Gene Negative Cdiff Gene (Neg) Stool Cryptosporidium PCR Not Detected (NotDetected) Stl E.coli Shiga Tox PCR Not Detected (NotDetected) Stl Enterotoxigenic E PCR Not Detected (NotDetected) Stool EPEC (PCR) Not Detected (NotDetected) Stool EAEC (PCR) Not Detected (NotDetected) Stl E. histolytica PCR Not Detected (NotDetected) Stool Giardia Lamblia PCR Not Detected (NotDetected) Stool Salmonella PCR Not Detected (NotDetected) Stool Sapovirus (PCR) Not Detected (NotDetected) Stl P. shigelloides PCR Not Detected (NotDetected) Stl Shigella/EIEC PCR Not Detected (NotDetected) St Y.enterocolitica PCR Not Detected (NotDetected) Stool Vibrio (PCR) Not Detected (NotDetected) Stl Vibrio cholerae PCR Not Detected (NotDetected) Stl Norovirus GI/GII PCR Not Detected (NotDetected) SARS-CoV-2, RNA, NAAT (NEGATIVE) 03/07/23 03/07/23 03/06/23 Range/Units 06:05 02:20 18:16 WBC 5.96 (4.8-10.8) K/ul RBC 3.41 L (4.20-5.40) M/uL Hgb 10.6 L (12.0-16.0) g/dl Hct 32.5 L (37.0-47.0) % MCV 95.3 (80.0-100.0) fL MCH 31.1 (25.0-34.0) pg MCHC 32.6 (32.0-36.0) g/dL RDW Std Deviation 42.2 (36.4-46.3) fL RDW Coeff of Bartolome 12.2 (11.5-14.5) % Plt Count 231 (130-400) K/uL MPV 9.3 L (9.4-12.4) fL Immature Gran % (Auto) % Neut % (Auto) % Lymph % (Auto) % [place] % (Auto) % Eos % (Auto) % Baso % (Auto) % Neut # (Auto) (1.40-6.50) K/uL Lymph # (Auto) (1.2-3.4) K/uL [place] # (Auto) (0.11-0.59) K/uL Eos # (Auto) (0-0.50) K/uL Baso # (Auto) (0-0.2) K/uL Immature Gran # (Auto) (0.01-0.20) K/uL Sodium (136-145) mmol/L Potassium (3.5-5.1) mmol/L Chloride (98-107) mmol/L Carbon Dioxide (21-32) mmol/L Anion Gap (3-11) BUN (6-23) mg/dl Creatinine (0.6-1.2) mg/dl Est Cr Clr Drug Dosing ml/min Est GFR ( Amer) ml/min Est GFR (Non-Af Amer) ml/min BUN/Creatinine Ratio (10-20) Glucose (70-99(Fasting)) mg/dl Calcium (8.6-10.3) mg/dl Total Bilirubin (0.2-1.0) mg/dl AST (13-39) U/L ALT (7-52) U/L Alkaline Phosphatase (34-104) U/L Total Protein (6.0-8.3) gm/dl Albumin (3.4-5.0) gm/dl Globulin (2.5-4.0) gm/dl Albumin/Globulin Ratio (0.9-2) Lipase (11-82) U/L Urine Color Yellow Urine Appearance Clear (Clear) Urine pH 7.5 (4.5-7.5) Ur Specific [place] 1.044 H (1.000-1.030) Urine Protein Negative (Negative) Urine Glucose (UA) Negative (Negative) Urine Ketones Negative (Negative) Urine Blood Negative (Negative) Urine Nitrite Negative (Negative) Urine Bilirubin Negative (Negative) Urine Urobilinogen Negative (Negative) Ur Leukocyte Esterase Negative (Negative) Stl C. cayetanensis PCR (NotDetected) Stool Rotavirus A PCR (NotDetected) Stl Adenov F 40/41 PCR (NotDetected) Stool Astrovirus (PCR) (NotDetected) Stool Campylobacter PCR (NotDetected) Stl C. diff Tox B Gene (Neg) Stool Cryptosporidium PCR (NotDetected) Stl E.coli Shiga Tox PCR (NotDetected) Stl Enterotoxigenic E PCR (NotDetected) Stool EPEC (PCR) (NotDetected) Stool EAEC (PCR) (NotDetected) Stl E. histolytica PCR (NotDetected) Stool Giardia Lamblia PCR (NotDetected) Stool Salmonella PCR (NotDetected) Stool Sapovirus (PCR) (NotDetected) Stl P. shigelloides PCR (NotDetected) Stl Shigella/EIEC PCR (NotDetected) St Y.enterocolitica PCR (NotDetected) Stool Vibrio (PCR) (NotDetected) Stl Vibrio cholerae PCR (NotDetected) Stl Norovirus GI/GII PCR (NotDetected) SARS-CoV-2, RNA, NAAT NEGATIVE (NEGATIVE) 03/06/23 03/06/23 Range/Units 16:19 16:19 WBC 8.43 (4.8-10.8) K/ul RBC 4.02 L (4.20-5.40) M/uL Hgb 12.5 (12.0-16.0) g/dl Hct 38.9 (37.0-47.0) % MCV 96.8 (80.0-100.0) fL MCH 31.1 (25.0-34.0) pg MCHC 32.1 (32.0-36.0) g/dL RDW Std Deviation 43.1 (36.4-46.3) fL RDW Coeff of Bartolome 12.1 (11.5-14.5) % Plt Count 294 (130-400) K/uL MPV 9.8 (9.4-12.4) fL Immature Gran % (Auto) 0.2 % Neut % (Auto) 72.8 % Lymph % (Auto) 17.3 % [place] % (Auto) 7.8 % Eos % (Auto) 1.1 % Baso % (Auto) 0.8 % Neut # (Auto) 6.13 (1.40-6.50) K/uL Lymph # (Auto) 1.46 (1.2-3.4) K/uL [place] # (Auto) 0.66 H (0.11-0.59) K/uL Eos # (Auto) 0.09 (0-0.50) K/uL Baso # (Auto) 0.07 (0-0.2) K/uL Immature Gran # (Auto) 0.02 (0.01-0.20) K/uL Sodium 141 (136-145) mmol/L Potassium 3.7 (3.5-5.1) mmol/L Chloride 107 (98-107) mmol/L Carbon Dioxide 27 (21-32) mmol/L Anion Gap 7 (3-11) BUN 17 (6-23) mg/dl Creatinine 0.65 (0.6-1.2) mg/dl Est Cr Clr Drug Dosing 70.0 ml/min Est GFR ( Amer) 116.7 ml/min Est GFR (Non-Af Amer) 100.7 ml/min BUN/Creatinine Ratio 26.2 H (10-20) Glucose 102 H (70-99(Fasting)) mg/dl Calcium 9.6 (8.6-10.3) mg/dl Total Bilirubin 0.3 (0.2-1.0) mg/dl AST 22 (13-39) U/L ALT 33 (7-52) U/L Alkaline Phosphatase 88 (34-104) U/L Total Protein 6.8 (6.0-8.3) gm/dl Albumin 4.3 (3.4-5.0) gm/dl Globulin 2.5 (2.5-4.0) gm/dl Albumin/Globulin Ratio 1.7 (0.9-2) Lipase 479 H (11-82) U/L Urine Color Urine Appearance (Clear) Urine pH (4.5-7.5) Ur Specific [place] (1.000-1.030) Urine Protein (Negative) Urine Glucose (UA) (Negative) Urine Ketones (Negative) Urine Blood (Negative) Urine Nitrite (Negative) Urine Bilirubin (Negative) Urine Urobilinogen (Negative) Ur Leukocyte Esterase (Negative) Stl C. cayetanensis PCR (NotDetected) Stool Rotavirus A PCR (NotDetected) Stl Adenov F 40/41 PCR (NotDetected) Stool Astrovirus (PCR) (NotDetected) Stool Campylobacter PCR (NotDetected) Stl C. diff Tox B Gene (Neg) Stool Cryptosporidium PCR (NotDetected) Stl E.coli Shiga Tox PCR (NotDetected) Stl Enterotoxigenic E PCR (NotDetected) Stool EPEC (PCR) (NotDetected) Stool EAEC (PCR) (NotDetected) Stl E. histolytica PCR (NotDetected) Stool Giardia Lamblia PCR (NotDetected) Stool Salmonella PCR (NotDetected) Stool Sapovirus (PCR) (NotDetected) Stl P. shigelloides PCR (NotDetected) Stl Shigella/EIEC PCR (NotDetected) St Y.enterocolitica PCR (NotDetected) Stool Vibrio (PCR) (NotDetected) Stl Vibrio cholerae PCR (NotDetected) Stl Norovirus GI/GII PCR (NotDetected) SARS-CoV-2, RNA, NAAT (NEGATIVE)
[2023-03-07] MEDS: ADVANCED PROBIOTIC 1250 MG CAPSULE PO SCH (09:16)
[2023-03-07] MEDS: PANTOprazole 40 MG TAB PO SCH (09:16)
--- NOTE | 2023-03-07 13:08 | Hospitalist Progress Note ---
Date of Service March 07, 2023 Assessment & Plan (1) Abdominal pain: Plan: This is a 52-year-old female with significant past medical history of C. difficile, malignant melanoma status postsurgery, migraine, anxiety disorder and recurrent diverticulitis who presented to ED on 03/06 secondary to abdominal pain. Of significance patient recently hospitalized 03/01 to 03/02 secondary to recurrent diverticulitis. She was discharged on IV ertapenem which she has been receiving daily at [facility]. CT abdomen pelvis shows resolving acute sigmoid diverticulitis but otherwise no acute abnormality. Initial lipase was 479 which has since normalized. Pain has since resolved. She is on clear liquid diet and requesting to advance. She is wondering if symptoms are related to IV ertapenem. Patient admitted to medical Seen and evaluated by gastroenterology who recommends discontinuing IV antibiotics and feels her current course is sufficient We will discontinue antibiotics advance to low fiber diet and monitor off antibiotic (2) Elevated lipase: (3) Sigmoid diverticulitis: Plan: Discharged on 03/02 on IV ertapenem to complete a 10-day course. IV ertapenem use due to extensive allergy profile and history of recurring diverticulitis. 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 Larose A total of 35 was spent coordinating, documenting, and providing care for this patient excluding time spent in the performance of separately billed services. This included personally viewing all current laboratories and imaging studies, medication reconciliation, outpatient chart review, and discussion with specialists. Admission and Anticipated Discharge Date Admission Date: March 06, 2023 Supervising Physician Co-Signing Physician Notes Pt seen and examined by me, care coordinated w/ Elisha Alfredo PA-C, pls refer to her note above for further detail. Patient recently admitted for recurrent diverticulitis, was discharged on IV antibiotics due to her antibiotic allergy. Now admitted with abdominal discomfort, diagnosed with pancreatitis on admission with elevated lipase. This morning she feels much better, her diet was advanced, lipase normalized. Discussed with GI at the bedside, recommend to discontinue antibiotics, and monitor further. Patient is awake alert oriented, answering appropriately. Currently denies discomfort, and eating low fiber diet. Abdominal pain seems mostly resolved. Denies nausea or vomiting. Also denies any fevers chills chest pain or shortness of breath. Continue IV fluids for now, monitor how she tolerates diet. MD Thuan Subjective Pt was seen and examined in room 3241. She is feeling well this morning. F/U abd pain. N/V and pain has resolved. Tolerating clears and requesting something more solid for lunch. Review of Systems Review of Systems: All systems reviewed & are unremarkable except as noted in HPI & below Physical Exam Physical Exam: Gen: WD/WN, NAD, A&O x3 HEENT: Normocephalic, atraumatic, conjunctivae moist, sclerae anicteric, mucous membranes moist. Lung: Clear to Auscultation bilaterally, no wheezes/rales/rhonchi Heart: Regular rate, regular rhythm, no murmurs, rubs, or gallops Abdomen: Soft, NT, ND +BS x 4 Extremities: No edema Skin: Warm, no rash, negative turgor. Results & Data Results & Data Vital Signs (Past 12 Hours) Vital Signs Temp Pulse Resp BP Pulse Ox O2 Del Method 03/07/23 07:31 36.8 C 74 16 112/73 97 Room Air Laboratory Results Short CBC 03/06/23 03/07/23 Range/Units 16:19 06:05 WBC 8.43 5.96 (4.8-10.8) K/ul Hgb 12.5 10.6 L (12.0-16.0) g/dl Hct 38.9 32.5 L (37.0-47.0) % Plt Count 294 231 (130-400) K/uL BMP 03/06/23 03/07/23 16:19 06:05 Sodium 141 142 Potassium 3.7 3.9 Chloride 107 111 H Carbon Dioxide 27 27 BUN 17 9 Creatinine 0.65 0.55 L Glucose 102 H 88 Calcium 9.6 8.7 Liver Function 03/06/23 03/07/23 Range/Units 16:19 06:05 Total Bilirubin 0.3 0.4 (0.2-1.0) mg/dl AST 22 24 (13-39) U/L ALT 33 30 (7-52) U/L Alkaline Phosphatase 88 73 (34-104) U/L Albumin 4.3 3.5 (3.4-5.0) gm/dl Urine 03/07/23 Range/Units 02:20 Urine Color Yellow Urine Appearance Clear (Clear) Urine pH 7.5 (4.5-7.5) Ur Specific [place] 1.044 H (1.000-1.030) Urine Protein Negative (Negative) Urine Glucose (UA) Negative (Negative) Diagnostic Findings Abdomen/Pelvis CT 03/06/23 16:[address] WITH IV CONTRAST CT DOSE: 407.23 mGy.cm HISTORY: Acute left lower quadrant abdominal pain LLQ pain - worsening diverticulitis pain TECHNIQUE: Multiaxial CT images of the abdomen and pelvis were performed following the IV administration of 90 cc of Optiray, A dose lowering technique was utilized adhering to the principles of ALARA. COMPARISON STUDY: 03/01/2023 FINDINGS: Clear lung bases. Unremarkable spleen, pancreas and adrenal glands. Cholecystectomy. Unremarkable liver. Patency of the hepatic and portal veins. Unchanged appearance of the mild bilateral hydroureteronephrosis. Urinary bladder wall thickening with partial distention. Unchanged appearance of uterus and adnexa. No abdominal aortic aneurysm or lymphadenopathy. No bowel obstruction. Colonic diverticulosis. Partial sigmoidectomy with choledocho colonic anastomosis. Resolving acute sigmoid diverticulitis. No abscess or pneumoperitoneum. No CT evidence of acute appendicitis. Unremarkable soft tissues. Lumbar levoscoliosis. No acute fracture. IMPRESSION: 1. Resolving acute sigmoid diverticulitis. 2. No bowel obstruction, pneumoperitoneum or fluid collection to suggest abscess. 3. Mild bilateral hydroureteronephrosis. ACT 112: Negative or not required by law. The above report was generated using voice recognition software. It may contain grammatical, syntax or spelling errors. Electronically signed by: Drew Mcgowan M.D. 03/06/2023 5:52 PM Medications Administered Current Inpatient Medications Acetaminophen (Acetaminophen 325 Mg Tab) 650 mg PO Q4H PRN PRN Reason: pain/fever Stop: 04/05/23 20:43 Lactated Ringer's (Lr) 1,000 mls @ 150 mls/hr IV .Q6H40M LUIS Stop: 04/05/23 20:43 Last Admin: 03/07/23 11:14 Dose: 150 mls/hr Ketorolac Tromethamine (Ketorolac Tromethamine 15 Mg/Ml Vial) 15 mg IV Q8H PRN PRN Reason: moderate pain Stop: 03/11/23 20:43 Lactobacillus Acidophilus (Advanced Probiotic 1250 Mg Capsule) 2 cap PO DAILY LUIS Stop: 04/06/23 08:59 Last Admin: 03/07/23 09:16 Dose: 2 cap Lorazepam (Lorazepam 0.5 Mg Tab) 0.5 mg PO HS PRN PRN Reason: Sleep Stop: 04/05/23 21:00 Last Admin: 03/06/23 21:56 Dose: 0.5 mg Ondansetron HCl (Ondansetron Inj 2 Mg/Ml 2 Ml Vial) 4 mg IV Q6H PRN PRN Reason: Nausea And Vomiting Stop: 04/05/23 20:43 Pantoprazole Sodium (Pantoprazole 40 Mg Tab) 40 mg PO DAILY [facility] Stop: 04/06/23 08:59 Last Admin: 03/07/23 09:16 Dose: 40 mg (1) Abdominal pain Abdominal location: unspecified location Qualified Code(s): R10.9 - Unspecified abdominal pain
[2023-03-07] MEDS: LORazepam 0.5 MG TAB PO PRN (20:48)
[2023-03-08 07:10] LABS: Basophils # (auto) 0.06 K/uL (0-0.2); Basophils % (auto) 0.8 %; Eosinophils # (auto) 0.19 K/uL (0-0.50); Eosinophils % (auto) 2.7 %; Hematocrit (blood only) 36.3 % (37.0-47.0); Hemoglobin 11.9 g/dl (12.0-16.0); Immature Granulocytes # (auto) 0.01 K/uL (0.01-0.20); Immature Granulocytes % (auto) 0.1 %; Lymphocytes # (auto) 1.93 K/uL (1.2-3.4); Mean Corpuscular Hgb Conc 32.8 g/dL (32.0-36.0); Mean Corpuscular Volume 94.5 fL (80.0-100.0); Mean Platelet Volume 9.2 fL (9.4-12.4); Monocytes # (auto) 0.62 K/uL (0.11-0.59); Monocytes % (auto) 8.7 %; Neutrophils # (auto) 4.33 K/uL (1.40-6.50); Neutrophils % (auto) 60.7 %; Platelet Count 250 K/uL (130-400); RDW Coefficient of Variation 12.1 % (11.5-14.5); RDW Standard Deviation 42.4 fL (36.4-46.3); Red Blood Count 3.84 M/uL (4.20-5.40); White Blood Count 7.14 K/ul (4.8-10.8)
[2023-03-08 07:29] LABS: Albumin Globulin Ratio 1.6 (0.9-2); Albumin Level 3.9 gm/dl (3.4-5.0); BUN Creatinine Ratio 17.5 (10-20); Bilirubin,Total 0.4 mg/dl (0.2-1.0); Calcium 9.3 mg/dl (8.6-10.3); Creatinine Clr Calc Pharmacy 79.3 ml/min; Est GFR (African American) 121.8 ml/min; Est GFR (Non-African American) 105.1 ml/min; Globulin 2.4 gm/dl (2.5-4.0); Potassium 3.9 mmol/L (3.5-5.1); Total Protein 6.3 gm/dl (6.0-8.3)
[2023-03-08] MEDS: ADVANCED PROBIOTIC 1250 MG CAPSULE PO SCH (08:31)
[2023-03-08] MEDS: PANTOprazole 40 MG TAB PO SCH (08:32)
--- NOTE | 2023-03-08 10:35 | Discharge Summary ---
Discharge Summary Date of Service March 08, 2023 Notes For Next Care Provider Patient readmitted to the hospital after being hospitalized for acute sigmoid diverticulitis. She was initially discharged on IV ertapenem. She represented back to the hospital secondary to abdominal pain and nausea. It was felt to be related to the antibiotics. She was seen and evaluated by gastroenterology who felt she had a sufficient course of antibiotic therapy and ertapenem was since discontinued. Her GI symptoms resolved. On admission she did have mildly elevated lipase which resolved. She was tolerating diet at discharge. Medication Changes From Visit Hold Metamucil and Questran for 2 weeks until acute diverticulitis resolves. Admission HPI Per Admitting Provider 52-year-old female with PMH recurrent diverticulitis s/p bowel resection in 2016, anxiety, history of cholecystectomy, and other problems listed below who presents to the ED for evaluation of abdominal pain. History obtained from the patient and review of outpatient PCP and recent admission records. Patient recently admitted to [facility] 03/01 through 03/02 for acute sigmoid diverticulitis. Due to large allergy profile, patient was discharged on IV ertapenem to complete a 10-day course. Patient was seen in the ED on 03/03 for complaints of abdominal pain. Patient's lab work was unremarkable and she was discharged home. Patient reports ongoing lower cramping abdominal pain. She also reports severe nausea and poor p.o. intake. No vomiting. Reports bilious like diarrhea which has been ongoing since her cholecystectomy last year. She denies bright red bleeding per rectum and dark tarry stools. No fevers or chills. Denies chest pain or shortness of breath. No lightheadedness, dizziness, diaphoresis, syncopal events. No urinary symptoms. In the ED today, patient is hemodynamically stable. Labs are unremarkable with the exception of lipase 479. CT ABD/pelvis shows resolving acute sigmoid diverticulitis. Patient was given IVF and IV ketorolac. Admission Exam Per Admitting Provider Physical Exam Constitutional: WD/WN, vitals as above Eyes: PERRL, conjunctivae normal, anicteric sclerae ENMT:L external ear and nose normal, oropharynx normal Respiratory: normal respiratory effort, lungs clear to auscultation Cardiovascular: Rate/Rhythm: regular rate and regular rhythm Vessels: normal peripheral pulses Extremities: no edema Gastrointestinal (Abdomen): normal bowel sounds, soft, nontender, no hepatosplenomegaly Musculoskeletal: no cyanosis or clubbing, extremities motor strength 5/5 Skin: no rashes, warm and dry Neurologic: PERRL, EOMI, accommodation nl, no face palsy, no dysarthria Psychiatric: A+Ox3, euthymic affect Principal Dx & Hospital Course #1 = Principal Diagnosis (1) Abdominal pain: This is a 52-year-old female with significant past medical history of C. difficile, malignant melanoma status postsurgery, migraine, anxiety disorder and recurrent diverticulitis who presented to ED on 03/06 secondary to abdominal pain. Of significance patient recently hospitalized 03/01 to 03/02 secondary to recurrent diverticulitis. She was discharged on IV ertapenem which she has been receiving daily at [facility]. CT abdomen pelvis shows resolving acute sigmoid diverticulitis but otherwise no acute abnormality. Initial lipase was 479 which has since normalized. She was treated conservatively with clear liquid diet and IVF. Her symptoms have since resolved. She was seen and evaluated by GI who felt related to Ertapenem. They feel she received adequate course of antibiotic therapy and CT a/p reveal resolving diverticulitis. After discontinuation of antibiotics her symptoms resolved. She continues to have daily diarrhea which has been present since removal of her gallbladder. She feels this is unchanged. GI recommends to hold off on questran and metamucil for 2 weeks while recovering from diverticulitis and then she may resume. She will follow up with GI as outpatient. On day of discharge she is in good spirits and tolerating a low fiber diet. Her vital signs remained stable. On day of discharge pt complains of scratchy throat and concern for thrush; however on exam this was not appreciated. (2) Elevated lipase: (3) Sigmoid diverticulitis: (4) Diarrhea: Discharge Exam Gen: WD/WN, NAD, A&O x3 HEENT: Normocephalic, atraumatic, conjunctivae moist, sclerae anicteric, mucous membranes moist. no thrush. Lung: Clear to Auscultation bilaterally, no wheezes/rales/rhonchi Heart: Regular rate, regular rhythm, no murmurs, rubs, or gallops Abdomen: Soft, NT, ND +BS x 4 Extremities: No edema Skin: Warm, no rash, negative turgor. Updated Medication List Medication Instructions Recorded Confirmed Type multivitamin 1 tab PO QAM 07/15/20 03/06/23 History psyllium husk 3.4 gram/5.4 gram 1 tbsp PO HS 07/15/20 03/06/23 History oral powder (Metamucil) acetaminophen 325 mg tablet 650 mg PO QID PRN Pain 11/19/21 03/06/23 History (Tylenol) cholecalciferol (vitamin D3) 125 125 mcg PO QAM 11/19/21 03/06/23 History mcg (5,000 unit) tablet (Vitamin D3) loratadine 10 mg capsule 10 mg PO QAM PRN Congestion 01/13/22 03/06/23 History lorazepam 0.5 mg tablet 0.5 mg PO HS PRN Sleep 01/13/22 03/06/23 History Calcium Gummy 1 tab PO DAILY 10/12/22 03/06/23 History cholestyramine (with sugar) 4 gram 1 ea PO DAILY 02/28/23 03/06/23 History powder for susp in a packet clobetasol 0.05 % topical cream 1 applic topical DIRECTED PRN 02/28/23 03/06/23 History Skin Irritation fluticasone propionate 50 2 spray intranasal DAILY PRN 02/28/23 03/06/23 History mcg/actuation nasal Congestion spray,suspension omeprazole 20 mg capsule,delayed 20 mg PO DAILY 02/28/23 03/06/23 History release rimegepant 75 mg disintegrating 75 mg PO DIRECTED PRN Migraine 02/28/23 03/06/23 History tablet (Nurtec ODT) Headache etodolac 200 mg capsule 200 mg PO Q12H PRN pain #14 caps 03/03/23 03/06/23 Rx ondansetron 4 mg disintegrating 4 mg PO Q8H PRN nausea and 03/03/23 03/06/23 Rx tablet vomiting #30 tabs L.acidop,casei,lactis,rham-B.lact,sohan 2 cap PO DAILY 30 days #60 caps 03/08/23 Rx 625 mg (10 billion cell) capsule (Advanced Probiotic) dicyclomine 10 mg capsule 10 mg PO QID PRN abdominal pain 03/08/23 Rx #30 caps Hospital Stay Data Consultations 03/06/23 18:14 ED Decision to Admit Stat 03/06/23 20:44 Consult Gastroenterology Routine Diagnostic Imagining Performed Abdomen/Pelvis CT 03/06/23 16:[address] WITH IV CONTRAST CT DOSE: 407.23 mGy.cm HISTORY: Acute left lower quadrant abdominal pain LLQ pain - worsening diverticulitis pain TECHNIQUE: Multiaxial CT images of the abdomen and pelvis were performed following the IV administration of 90 cc of Optiray, A dose lowering technique was utilized adhering to the principles of ALARA. COMPARISON STUDY: 03/01/2023 FINDINGS: Clear lung bases. Unremarkable spleen, pancreas and adrenal glands. Cholecystectomy. Unremarkable liver. Patency of the hepatic and portal veins. Unchanged appearance of the mild bilateral hydroureteronephrosis. Urinary bladder wall thickening with partial distention. Unchanged appearance of uterus and adnexa. No abdominal aortic aneurysm or lymphadenopathy. No bowel obstruction. Colonic diverticulosis. Partial sigmoidectomy with choledocho colonic anastomosis. Resolving acute sigmoid diverticulitis. No abscess or pneumoperitoneum. No CT evidence of acute appendicitis. Unremarkable soft tissues. Lumbar levoscoliosis. No acute fracture. IMPRESSION: 1. Resolving acute sigmoid diverticulitis. 2. No bowel obstruction, pneumoperitoneum or fluid collection to suggest abscess. 3. Mild bilateral hydroureteronephrosis. ACT 112: Negative or not required by law. The above report was generated using voice recognition software. It may contain grammatical, syntax or spelling errors. Electronically signed by: Drew Mcgowan M.D. 03/06/2023 5:52 PM Pending Results Patient Have Any Pending Studies at Discharge: No Discharge Instructions Given to Patient (Per Discharging Provider) MEDICATION CHANGES: Dicyclomine 10mg four times daily as needed for abdominal cramping. Lactobacillus, 2 capsules, twice daily for probiotic. Antibiotics have been discontinued. SUMMARY OF TEST RESULTS: You were admitted to hospital due to abdominal pain, nausea and diarrhea. CT abdomen and pelvis revealed resolving diverticulitis. You were seen and evaluated by Gastroenterology. They felt it was safe to discontinue antibiotics. This was likely the cause of the symptoms. PENDING TEST RESULTS: None RECOMMENDATIONS FOR FOLLOW-UP: Please follow up with primary care provider as scheduled. Please hold Questran and Metamucil for two weeks and then you may resume. Continue low fiber diet until your follow up with Nesha Leos of GI. Recommend under going EGD and Colonoscopy as outpatient. OTHER INSTRUCTIONS: Seek medical attention if you have: * temperature above 101 * chest pain or trouble breathing * abdominal pain, nausea, vomiting * diarrhea, dark stools or bloody stools * any unanswered questions or concerns Call 911 if symptoms are severe. Please take good care of yourself. It has been a pleasure taking care of you. Please take care of yourself. If you have any questions regarding your recent hospitalization please contact [facility] and request Blanca Beltranist @ [phone]. Tierra Alfredo PA-C Total Time Total Time Spent Total Time Spent (In Minutes): 35 minutes Supervising Physician Co-Signing Physician Notes Pt seen and examined by me, care coordinated w/ B. ROSELINE Alfredo, pls refer to her note above for further detail. Patient recently admitted for recurrent diverticulitis, was discharged on IV antibiotics due to her antibiotic allergy. Now admitted with abdominal discomfort, diagnosed with pancreatitis on admission with elevated lipase. This morning she feels much better, her diet was advanced, lipase normalized. GI evaluated, patient is tolerating advancement of diet very well. Patient is awake alert oriented, answering appropriately. Currently denies discomfort, and eating low fiber diet. Abdominal pain seems mostly resolved. Denies nausea or vomiting. Also denies any fevers chills chest pain or shortness of breath. Patient would like to go home today, patient requested to follow-up with PCP and GI doctor as an outpatient.
== END 2023-03-08 15:55 | disposition home or self-care (01) ==
LOC: ED 16:00 → 3E 16:00 → SUATTDRO 18:39 → 3E 20:32